=== PATIENT | male | born 1945 | race Caucasian/White ===

== ENCOUNTER → 2016-09-02 | Day surgery (SDC) | payer BC ==
[2016-08-13 14:43] VITALS: BMI 23.0
[~2016-09-02] MED LIST: ASCO500T3 PO; CALC600T9 PO; FLAX1CAP11 PO; LPT10 PO; MULTTAB58 PO; PROPOFOL IV EMULSION 10 MG/ML 20 ML VIAL IV ONE; SODIUM CHLORIDE 0.9% 500ML 500 ML IV ONE
--- NOTE | 2016-09-02 14:07 | Endo History and Physical ---
History & Physical Date of Service: Sep 02, 2016. Chief Complaint: tubular adenoma of colon Referring Physician: Dr. Edmond Estrada History of Present Illness 71 yo CM who presents for colonoscopy secondary to history of colon polyps. Past Medical History Cancer, High Cholesterol Past Surgical History Hx Cardiac Surgery: No Hx Internal Defibrillator: No Hx Pacemaker: No Hx Abdominal Surgery: Yes (L/R INGUINAL HERNIA REPAIR) Hx of Implantable Prosthesis: No Hx Post-Op Nausea and Vomiting: No Hx Cancer Surgery: Yes (PROSTATECTOMY) Hx Thoracic Surgery: No Hx Orthopedic: No Hx Urinary Tract Surgery: No Family History None Social History Smoking Status: Never Smoker Hx Substance Use: No Hx Alcohol Use: No Allergies Coded Allergies: No Known Allergies (Verified , 08/13/16) Current Medications Reported Home Medications Medications Dose Route/Sig Max Daily Dose Days Date Category Flax Seed Oil (Flaxseed (Linseed)) 1 Cap Cap 1 Cap PO QAM 07/19/15 Reported Vitamin C (Ascorbic Acid) 500 Mg Tab 500 Mg PO BID 01/10/14 Reported Multivitamin (Multiple Vitamin) 1 Tab Tab 1 Tab PO NOON 01/10/14 Reported Calcium + D (Calcium Carbonate-Vitamin D) 1 Tab Tab 1 Tab PO BID 01/10/14 Reported Atorvastatin Calcium (Atorvastatin) 10 Mg Tab 10 Mg PO NOON 01/10/14 Reported Vital Signs Weight (Kilograms): 70.45 Height (Feet): 5 Height (Inches): 9 Date Time Temp Pulse Resp B/P Pulse Ox O2 Delivery O2 Flow Rate FiO2 09/02/16 13:51 171/95 09/02/16 13:50 36.8 82 20 179/107 98 Room Air Physical Exam General Appearance: WD/WN, no apparent distress Respiratory/Chest: Auscultation: breath sounds normal Cardiovascular: Heart Auscultation: RRR Abdomen: Bowel Sounds: normal Inspection & Palpation: soft, non-distended, no tenderness, guarding & rebound Assessment and Plan Assessment: 71 yo CM who presents for colonoscopy secondary to history of colon polyps. Plan: Proceed with colonoscopy.
--- NOTE | 2016-09-02 14:49 | GI REPORT ---
Procedure Date: 09/02/2016 2:03 PM Procedure: Colonoscopy Indications: High risk colon cancer surveillance: Personal history of colonic polyps Medicines: Monitored Anesthesia Care Complications: No immediate complications. Estimated Blood Loss: Estimated blood loss: none. Procedure: Pre-Anesthesia Assessment: - Prior to the procedure, a History and Physical was performed, and patient medications and allergies were reviewed. The patient's tolerance of previous anesthesia was also reviewed. The risks and benefits of the procedure and the sedation options and risks were discussed with the patient. All questions were answered, and informed consent was obtained. Prior Anticoagulants: The patient has taken no previous anticoagulant or antiplatelet agents. ASA Grade Assessment: II - A patient with mild systemic disease. After reviewing the risks and benefits, the patient was deemed in satisfactory condition to undergo the procedure. After I obtained informed consent, the scope was passed under direct vision. Throughout the procedure, the patient's blood pressure, pulse, and oxygen saturations were monitored continuously. The scope was introduced through the anus and advanced to the terminal ileum. The colonoscopy was performed without difficulty. The patient tolerated the procedure well. The quality of the bowel preparation was good. The terminal ileum, ileocecal valve, appendiceal orifice, and rectum were photographed. Findings: The entire examined colon appeared normal. Impression: - The entire examined colon is normal. - No specimens collected. Recommendation: - Resume previous diet. - Continue present medications. - No repeat colonoscopy due to age and the absence of advanced adenomas. - Return to primary care physician as previously scheduled. Luis Angel Sommer DO 09/02/2016 2:48:36 PM This report has been signed electronically. Note Initiated On: 09/02/2016 2:03 PM
--- NOTE | 2016-09-02 14:50 | Discharge Instructions ---
Endoscopy Patient Instructions Date / Procedure(s) Performed Sep 02, 2016. Colonoscopy Allergy Information Coded Allergies: No Known Allergies (Verified , 08/13/16) Discharge Date / Findings Sep 02, 2016. Normal colonoscopy Medication Instructions OK to resume all medications today as prescribed Reported Home Medications Medications Dose Route/Sig Max Daily Dose Days Date Category Flax Seed Oil (Flaxseed (Linseed)) 1 Cap Cap 1 Cap PO QAM 07/19/15 Reported Vitamin C (Ascorbic Acid) 500 Mg Tab 500 Mg PO BID 01/10/14 Reported Multivitamin (Multiple Vitamin) 1 Tab Tab 1 Tab PO NOON 01/10/14 Reported Calcium + D (Calcium Carbonate-Vitamin D) 1 Tab Tab 1 Tab PO BID 01/10/14 Reported Atorvastatin Calcium (Atorvastatin) 10 Mg Tab 10 Mg PO NOON 01/10/14 Reported Provider Instructions Activity Restrictions - No exercising or heavy lifting for 24 hours. - Do not drink alcohol the day of the procedure. - Do not drive a car or operate machinery until the day after the procedure. - Do not make any important decisions or sign important papers in 24 hours after the procedure. Following Day: - Return to full activity which may include returning to work/school. Diet Start your diet with liquids and light foods (jello, soup, juice, toast). Then eat your usual diet if not nauseated. Treatment For Common After Affects For mild abdominal pain, bloating, or excessive gas: - Rest - Eat lightly - Lie on right side Follow-Up Information Follow-up with Dr. Edmond Estrada as scheduled Anesthesia Information What You Should Know You have had a procedure that required some medicine to reduce anxiety and discomfort. This treatment is called moderate sedation. After receiving the treatment, you may be sleepy, but you will be able to breathe on your own. The effects of the treatment may last for several hours. Follow these instructions along with Activity/Diet recommendations noted above: * Do NOT do anything where dizziness or clumsiness would be dangerous. * Rest quietly at home today, then you can be up and about tomorrow. * Have a responsible person stay with you the rest of today. * You may have had an I.V. today. If so, you may take the dressing off later today. Recommendations Call your doctor if: * Trouble breathing * Continuous vomiting for more than 24 hours * Temperature above 101 degrees * Severe abdominal pain or bloating * Pain not relieved by pain medicine ordered * There is increased drainage or redness from any incision * A large amount of rectal bleeding greater than 2-3 tablespoons. (If you had a polyp/s removed or have hemorrhoids, a small amount of blood - from the rectum is to be expected.) * You have any unanswered questions or concerns. IN THE EVENT OF A SERIOUS EMERGENCY, GO TO THE NEAREST EMERGENCY ROOM Your discharge instructions were prepared by provider Luis Angel Sommer. Patient Instructions Signature Page Param Butts Patient (or Guardian) Signature/Date: I have read and understand the instructions given to me by my caregivers. Caregiver/RN/Doctor Signature/Date: The above-named patient and/or guardian has received patient instructions on this date. + Original Patient Signature Page (only) stays with chart. Please make copy for patient.
[2016-09-02 15:06] VITALS: BP 144/76; PULSE 58; O2SAT 96
--- NOTE | 2016-09-02 15:26 | Anesthesiology Progress Note ---
Anesthesia Post Op Note Date & Time Sep 02, 2016 at 15:26 Vital Signs Pain Intensity: 0 Vital Signs Past 12 Hours Date Time Temp Pulse Resp B/P Pulse Ox O2 Delivery O2 Flow Rate FiO2 09/02/16 15:06 58 20 144/76 96 Room Air 09/02/16 14:53 59 20 116/61 96 Room Air 09/02/16 14:37 36.8 58 20 108/61 95 Room Air 09/02/16 13:51 171/95 09/02/16 13:50 36.8 82 20 179/107 98 Room Air Notes Mental Status: alert / awake / arousable Nausea / Vomiting: adequately controlled Pain: adequately controlled Airway Patency, RR, SpO2: stable & adequate BP & HR: stable & adequate Hydration State: stable & adequate Anesthetic Complications: no major complications apparent
== END | disposition home or self-care (01) ==
LOC: C.GI 13:19
PROVIDERS: ATTEND Internal Medicine
DX: Z12.11 Encounter for screening for malignant neoplasm of colon (principal); Z86.010 Personal history of colon polyps; E78.00 Pure hypercholesterolemia, unspecified; Z90.79 Acquired absence of other genital organ(s)

== ENCOUNTER → 2016-12-18 | Outpatient (CLI) | payer BC ==
[~2016-12-18] MED LIST changes: -PROPOFOL IV EMULSION 10 MG/ML 20 ML VIAL IV ONE; -SODIUM CHLORIDE 0.9% 500ML 500 ML IV ONE
[2016-12-18 10:51] LABS: BASO % 0.3 %; BASO ABS # 0.02 K/uL (0-0.2); COMPLETE YES; EOS % 3.3 %; HEMATOCRIT 45.5 % (42-52); IG% 0.3 %; LYMPH % 26.8 %; LYMPH ABS # 1.55 K/uL (1.2-3.4); MEAN CELL VOLUME 90.8 fL (80-100); MEAN CORPUSCULAR HEMOGLOBIN 31.1 pg (25-34); MEAN CORPUSCULAR HGB CONC 34.3 g/dl (32-36); MEAN PLATELET VOLUME 10.7 fL (7.4-10.4); NEUT % 60.3 %; PLATELET COUNT 232 K/uL (130-400); RED BLOOD COUNT 5.01 M/uL (4.7-6.1); WHITE BLOOD COUNT 5.79 K/uL (4.8-10.8)
[2016-12-18 11:23] LABS: ESTIMATED AVERAGE GLUCOSE 117 mg/dl; HA1C FLAG Normal (Normal)
[2016-12-18 14:50] LABS: ALT/SGPT 38 U/L (12-78); AST/SGOT 25 U/L (15-37); BLOOD UREA NITROGEN 17 mg/dl (7-18); BUN/CREATININE RATIO 15.2 (10-20); CALCIUM 9.2 mg/dl (8.5-10.1); CARBON DIOXIDE 29 mmol/L (21-32); CHLORIDE 107 mmol/L (98-107); GLUCOSE 99 mg/dl (70-99); POTASSIUM 4.1 mmol/L (3.5-5.1); SODIUM 141 mmol/L (136-145)
[2016-12-18 14:53] LABS: ALKALINE PHOSPHATASE 96 U/L (45-117); CHOLESTEROL 162 mg/dl (0-200); CHOLESTEROL/HDL RATIO 3.1; HDL CHOLESTEROL 53 mg/dl; LDL CHOLESTEROL CALCULATED 80 mg/dl; TRIGLYCERIDES 145 mg/dl (0-150); VERY LOW DENSITY LIPOPROT CALC 29 mg/dl
== END | disposition home or self-care (01) ==
LOC: C.LABBC 09:08
PROVIDERS: ATTEND Internal Medicine Geriatric Medicine
DX: E78.5 Hyperlipidemia, unspecified (principal); R03.0 Elevated blood-pressure reading, without diagnosis of hypertension; C84.A0 Cutaneous T-cell lymphoma, unspecified, unspecified site; R73.9 Hyperglycemia, unspecified

== ENCOUNTER → 2017-01-26 | Outpatient (CLI) | payer BC | END | disposition home or self-care (01) | LOC: C.MAMM 08:46 | PROVIDERS: ATTEND Internal Medicine Geriatric Medicine | DX: M81.0 Age-related osteoporosis without current pathological fracture (principal); M85.89 Other specified disorders of bone density and structure, multiple sites ==

== ENCOUNTER → 2017-05-05 | Outpatient (CLI) | payer BC | END | disposition home or self-care (01) | LOC: C.LABBC 10:52 | PROVIDERS: ATTEND Urology | DX: C61 Malignant neoplasm of prostate (principal) ==

== ENCOUNTER 2017-12-18 20:42 | Inpatient (IN) | payer BC, OTHER ==
[~2017-12-18] VITALS: Ht 175.3 cm; Wt 76.7 kg
[2017-12-18] MEDS ORDERED: SODIUM CHLORIDE 0.9% 1000ML 1,000 ML IV STA ×2 (22:28→23:46)
--- NOTE | 2017-12-18 22:29 | EMERGENCY ROOM VISIT NOTE ---
History Report prepared by Oliver: Bradley Corea Under the Supervision of: Juan Ramon MezaO. First contact with patient: 22:19 Chief Complaint: GI ASSESSMENT Stated Complaint: PAIN IN GI TRACK Nursing Triage Summary: had episode of diarrhea X 3 after eating chicken last night, then started to experience abdominal pain and cramping. using pepto might be feeling better History of Present Illness The patient is a 72 year old male who presents to the Emergency Room with complaints of intermittent diarrhea beginning this morning. The patient states he woke up this morning and had an episode of diarrhea. He reports he had two more episodes following his first. The patient notes he has not had any more episodes today. He states he had soup for lunch and he developed severe abdominal discomfort. The patient reports he developed a fever of 100.1-101 degrees. He notes a history of prostate cancer and inguinal hernias. The patient denies chest pain, nausea, vomiting, trouble urinating, blood in his urine, having symptoms like this before, being around sick people, alcohol use, tobacco use, a history of a bowel obstruction or bowel surgeries, and recent antibiotic use. Source of History: patient Onset: this morning Symptom Intensity: 3 episodes Quality: other (diarrhea) Timing: intermittent Associated Symptoms: + abdominal pain, No chest pain, No nausea, No vomiting , No urinary symptoms Review of Systems See HPI for pertinent positives & negatives. A total of 10 systems reviewed and were otherwise negative. Past Medical & Surgical Medical Problems: (1) acute sigmoid diverticulitis with perforation (2) Inguinal hernia (3) Peritonitis (acute) generalized (4) Prostate cancer Family History Cancer Hypertension Social History Smoking Status: Never Smoker Smokeless Tobacco Use: No Alcohol Use: none Marital Status: Housing Status: lives with significant other Occupation Status: retired Current/Historical Medications Scheduled Ascorbic Acid (Vitamin C), 500 MG PO BID Atorvastatin (Lipitor), 10 MG PO DAILY AT NOON Calcium Carbonate-Vitamin D (Calcium + D), 1 TAB PO BID Fish Oil ([place]-3), 1 CAP PO QAM Lisinopril (Prinivil), 10 MG PO DAILY AT NOON Multiple Vitamin (Multivitamin), 1 TAB PO NOON Allergies Coded Allergies: No Known Allergies (Verified , 12/18/17) Physical Exam Vital Signs Date Time Temp Pulse Resp B/P (MAP) Pulse Ox O2 Delivery O2 Flow Rate FiO2 4/22/18 01:00 88 20 96 Room Air 12/19/17 01:00 96 12/19/17 00:57 174/85 12/18/17 22:38 85 18 160/81 95 Room Air 12/18/17 20:48 38.5 103 20 158/82 95 Room Air Physical Exam GENERAL: Patient is awake, alert, and in no acute distress. Patient is resting comfortably and showing no signs of anxiety EYES: The conjunctivae are clear. The pupils are round and reactive. EARS, NOSE, MOUTH AND THROAT: The nose is without any evidence of any deformity. Mucous membranes are moist tongue is midline NECK: The neck is nontender and supple. RESPIRATORY: Normal respiratory effort is noted there is no evidence of wheezing rhonchi or rales CARDIOVASCULAR: Regular rate and rhythm noted there no murmurs rubs or gallops normal S1 normal S2 GASTROINTESTINAL: The abdomen is soft. Bowel sounds are present in all quadrants. Abdomen is moderately distended and diffusely tender. No guarding or rigidity. BACK: No midline tenderness or or step-off noted range of motion in flexion extension as well as rotation no signs of muscle spasm noted MUSCULOSKELETAL/EXTREMITIES: There is no evidence of gross deformity full range of motion is noted in the hips and shoulders SKIN: There is no obvious evidence of any rash. There are no petechiae, pallor or cyanosis noted. NEUROLOGIC: Patient is awake alert and oriented x3 strength is symmetric patellar reflexes are 2+ bilaterally Medical Decision & Procedures ER Provider Diagnostic Interpretation: Radiology results as stated below per my review and radiologist interpretation: Preliminary Findings Only See Final Report For Complete Findings CT ABDOMEN & PELVIS With Contrast: Moderate-volume pneumoperitoneum. The source of the free air is likely a perforation of the sigmoid colon from diverticulitis. No drainable abscess. Renal cysts and hypodensities that are too small characterize. Bibasilar atelectasis. Radiologist: Luis Thompson M.D. Study ready at 23:17 and initial results transmitted at 23:41 Clear Time Type Notes 12/18/17 23:43 Call Doctor Regarding Bowel Perforation with Free Air, called Dr. Patel on 12/18 23:43 (-04:00) Chest x-ray per my interpretation: Heart size normal. No definite infiltrates. Atelectasis at both bases. No acute disease. Laboratory Results Test 12/18/17 22:35 12/18/17 22:43 12/18/17 23:30 Direct Bilirubin 0.1 mg/dl (0-0.2) Lipase 88 U/L (73-393) Bedside Hemoglobin 16.3 g/dl (14.0-18.0) Bedside Hematocrit 48 % (42-52) Bedside Sodium 135 mEq/L (135-144) Bedside Potassium 3.9 mEq/L (3.3-5.0) Bedside Chloride 100 mEq/L (101-112) Bedside Total CO2 24 mEq/l (24-31) Bedside Blood Urea Nitrogen 19 mg/dl (7-18) Bedside Creatinine 0.9 mg/dl (0.6-1.3) Bedside Glucose (other) 135 mg/dl (70-99) Bedside Ionized Calcium (Rudi) 1.21 mmol/l (1.12-1.32) Urine Color YELLOW Urine Appearance CLEAR (CLEAR) Urine pH 7.5 (4.5-7.5) Urine Specific [place] > 1.045 (1.000-1.030) Urine Protein NEG (NEG) Urine Glucose (UA) NEG (NEG) Urine Ketones NEG (NEG) Urine Occult Blood NEG (NEG) Urine Nitrite NEG (NEG) Urine Bilirubin NEG (NEG) Urine Urobilinogen NEG (NEG) Urine Leukocyte Esterase NEG (NEG) Laboratory results per my review. Medications Administered Medications (Trade) Dose Ordered Sig/Jillian Route Start Time Stop Time Status Last Admin Dose Admin Sodium Chloride 1,000 ml @ 999 mls/hr Q1H1M STAT IV 12/18/17 22:28 12/18/17 23:28 DC 12/18/17 22:38 999 MLS/HR Piperacillin Sod/ Tazobactam Sod (Zosyn Iv) 4.5 gm NOW STAT IV 12/18/17 23:40 12/18/17 23:41 DC 12/18/17 23:40 4.5 GM Sodium Chloride 1,000 ml @ 250 mls/hr Q4H STAT IV 12/18/17 23:46 12/19/17 03:22 DC 12/18/17 23:46 250 MLS/HR Lidocaine HCl (Xylocaine 1% Inj (Local)) 20 ml STK-MED ONCE .ROUTE 12/19/17 01:22 12/19/17 01:23 DC 12/19/17 04:08 12 ML Bacitracin (Bacitracin Oint) 45 appln STK-MED ONCE .ROUTE 12/19/17 01:23 12/19/17 01:24 DC 12/19/17 04:11 45 APPLN Bupivacaine HCl (Marcaine 0.5% MPF Inj) 30 ml STK-MED ONCE .ROUTE 12/19/17 01:23 12/19/17 01:24 DC 12/19/17 04:08 12 ML Cefazolin Sodium (Ancef 2000mg Iv Push) 2,000 mg NOW STAT IV 12/19/17 01:44 12/19/17 01:45 DC 12/19/17 02:25 2,000 MG Metronidazole 500 mg/Prmx 100 ml @ 100 mls/hr NOW STAT IV 12/19/17 01:47 12/19/17 02:46 DC 12/19/17 02:20 100 MLS/HR Vancomycin HCl (Vancomycin Iv) 50 mg STK-MED ONCE .ROUTE 12/19/17 01:50 12/19/17 01:51 DC 12/19/17 04:03 1,000 MG ED Course 2221: The patient was evaluated in room B12B. A complete history and physical examination were performed. 2228: Ordered NSS 1,000 ml @ 999 mls/hr IV 2340: Ordered Zosyn IV 4.5gm IV 2346: Ordered NSS 1,000 ml @ 250 mls/hr IV 2350: Upon reevaluation, the patient is resting comfortably. I discussed results and treatment plan with the patient. He verbalizes agreement and understanding. The patient will be evaluated for further management and care. 2352: I discussed the patient's case with Dr. Escalante, General Surgery. He recommended I discuss the case with the hospitalist. 0000: I spoke with Dr. Johnson of the [facility] Hospitalist system. The patient will be evaluated for further management and care. Medical Decision Differential diagnosis: Etiologies such as appendicitis, diverticulitis, PUD, biliary pathology, UTI, pancreatitis, obstruction, mesenteric ischemia, aortic pathology, infections, inflammatory bowel disease, renal colic, as well as others were entertained. Nursing notes reviewed. Additional history is obtained for the patient's significant other. The patient is a 72-year-old male who presented to the emergency department for an evaluation of abdominal pain. The patient noticed fever. He also noticed multiple episodes of loose stools. The patient's physical exam was consistent with significant lower abdominal tenderness but initially he had no guarding or rigidity. The patient had an elevated white blood cell count. For this reason CT abdomen and pelvis was obtained. The patient was found to have signs of diverticulitis with perforation and pneumoperitoneum. I discussed patient's laboratory and radiographic studies with him. He was treated with IV fluids as well as IV antibiotics. I discussed his case with the on-call general surgeon. They have agreed to evaluate the patient in the emergency department for further management and disposition. Medication Reconcilliation Current Medication List: was personally reviewed by me Blood Pressure Screening Patient's blood pressure: Elevated blood pressure Blood pressure disposition: Elevated BP felt to be situational Consults Time Called: 234 Consulting Physician: Dr. Escalante, General Surgery Returned Call: 2352 I discussed the patient's case with Dr. Escalante, General Surgery. He recommended I discuss the case with the hospitalist. Additional Consults: Time Called: 235 Consulted Physician: Dr. Johnson of the [facility] Hospitalist system Returned Call: 0000 Additional Comments: I spoke with Dr. Johnson of the [facility] Hospitalist system. The patient will be evaluated for further management and care. Impression Primary Impression: Diverticulitis of intestine with perforation Additional Impression: Abdominal pain Scribe Attestation The scribe's documentation has been prepared under my direction and personally reviewed by me in its entirety. I confirm that the note above accurately reflects all work, treatment, procedures, and medical decision making performed by me. Departure Information Dispostion Being Evaluated By Hospitalist Referrals Edmond Estrada M.D. (PCP) Patient Instructions [facility] Problem Qualifiers Primary Impression: Diverticulitis of intestine with perforation Diverticulitis site: large intestine Diverticulitis bleeding: unspecified bleeding status Qualified Codes: K57.20 - Diverticulitis of large intestine with perforation and abscess without bleeding Additional Impression: Abdominal pain Abdominal location: generalized Qualified Codes: R10.84 - Generalized abdominal pain
[2017-12-18] MEDS ORDERED: OPTIRAY 320 IV PRN (22:45)
[2017-12-18 22:52] LABS: HEMATOCRIT 46.9 % (42-52); HEMOGLOBIN 16.3 g/dL (14.0-18.0); MEAN CELL VOLUME 88.8 fL (80-100); MEAN CORPUSCULAR HEMOGLOBIN 30.9 pg (25-34); MEAN CORPUSCULAR HGB CONC 34.8 g/dl (32-36); MEAN PLATELET VOLUME 10.2 fL (7.4-10.4); PLATELET COUNT 196 K/uL (130-400); RED CELL DISTRIBUTION WIDTH CV 13.5 % (11.5-14.5); RED CELL DISTRIBUTION WIDTH SD 44.1 fL (36.4-46.3); WHITE BLOOD COUNT 12.19 K/uL (4.8-10.8)
[2017-12-18 22:58] LABS: ISTAT CREATININE 0.9 mg/dl (0.6-1.3); ISTAT IONIZED CALCIUM 1.21 mmol/l (1.12-1.32); ISTAT POTASSIUM 3.9 mEq/L (3.3-5.0)
[2017-12-18 23:10] LABS: BASO % 0.1 %; BASO ABS # 0.01 K/uL (0-0.2); IG# 0.03 K/uL (0.00-0.02); LYMPH ABS # 0.49 K/uL (1.2-3.4); MONO % 3.9 %; MONO ABS # 0.48 K/uL (0.11-0.59); NEUT % 91.8 %; NEUT ABS # 11.18 K/uL (1.4-6.5)
[2017-12-18 23:11] LABS: ALBUMIN 3.7 gm/dl (3.4-5.0); CALCIUM 9.6 mg/dl (8.5-10.1); CREATININE 1.11 mg/dl (0.60-1.40); POTASSIUM 3.9 mmol/L (3.5-5.1)
[2017-12-18 23:14] LABS: TOTAL PROTEIN 7.8 gm/dl (6.4-8.2)
[2017-12-18] MEDS ORDERED: ATOR10TA82 PO (23:26)
[2017-12-18] MEDS ORDERED: LISI10TA PO (23:26)
[2017-12-18] MEDS ORDERED: OMEG10007 PO (23:26)
[2017-12-18] MEDS ORDERED: PIPERACILLIN/TAZOBACTAM 4.5 GM/100ML D5W IV STA (23:40)
[2017-12-19] VITALS (10 sets, daily range): BP systolic 118–178; BP diastolic 62–84; PULSE 63–92; TEMP 36.8–38.1; O2SAT 93–97; Ht 175.3 cm; Wt 76.7 kg
[2017-12-19] MEDS ORDERED: LIDOCAINE HCL 1% 20 ML VIAL ONE (01:22)
[2017-12-19] MEDS ORDERED: BACITRACIN OINT 15 GM TUBE ONE (01:23)
[2017-12-19] MEDS ORDERED: BUPIVACAINE 0.5 % 5 MG/1 ML MPF 30ML VIAL ONE (01:23)
--- NOTE | 2017-12-19 01:28 | Surgery Consultation ---
Consultation Date of Consultation: Dec 19, 2017. Attending Physician: History of Present Illness pt is a 72 year old male who presents to ER with one day history diarrhea and lower abdominal pain with fever, T 101, pt started diarrhea in the morning yesterday, after lunch pt developed severe lower abdominal pain with T 101, the pain is located at middle lower abdomen, pt denies chest pain, no nausea, no vomiting, no bloody stool, no blood in urine, pt had prostatectomy in 2012 for prostate cancer, pt's last colonoscopy was done last year which was normal finding, Past Medical/Surgical History Medical Problems: (1) Diverticulitis of intestine with perforation Status: Acute Family History Cancer Hypertension Social History Smoking Status: Never Smoker Smokeless Tobacco Use: No Alcohol Use: none Drug Use: none Marital Status: Housing Status: lives with significant other Occupation Status: retired Allergies Coded Allergies: No Known Allergies (Verified , 12/18/17) Home Medications Scheduled Ascorbic Acid (Vitamin C), 500 MG PO BID Atorvastatin (Lipitor), 10 MG PO DAILY AT NOON Calcium Carbonate-Vitamin D (Calcium + D), 1 TAB PO BID Fish Oil (Monson-3), 1 CAP PO QAM Lisinopril (Prinivil), 10 MG PO DAILY AT NOON Multiple Vitamin (Multivitamin), 1 TAB PO NOON Current Inpatient Medications Current Inpatient Medications Medications (Trade) Dose Ordered Sig/Jillian Route Start Time Stop Time Status Last Admin Dose Admin Ioversol (Optiray 320) 100 ml UD PRN IV 12/18/17 22:45 12/22/17 22:44 Sodium Chloride 1,000 ml @ 250 mls/hr Q4H STAT IV 12/18/17 23:46 12/19/17 03:45 12/18/17 23:46 250 MLS/HR Review of Systems Constitutional: + fever Eyes: No worsening of vision, No eye pain, No redness, No discharge, No diplopia, No problem reported ENT: No hearing loss, No unusual epistaxis, No nasal symptoms, No sore throat, No tinnitus, No dental problems, No trouble swallowing, No problem reported Respiratory: No cough, No sputum, No wheezing, No shortness of breath, No dyspnea on exertion, No dyspnea at rest, No hemoptysis, No problem reported Cardiovascular: + problem reported (HTN), No chest pain, No orthopnea, No PND, No edema, No claudication, No palpitations Abdomen: + pain Musculoskeletal: + problem reported (S/P appendectomy, bilt inguinal hernia repair) Genitourinary - Male: + problem reported (S/P prostatectomy for prostate cancer ) Neurologic: No memory loss, No paralysis, No weakness, No numbness/tingling, No vertigo, No balance problems, No problem reported Psychiatric: No depression symptoms, No anhedonism, No anxiety, No insomnia, No substance abuse, No problem reported Hematologic / Lymphatic: No abnormal bleeding/bruising, No clotting problems, No swollen lymph nodes, No night sweats, No problem reported Integumentary: No rash, No itch, No new/changing skin lesions, No color change , No bleeding, No problem reported Allergic / Immunologic: No environmental allergies, No seasonal allergies, No pet sensitivities, No food allergies, No hives, No frequent infections, No poor healing, No prolonged convalescence, No problem reported Physical Exam Date Time Temp Pulse Resp B/P (MAP) Pulse Ox O2 Delivery O2 Flow Rate FiO2 12/19/17 01:00 96 12/18/17 22:38 85 18 160/81 95 Room Air 12/18/17 20:48 38.5 103 20 158/82 95 Room Air General Appearance: WD/WN, + mild distress Head: normocephalic Eyes: normal inspection ENT: normal ENT inspection Neck: supple, no JVD Respiratory/Chest: chest non-tender, lungs clear, normal breath sounds, no respiratory distress Cardiovascular: regular rate, rhythm, no edema, no gallop, no JVD, no murmur Abdomen/GI: soft, no pulsatile mass, + tenderness (at lower abdomen, with rebound pain, ), + distended, + guarding, + rebound Back: normal inspection Extremities/Musculoskelatal: normal inspection, no calf tenderness, normal capillary refill, no pedal edema Neurologic/Psych: no motor/sensory deficits, alert, normal mood/affect Skin: normal color, warm/dry, no rash Lymphatic: no adenopathy Laboratory Results Last 24 Hours Test 12/18/17 22:35 12/18/17 22:43 12/18/17 23:30 White Blood Count 12.19 K/uL Red Blood Count 5.28 M/uL Hemoglobin 16.3 g/dL Hematocrit 46.9 % Mean Corpuscular Volume 88.8 fL Mean Corpuscular Hemoglobin 30.9 pg Mean Corpuscular Hemoglobin Concent 34.8 g/dl Platelet Count 196 K/uL Mean Platelet Volume 10.2 fL Neutrophils (%) (Auto) 91.8 % Lymphocytes (%) (Auto) 4.0 % Monocytes (%) (Auto) 3.9 % Eosinophils (%) (Auto) 0.0 % Basophils (%) (Auto) 0.1 % Neutrophils # (Auto) 11.18 K/uL Lymphocytes # (Auto) 0.49 K/uL Monocytes # (Auto) 0.48 K/uL Eosinophils # (Auto) 0.00 K/uL Basophils # (Auto) 0.01 K/uL RDW Standard Deviation 44.1 fL RDW Coefficient of Variation 13.5 % Immature Granulocyte % (Auto) 0.2 % Immature Granulocyte # (Auto) 0.03 K/uL Sodium Level 135 mmol/L Potassium Level 3.9 mmol/L Chloride Level 102 mmol/L Carbon Dioxide Level 24 mmol/L Anion Gap 9.0 mmol/L 16.0 mmol/L Blood Urea Nitrogen 18 mg/dl Creatinine 1.11 mg/dl Est Creatinine Clear Calc Drug Dose 59.3 ml/min Estimated GFR () 75.9 Estimated GFR (Non- 65.5 BUN/Creatinine Ratio 15.9 Random Glucose 126 mg/dl Calcium Level 9.6 mg/dl Total Bilirubin 0.7 mg/dl Direct Bilirubin 0.1 mg/dl Aspartate Amino Transf (AST/SGOT) 26 U/L Alanine Aminotransferase (ALT/SGPT) 35 U/L Alkaline Phosphatase 93 U/L Total Protein 7.8 gm/dl Albumin 3.7 gm/dl Lipase 88 U/L Bedside Hemoglobin 16.3 g/dl Bedside Hematocrit 48 % Bedside Sodium 135 mEq/L Bedside Potassium 3.9 mEq/L Bedside Chloride 100 mEq/L Bedside Total CO2 24 mEq/l Bedside Blood Urea Nitrogen 19 mg/dl Bedside Creatinine 0.9 mg/dl Bedside Glucose (other) 135 mg/dl Bedside Ionized Calcium (Rudi) 1.21 mmol/l Urine Color YELLOW Urine Appearance CLEAR Urine pH 7.5 Urine Specific [place] > 1.045 Urine Protein NEG Urine Glucose (UA) NEG Urine Ketones NEG Urine Occult Blood NEG Urine Nitrite NEG Urine Bilirubin NEG Urine Urobilinogen NEG Urine Leukocyte Esterase NEG Assessment & Plan CT scan- Moderate -volume pneumoperitoneum, the source of the free air is likely a perforation of the sigmoid colon from diverticulitis, CXR- no acute abnormal finding, Assessment: pt is a 72 year old male who presents to ER with one day history diarrhea nd abdominal pain with T 101, WBC 11.2 CT scan- Moderate -volume pneumoperitoneum IMP: pneumoperitoneum, peritonitis, acute sigmoid diverticulitis with perforation, Plan, I recommend to do emergent exploratory laparotomy, possible bowel resection and stoma, D/W benefits, risk and alternatives of the surgery with pt and his , the risks - may include but not limit such as infection, bleeding , sepsis, multiple organs failure, SC, DVT, stroke, , they understood, they agree with the surgery, I answered all questions, pre-op EKG, IV antibiotic in,
[2017-12-19] MEDS ORDERED: METRONIDAZOLE 500MG / 100ML NSS IV STA (01:41)
--- NOTE | 2017-12-19 01:41 | History & Physical Bridge Note ---
H&P Re-Evaluation Bridge Note: I have examined the patient, reviewed the History & Physical and in the interval since the performance of the History & Physical I have noted the following changes of clinical significance: No changes noted
[2017-12-19] MEDS ORDERED: CEFAZOLIN SOD 2000MG/15 ML IV PUSH IV STA (01:44)
[2017-12-19] MEDS ORDERED: METRONIDAZOLE 500MG / NSS IV STA (01:47)
[2017-12-19] MEDS ORDERED: VANCOMYCIN HCL 1000MG/20ML VIAL ONE (01:50)
[2017-12-19] MEDS ORDERED: MIDAZOLAM HCL 1 MG/ML 2ML VIAL ONE (01:57)
[2017-12-19] MEDS ORDERED: FENTANYL CITRATE INJ 50 MCG/1 ML 2 ML VIAL ONE ×3 (01:57→04:52)
[2017-12-19] MEDS ORDERED: PROPOFOL IV EMULSION 10 MG/ML 20 ML VIAL IV ONE (02:50)
[2017-12-19] MEDS ORDERED: ROCURONIUM BROMIDE 10 MG/ML 5 ML VIAL IV ONE ×2 (02:51→03:20)
[2017-12-19] MEDS ORDERED: ONDANSETRON INJ 2 MG/ML 2 ML VIAL ONE (02:51)
[2017-12-19] MEDS ORDERED: LIDOCAINE HCL 2% 2 ML VIAL (20MG/ML) ONE (02:51)
[2017-12-19] MEDS ORDERED: NEOSTIGMINE METHYLSULFATE 5 MG/5 ML SYR ONE (02:52)
[2017-12-19] MEDS ORDERED: EpHEDrine SULFATE INJ 50 MG/ML AMP ONE (02:52)
[2017-12-19] MEDS ORDERED: DEXAMETHASONE SOD INJ 4 MG/ML VIAL ONE (02:52)
[2017-12-19] MEDS ORDERED: GLYCOPYRROLATE INJ 0.2 MG/ML VIAL ONE (02:52)
[2017-12-19] MEDS ORDERED: ONDANSETRON INJ 2 MG/ML 2 ML VIAL IV PRN ×2 (03:00→04:45)
[2017-12-19] MEDS ORDERED: MEPERIDINE HCL 25 MG/ML CARP IV PRN (03:00)
[2017-12-19] MEDS ORDERED: HYDROmorphone INJ 1 MG/ML SYR IV PRN (03:00)
[2017-12-19] MEDS ORDERED: FENTANYL CITRATE INJ 50 MCG/1 ML 2 ML VIAL IV PRN (03:00)
[2017-12-19] MEDS ORDERED: ATROPINE SULFATE 0.1 MG/ML 5ML SYR IV PRN (03:00)
[2017-12-19] MEDS ORDERED: LABETALOL HCL IV 5 MG/ML 20ML IV PRN (03:00)
[2017-12-19] MEDS ORDERED: EpHEDrine SULFATE INJ 50 MG/ML AMP IV PRN (03:00)
--- NOTE | 2017-12-19 04:32 | [facility] Post Operative Brief Note ---
Immediate Operative Summary Operative Date Dec 19, 2017. Pre-Operative Diagnosis Pneumoperitoneum, peritonitis, acute sigmoid diverticulitis with perforation Post-Operative Diagnosis Same as Preop Procedure(s) Performed Sigmoid Colon Resection with Placement of a Stoma; Appendectomy Surgeon Dr. Escalante [employer] Fundraising Director Surgeon(s) None Estimated Blood Loss 30 ml Findings See Below (stone in appendix, size 0.6x0.6cm) Pneumoperitoneum, peritonitis,acute sigmoid diverticulitis with perforation Fluids (cc crystalloids) 2000ml Specimens Microbiology 1. Perineal Fluid-gram stain, C & S, aerobic and anerobic Permanent A. Appendix B. Portion of Sigmoid Colon Drains DEBRA x1 Anesthesia Type General Complication(s) none Disposition Accompanied Pt To Recover: yes Disposition: Recovery Room / PACU
[2017-12-19] MEDS ORDERED: MoRPHine SULFATE 4 MG/ML 1 ML CARP\\VIAL IV PRN (04:45)
[2017-12-19] MEDS ORDERED: HYDROmorphone INJ 2 MG/ML SYR/VIAL IV PRN (04:45)
--- NOTE | 2017-12-19 05:34 | Anesthesiology Progress Note ---
Anesthesia Post Op Note Date & Time Dec 19, 2017 at 05:33 Vital Signs Pain Intensity: 2.0 Vital Signs Past 12 Hours Date Time Temp Pulse Resp B/P (MAP) Pulse Ox O2 Delivery O2 Flow Rate FiO2 12/19/17 05:20 36.2 65 16 148/87 98 Nasal Cannula 4 12/19/17 05:10 65 16 161/84 98 Nasal Cannula 4 12/19/17 05:00 69 16 158/82 100 Oxymask 10 12/19/17 04:50 66 16 171/93 100 Oxymask 10 12/19/17 04:44 36.4 88 16 154/80 100 Oxymask 10 12/19/17 01:00 88 20 96 Room Air 12/19/17 01:00 96 12/19/17 00:57 174/85 12/18/17 22:38 85 18 160/81 95 Room Air 12/18/17 20:48 38.5 103 20 158/82 95 Room Air Notes Mental Status: alert / awake / arousable, participated in evaluation Pt Amnestic to Procedure: Yes Nausea / Vomiting: adequately controlled Pain: adequately controlled Airway Patency, RR, SpO2: stable & adequate BP & HR: stable & adequate Hydration State: stable & adequate Anesthetic Complications: no major complications apparent
--- NOTE | 2017-12-19 05:56 | DIAGNOSTIC IMAGING REPORT ---
ABD/PELVIS IV CONTRAST ONLY CT DOSE: 306.75 mGy.cm HISTORY: Pain. Edema. diarrhea and fever TECHNIQUE: Multiaxial CT images of the abdomen and pelvis were performed following the use of intravenous contrast. A dose lowering technique was utilized adhering to the principles of ALARA. COMPARISON STUDY: None. FINDINGS: Lung bases are clear. Minimal basilar dependent atelectasis. Liver is uniform. Renal cysts are present bilaterally. No evidence renal hydronephrosis. Scattered pneumoperitoneum. Abdominal bowel pattern is nonobstructive. Findings of nonspecific small bowel enteritis. Probable moderate sigmoid diverticulitis. Minimal pericolonic infiltrative change. Scattered additional colonic diverticuli. IMPRESSION: 1. Mild bibasilar atelectasis. 2. Scattered small bubbles of free air throughout the upper and mid abdominal region. 3. This potentially originates from components of mild sigmoid diverticulitis versus scattered diverticulum throughout the remainder the colon. 4. Bilateral renal cysts. 5. No evidence for abscess collection or obstruction. The above report was generated using voice recognition software. It may contain grammatical, syntax or spelling errors. Electronically signed by: Eric Oliveira M.D. 12/19/2017 5:55 AM Dictated Date/Time: 12/19/2017 5:52 AM
--- NOTE | 2017-12-19 06:11 | DIAGNOSTIC IMAGING REPORT ---
CHEST 2 VIEWS ROUTINE CLINICAL HISTORY: ABDOMINAL PAIN/GI pain COMPARISON STUDY: 05/08/2013 FINDINGS: Mild emphysematous change. Lungs are considered clear. The diaphragms are smooth. IMPRESSION: Mild emphysematous change. No acute process. The above report was generated using voice recognition software. It may contain grammatical, syntax or spelling errors. Electronically signed by: Eric Oliveira M.D. 12/19/2017 6:10 AM Dictated Date/Time: 12/19/2017 6:10 AM
[2017-12-19] MEDS: PIPERACILL/TAZOBAC IV 3.375 GM in DEXTROSE 5% 100ML 100 ML IV SCH ×3 (06:12→21:15)
[2017-12-19] MEDS: D5W AND 1/2NSS + 20MEQ KCL 1,000 ML IV SCH ×2 (06:12→16:05)
[2017-12-19 06:24] LABS: BASO % 0.1 %; BASO ABS # 0.01 K/uL (0-0.2); HEMATOCRIT 43.2 % (42-52); HEMOGLOBIN 14.6 g/dL (14.0-18.0); IG# 0.04 K/uL (0.00-0.02); LYMPH % 3.5 %; LYMPH ABS # 0.48 K/uL (1.2-3.4); MEAN CELL VOLUME 89.8 fL (80-100); MEAN CORPUSCULAR HEMOGLOBIN 30.4 pg (25-34); MEAN CORPUSCULAR HGB CONC 33.8 g/dl (32-36); MEAN PLATELET VOLUME 10.3 fL (7.4-10.4); MONO % 3.6 %; MONO ABS # 0.49 K/uL (0.11-0.59); NEUT % 92.5 %; NEUT ABS # 12.69 K/uL (1.4-6.5); PLATELET COUNT 184 K/uL (130-400); RED CELL DISTRIBUTION WIDTH CV 13.6 % (11.5-14.5); RED CELL DISTRIBUTION WIDTH SD 44.9 fL (36.4-46.3); WHITE BLOOD COUNT 13.71 K/uL (4.8-10.8)
[2017-12-19 07:08] LABS: INR 1.1 (0.9-1.1)
[2017-12-19 07:13] LABS: CALCIUM 8.5 mg/dl (8.5-10.1); CREATININE 1.15 mg/dl (0.60-1.40); POTASSIUM 3.8 mmol/L (3.5-5.1)
[2017-12-19 07:15] LABS: TOTAL PROTEIN 6.5 gm/dl (6.4-8.2)
[2017-12-19] MEDS: MoRPHine SULFATE 2 MG/ML CARP IV PRN ×4 (07:54→21:15)
[2017-12-19] MEDS: ATORVASTATIN 10 MG TAB NG SCH (08:53)
[2017-12-19] MEDS: LISINOPRIL 10 MG TAB NG SCH (08:53)
[2017-12-19] MEDS ORDERED: ENOXAPARIN 40 MG/0.4 ML SYR SQ SCH (09:00)
--- NOTE | 2017-12-19 09:24 | OPERATIVE REPORT ---
DATE OF OPERATION: 12/19/2017 PREOPERATIVE DIAGNOSES: Pneumoperitoneum, peritonitis, acute sigmoid colon diverticulitis with perforation. POSTOPERATIVE DIAGNOSES: Pneumoperitoneum, peritonitis, acute sigmoid colon diverticulitis with perforation. PROCEDURE: Exploratory laparotomy, sigmoid colon resection, colostomy, appendectomy. SURGEON: Dr. Harmony Escalante. ANESTHESIA: General. ESTIMATED BLOOD LOSS: About 30 mL. FINDINGS: Pneumoperitoneum, peritonitis, acute sigmoid colon diverticulitis with perforation and stone in appendix. COMPLICATIONS: None. INDICATIONS FOR THE PROCEDURE: This is a 72-year-old gentleman who presented to the ED with acute diarrhea, abdominal pain, temperature 101; and the patient had a CT scan, with diagnoses of pneumoperitoneum, acute sigmoid colon diverticulitis with perforation. I recommended to do emergency exploratory laparotomy, possible bowel resection, stoma. I did talk to the patient and patient's about the benefit, the risk and alternate procedure. I indicated the risks may include, but not limited such as bleeding, infection, sepsis, multiple organ failure, DVT, myocardial infarction, stroke, abscess and even . The patient and his understand. They signed informed consent and I answered all questions. They agreed to proceed with the surgery. I answered all questions. DETAILS OF PROCEDURE: We brought the patient to the OR, put the patient in the supine position. The patient received SCD on bilateral legs to prevent DVT. Also, the patient received 2 g Ancef IV for prophylactic antibiotic. Also, the patient received 500 mg Flagyl for prophylactic antibiotics. The patient received general anesthesia without difficulty. The patient received a Charles catheter inserted. Abdomen was prepped and draped in routine sterile fashion. After time-out, I made a midline incision and into the abdomen without difficulty. Then, there are some free air coming off from the abdomen. There was moderate contamination. There was some pus in the abdominal cavity. We did send pus for culture and then, we mobilized the small bowel, found that the patient had acute sigmoid colon diverticulitis with perforation on the sigmoid colon. the perforation is small, but when I compress the sigmoid colon, there is some fluid came out from perforation, some fat and small bowel cover the perforation, We mobilized sigmoid colon and made a window on the mesentery. We used a TIA staple transection on the distal junction between the rectum and sigmoid colon. We rechecked the staple lines closed nicely, no leak, no active bleeding. Then, we made another window on the sigmoid colon about 5 cm above the perforation of the colon and then, we used the Endo-LOLA staple and transection the sigmoid colon and then we used a vascular staple to transection the mesentery. We rechecked and no active bleeding and based on that the patient had a moderate contamination and also the rectal area filled with full stool. We decided to do the temporary colostomy on the left side of the abdomen. First, I put a 10-mm DEBRA drainage on the pelvic area. Then, used normal saline 1 liter including 1 g vancomycin to flush the abdomen and suctioned all fluid out and we checked the liver and gallbladder is normal. However, in this moment, we checked the patient's appendix and found the patient had a large appendix stones inside the appendix and the patient's potential to develop acute appendicitis in the future. I decided to do the appendectomy. I used the harmonic take down the appendiceal and used Endo-LOLA staple transection on the base of the appendix, rechecked the staple line intact, no active bleeding and at this moment, we also removed the sigmoid colon about 10 cm long. We rechecked the staple line, all were intact and no active bleeding. Then, we created the temporary colostomy on the proximal sigmoid colon, distal descending colon on the left side of the abdomen. We removed the pouch over the skin on the left side of the abdomen and opened the fascia and passed two fingers, opened peritoneum and then passed the colon through the incision and then I used 0-Vicryl to attach the colon and the fascial layer interruptedly. At this moment, once the hemostasis obtained, then we closed the abdominal midline incision, fascial layer by using #1-PDS continuous running and we used #2-0 Vicryl to close subcutaneous layer continuous running, closed skin by using kaelyn. Now, we created a temporary colostomy on the left side of the abdomen. Now, we used a Bovie to takedown the staple line and no active bleeding and there is a colostomy, it is pink, good blood circulation. Then, I used a 0-Vicryl to attach the colostomy onto the dermal layer interruptedly, and we put the bag on and put the dressing on. The patient tolerated the procedure well. All the instruments, needle, and sponge count were correct x2 at the end of case. The patient was extubated in the OR and transferred to recovery room in stable condition. After procedure, I did talk to the patient and family members about the OR finding and procedure we did and they understand. The specimen was sent to pathology. I attest to the content of the Intraoperative Record and any orders documented therein. Any exceptions are noted below. BOOGIE
--- NOTE | 2017-12-19 09:27 | Surgery Progress Note ---
Surgery Progress Note Date of Service Dec 19, 2017. Subjective Post OP Day: POD # 0 s/p ex lap, sigmoid resection with end colostomy Objective Vital Signs: Date Time Temp Pulse Resp B/P (MAP) Pulse Ox O2 Delivery O2 Flow Rate FiO2 12/19/17 08:30 37.3 75 16 118/62 (80) 96 3.0 12/19/17 07:31 36.8 76 16 138/65 (89) 96 3.0 12/19/17 06:30 37.1 72 17 156/79 (104) 95 Nasal Cannula 2.0 12/19/17 06:00 37.1 63 16 150/74 (99) 93 Nasal Cannula 2.0 12/19/17 05:33 37.0 69 18 178/84 94 Nasal Cannula 2.0 12/19/17 05:33 94 Nasal Cannula 2.0 12/19/17 05:20 36.2 65 16 148/87 98 Nasal Cannula 4 12/19/17 05:10 65 16 161/84 98 Nasal Cannula 4 12/19/17 05:00 69 16 158/82 100 Oxymask 10 12/19/17 04:50 66 16 171/93 100 Oxymask 10 12/19/17 04:44 36.4 88 16 154/80 100 Oxymask 10 12/19/17 01:00 88 20 96 Room Air 12/19/17 01:00 96 12/19/17 00:57 174/85 12/18/17 22:38 85 18 160/81 95 Room Air 12/18/17 20:48 38.5 103 20 158/82 95 Room Air Physical Exam: MYRA drainage (bloody serosanguineous), nasogastric drainage, urine output (clear yellow urine) General Appearance: WD/WN, no apparent distress Head: normocephalic, atraumatic Neck: trachea midline Respiratory/Chest: no respiratory distress, no accessory muscle use Abdomen: non distended, soft, no organomegaly, no pulsatile mass, + tenderness (appropriate post op), + pertinent finding (ostomy present, mild edema, pink, no ostomy output.) Incision(s): clean, dry (dressing clean and dry, incision not inspected POD # 0 ) Laboratory Results: Results Past 24 Hours Test 12/18/17 22:35 12/18/17 22:43 12/18/17 23:30 12/19/17 05:58 Range/Units White Blood Count 12.19 13.71 4.8-10.8 K/uL Red Blood Count 5.28 4.81 4.7-6.1 M/uL Hemoglobin 16.3 14.6 14.0-18.0 g/dL Hematocrit 46.9 43.2 42-52 % Mean Corpuscular Volume 88.8 89.8 80-100 fL Mean Corpuscular Hemoglobin 30.9 30.4 25-34 pg Mean Corpuscular Hemoglobin Concent 34.8 33.8 32-36 g/dl Platelet Count 196 184 130-400 K/uL Mean Platelet Volume 10.2 10.3 7.4-10.4 fL Neutrophils (%) (Auto) 91.8 92.5 % Lymphocytes (%) (Auto) 4.0 3.5 % Monocytes (%) (Auto) 3.9 3.6 % Eosinophils (%) (Auto) 0.0 0.0 % Basophils (%) (Auto) 0.1 0.1 % Neutrophils # (Auto) 11.18 12.69 1.4-6.5 K/uL Lymphocytes # (Auto) 0.49 0.48 1.2-3.4 K/uL Monocytes # (Auto) 0.48 0.49 0.11-0.59 K/uL Eosinophils # (Auto) 0.00 0.00 0-0.5 K/uL Basophils # (Auto) 0.01 0.01 0-0.2 K/uL RDW Standard Deviation 44.1 44.9 36.4-46.3 fL RDW Coefficient of Variation 13.5 13.6 11.5-14.5 % Immature Granulocyte % (Auto) 0.2 0.3 % Immature Granulocyte # (Auto) 0.03 0.04 0.00-0.02 K/uL Sodium Level 135 134 136-145 mmol/L Potassium Level 3.9 3.8 3.5-5.1 mmol/L Chloride Level 102 104 98-107 mmol/L Carbon Dioxide Level 24 23 21-32 mmol/L Anion Gap 9.0 16.0 7.0 3-11 mmol/L Blood Urea Nitrogen 18 15 7-18 mg/dl Creatinine 1.11 1.15 0.60-1.40 mg/dl Est Creatinine Clear Calc Drug Dose 59.3 57.2 ml/min Estimated GFR () 75.9 72.8 Estimated GFR (Non- 65.5 62.8 BUN/Creatinine Ratio 15.9 13.1 10-20 Random Glucose 126 161 70-99 mg/dl Calcium Level 9.6 8.5 8.5-10.1 mg/dl Total Bilirubin 0.7 0.9 0.2-1 mg/dl Direct Bilirubin 0.1 0-0.2 mg/dl Aspartate Amino Transf (AST/SGOT) 26 24 15-37 U/L Alanine Aminotransferase (ALT/SGPT) 35 29 12-78 U/L Alkaline Phosphatase 93 78 45-117 U/L Total Protein 7.8 6.5 6.4-8.2 gm/dl Albumin 3.7 3.0 3.4-5.0 gm/dl Lipase 88 73-393 U/L Bedside Hemoglobin 16.3 14.0-18.0 g/dl Bedside Hematocrit 48 42-52 % Bedside Sodium 135 135-144 mEq/L Bedside Potassium 3.9 3.3-5.0 mEq/L Bedside Chloride 100 101-112 mEq/L Bedside Total CO2 24 24-31 mEq/l Bedside Blood Urea Nitrogen 19 7-18 mg/dl Bedside Creatinine 0.9 0.6-1.3 mg/dl Bedside Glucose (other) 135 70-99 mg/dl Bedside Ionized Calcium (Rudi) 1.21 1.12-1.32 mmol/l Urine Color YELLOW Urine Appearance CLEAR CLEAR Urine pH 7.5 4.5-7.5 Urine Specific [place] > 1.045 1.000-1.030 Urine Protein NEG NEG Urine Glucose (UA) NEG NEG Urine Ketones NEG NEG Urine Occult Blood NEG NEG Urine Nitrite NEG NEG Urine Bilirubin NEG NEG Urine Urobilinogen NEG NEG Urine Leukocyte Esterase NEG NEG Globulin 3.5 2.5-4.0 gm/dl Albumin/Globulin Ratio 0.9 0.9-2 Test 12/19/17 06:31 Range/Units Prothrombin Time 11.2 9.0-12.0 SECONDS Prothromb Time International Ratio 1.1 0.9-1.1 Microbiology Results 12/19/17 Gram Stain - Final, Resulted 12/19/17 Bacterial Culture, Resulted Pending Assessment & Plan POD # 0 s/p ex lap, sigmoid resection with end Colostomy -vitals stable -afebrile - moderate pain controlled - ostomy pink, mild edema - myra drain with bloody serosanguineous output, H&H stable - Leukocytosis of 13K, slight increase most likely post op - adequate urine output Plan: Continue current pain management Continue NGT to LIS today D/C Charles Continue IV Fluids Continue NPO Continue myra drain to bulb suction OOB to chair and ambulation with assistance later today Continue IV Antibiotics, await results of culture, consult ID repeat am labs Dr. Escalante has seen and examined patient, agrees with above
[2017-12-20] MEDS: D5W AND 1/2NSS + 20MEQ KCL 1,000 ML IV SCH ×2 (01:19→13:42)
[2017-12-20 03:30] VITALS: BP 142/82; PULSE 88; TEMP 37.4; O2SAT 92
[2017-12-20] MEDS: METRONIDAZOLE / NSS 500 MG in PREMIXED NSS 100 ML IV SCH ×3 (06:33→23:04)
[2017-12-20 07:02] VITALS: BP 152/84; PULSE 90; TEMP 37.9; O2SAT 94
[2017-12-20 07:13] LABS: HEMATOCRIT 34.2 % (42-52); HEMOGLOBIN 11.7 g/dL (14.0-18.0); MEAN CELL VOLUME 89.5 fL (80-100); MEAN CORPUSCULAR HEMOGLOBIN 30.6 pg (25-34); MEAN CORPUSCULAR HGB CONC 34.2 g/dl (32-36); MEAN PLATELET VOLUME 9.6 fL (7.4-10.4); PLATELET COUNT 164 K/uL (130-400); RED CELL DISTRIBUTION WIDTH CV 14.1 % (11.5-14.5); RED CELL DISTRIBUTION WIDTH SD 46.2 fL (36.4-46.3); WHITE BLOOD COUNT 11.36 K/uL (4.8-10.8)
[2017-12-20 07:42] LABS: CREATININE 0.94 mg/dl (0.60-1.40); POTASSIUM 3.9 mmol/L (3.5-5.1)
[2017-12-20] MEDS: ATORVASTATIN 10 MG TAB NG SCH (09:38)
[2017-12-20] MEDS: CIPROFLOXACIN / D5W 400 MG in PREMIXED IN D5W 200 ML IV SCH ×2 (09:38→20:49)
[2017-12-20] MEDS: LISINOPRIL 10 MG TAB NG SCH (09:38)
[2017-12-20] MEDS: MoRPHine SULFATE 2 MG/ML CARP IV PRN (09:39)
--- NOTE | 2017-12-20 09:49 | Clinical Documentation Query ---
CLINICAL DOCUMENTATION QUERY 72-y/o male with pneumoperitoneum, peritonitis, & acute sigmoid colon diverticulitis with perforation. He presented febrile 38.5, tachycardic 103, and with leukocytosis 12.19. In your clinical opinion is this patient being managed for: ( ) Early sepsis Present on Admission (POA) treated with IVF boluses, early surgical intervention, and aggressive IV antibiotics. ( ) Not Agree ( ) Other explanation of clinical findings (Please Explain) ( ) Unable to determine (Please Define) ( ) Need to Discuss The medical record reflects the following clinical findings, treatment, and risk factors. Clinical Indicators: As above. Treatment: IVF boluses, daily CBC's, Surgical intervention, IV Cipro, IV Flagyl, IV Zosyn, Risk Factors: Age, Perforated bowel. Please clarify and document your clinical opinion in the progress notes and discharge summary. Terms such as "probable", "suspected", "likely", "questionable", "possible", or "still to be ruled out" are acceptable. IF IN AGREEMENT, YOU MUST DOCUMENT ABOVE DIAGNOSTIC STATEMENT IN DAILY PROGRESS NOTES AND DISCHARGE SUMMARY. This document is not part of the patient's record. SIRS Criteria SIRS criteria are present in many hospitalized patients, including those who never develop infection and never incur adverse outcomes. SIRS may simply reflect an appropriate host response that is frequently adaptive. SIRS criteria, such as pyrexia or neutrophilia should alert the CDS to a potential infectious process. 2 of 4 SIRS criteria may clinically support both an infectious process and a systemic process, i.e. Sepsis. Temperature >38C or <36C Heart Rate >90/min Respiratory Rate >20/min or PaCO2 <32 mm Hg WBC >12,000/mm3 or <4000/mm3 or >10% immature bands Thank You, Franklyn Britt, RN [phone]
--- NOTE | 2017-12-20 10:23 | Progress Note ---
Progress Note Date of Service Dec 20, 2017. Progress Note ID Consult Dictated #[id number] A/P: 1. Peritonitis 2. Fever 3. Leukocytosis - improving -Continue IV abx for now, follow OR cultures -Will follow, thank you
--- NOTE | 2017-12-20 11:04 | INFECT. DISEASE CONSULTATION ---
DATE OF CONSULTATION: 12/20/2017 HISTORY OF PRESENT ILLNESS: This is a 72-year-old gentleman who presented to the hospital on December 18 with acute onset lower abdominal pain and a fever of 101 degrees at home. He also complained of diarrhea which had started 1 day prior to admission. In the Emergency Room, a CAT scan of the abdomen and pelvis was performed and did show free air and perforation. There was no abscess or collection. He was evaluated by surgery and taken to the operating room on the where he underwent appendectomy and repair of a perforation. He was initially placed on Zosyn and then was changed to Cipro and Flagyl. Overnight, he had a T-max of 37.9. Overall, he is feeling better. His pain is controlled. He states he has less abdominal spasm today. His leukocytosis improved from 13 to 11. Fluid culture was obtained in the operating room and is pending. He remains on antibiotics. He currently denies any fevers or chills. He is tolerating antibiotics well. His NG tube is still in place. He is hungry. He denies any chest pain, cough or shortness of breath. REVIEW OF SYSTEMS: His remaining review of systems is unremarkable. Infectious diseases was consulted for p.o. antibiotics. PAST MEDICAL HISTORY: Significant for history of diverticulitis with perforation. FAMILY HISTORY: Noncontributory. SOCIAL HISTORY: Negative for tobacco use, alcohol use or drug use. ALLERGIES: He has no known drug allergies. CURRENT MEDICATIONS: Include Cipro, Flagyl, lisinopril, Lipitor, potassium, Zofran, morphine, Dilaudid. PHYSICAL EXAMINATION: VITAL SIGNS: He is currently febrile with temperature of 37.9. This is his T-max for the past 24 hours, pulse 90, respiratory rate 16, blood pressure 152/84, oxygen saturation 94% on room air. GENERAL: He is awake, alert and oriented x3. He is in no acute distress. HEENT: Mucous membranes are moist. Extraocular muscles are intact. NG tube is in place with bilious drainage. HEART: Regular. LUNGS: Clear. ABDOMEN: Soft. Ostomy is present with minimal liquid stool. DEBRA drain is in place with serosanguineous fluid. Dressings are intact. EXTREMITIES: There is no lower extremity edema. LABORATORY STUDIES: CBC today, white blood cell count of 11.3, hemoglobin 11.7, platelets 164. Chemistry panel: Sodium 133, potassium 3.9, chloride 102, bicarbonate 27, BUN 13, creatinine 0.9, glucose 118. LFTs are normal. UA was negative in the ER. Cultures are pending. IMAGING DATA: As above. ASSESSMENT AND PLAN: Peritonitis. He will remain on empiric antibiotics pending the results of cultures. If he continues to have fevers, blood culture should be obtained. Additional antibiotic recommendations will be made when cultures are final and the patient is tolerating a p.o. diet. We will follow along with you. Thank you for this consultation.
[2017-12-20 14:58] VITALS: BP 124/72; PULSE 95; TEMP 37.7; O2SAT 94
[2017-12-20 16:00] VITALS: O2SAT 94
--- NOTE | 2017-12-20 18:04 | Surgery Progress Note ---
Surgery Progress Note Date of Service Dec 20, 2017. Subjective Post OP Day: 1 + feeling well pt is stable, good control incision pain, no nausea, no vomiting, DEBRA 150 ml, NG tube -550ml, Objective Vital Signs: Date Time Temp Pulse Resp B/P (MAP) Pulse Ox O2 Delivery O2 Flow Rate FiO2 12/20/17 16:00 94 Room Air 12/20/17 14:58 37.7 95 18 124/72 (89) 94 Room Air 12/20/17 07:30 Room Air 12/20/17 07:02 37.9 90 16 152/84 (106) 94 Room Air 12/20/17 03:30 37.4 88 16 142/82 (102) 92 Room Air 12/19/17 23:25 Room Air 12/19/17 23:04 37.4 12/19/17 23:00 37.8 92 18 124/71 (88) 94 Room Air 12/19/17 19:05 37.4 88 16 130/69 (89) 97 Room Air General Appearance: WD/WN, no apparent distress Head: normocephalic Neck: supple, no JVD Respiratory/Chest: chest non-tender, lungs clear Cardiovascular: regular rate, rhythm, no edema, no gallop, no JVD, no murmur Abdomen: normal bowel sounds, non distended, soft, no organomegaly, + tenderness Incision(s): clean, dry, intact Extremities: normal range of motion, non-tender, normal inspection Laboratory Results: Results Past 24 Hours Test 12/20/17 06:47 Range/Units White Blood Count 11.36 4.8-10.8 K/uL Red Blood Count 3.82 4.7-6.1 M/uL Hemoglobin 11.7 14.0-18.0 g/dL Hematocrit 34.2 42-52 % Mean Corpuscular Volume 89.5 80-100 fL Mean Corpuscular Hemoglobin 30.6 25-34 pg Mean Corpuscular Hemoglobin Concent 34.2 32-36 g/dl RDW Standard Deviation 46.2 36.4-46.3 fL RDW Coefficient of Variation 14.1 11.5-14.5 % Platelet Count 164 130-400 K/uL Mean Platelet Volume 9.6 7.4-10.4 fL Sodium Level 133 136-145 mmol/L Potassium Level 3.9 3.5-5.1 mmol/L Chloride Level 102 98-107 mmol/L Carbon Dioxide Level 27 21-32 mmol/L Anion Gap 4.0 3-11 mmol/L Blood Urea Nitrogen 13 7-18 mg/dl Creatinine 0.94 0.60-1.40 mg/dl Est Creatinine Clear Calc Drug Dose 70.0 ml/min Estimated GFR () 92.9 Estimated GFR (Non- 80.1 BUN/Creatinine Ratio 14.1 10-20 Random Glucose 118 70-99 mg/dl Calcium Level 8.0 8.5-10.1 mg/dl Assessment & Plan continue treatment, repeat labs in am, will F/U
[2017-12-20 23:00] VITALS: BP 112/70; PULSE 91; TEMP 37.6; O2SAT 94
[2017-12-21] MEDS: D5W AND 1/2NSS + 20MEQ KCL 1,000 ML IV SCH ×2 (03:12→18:35)
[2017-12-21] MEDS ORDERED: NURSING DECISION MEDICATION ORDER SCH (05:00)
[2017-12-21] MEDS: METRONIDAZOLE / NSS 500 MG in PREMIXED NSS 100 ML IV SCH ×3 (06:29→22:45)
[2017-12-21 07:07] VITALS: BP 134/76; PULSE 81; TEMP 37; O2SAT 96
[2017-12-21 07:58] LABS: BASO % 0.1 %; BASO ABS # 0.01 K/uL (0-0.2); EOS % 0.8 %; EOS ABS # 0.07 K/uL (0-0.5); HEMOGLOBIN 11.5 g/dL (14.0-18.0); IG# 0.01 K/uL (0.00-0.02); LYMPH % 9.3 %; LYMPH ABS # 0.77 K/uL (1.2-3.4); MEAN CELL VOLUME 88.8 fL (80-100); MEAN CORPUSCULAR HGB CONC 33.8 g/dl (32-36); MEAN PLATELET VOLUME 10.1 fL (7.4-10.4); MONO % 8.4 %; MONO ABS # 0.69 K/uL (0.11-0.59); NEUT % 81.3 %; NEUT ABS # 6.69 K/uL (1.4-6.5); PLATELET COUNT 177 K/uL (130-400); RED CELL DISTRIBUTION WIDTH CV 13.7 % (11.5-14.5); RED CELL DISTRIBUTION WIDTH SD 44.8 fL (36.4-46.3); WHITE BLOOD COUNT 8.24 K/uL (4.8-10.8)
[2017-12-21 08:24] LABS: ALBUMIN 2.5 gm/dl (3.4-5.0); CALCIUM 8.1 mg/dl (8.5-10.1); CREATININE 0.9 mg/dl (0.60-1.40); POTASSIUM 3.7 mmol/L (3.5-5.1)
[2017-12-21 08:27] LABS: TOTAL PROTEIN 6.3 gm/dl (6.4-8.2)
[2017-12-21] MEDS: CIPROFLOXACIN / D5W 400 MG in PREMIXED IN D5W 200 ML IV SCH ×2 (08:57→20:32)
[2017-12-21] MEDS: LISINOPRIL 10 MG TAB NG SCH (08:57)
[2017-12-21] MEDS: ATORVASTATIN 10 MG TAB NG SCH (08:57)
--- NOTE | 2017-12-21 09:50 | Surgery Progress Note ---
Surgery Progress Note Date of Service Dec 21, 2017. 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) + feeling well, + ambulating, + bowel movement (small amount of liquid stool in ostomy), + pain controlled, No complaints, No chest pain, No SOB, No nausea, No vomiting Objective Vital Signs: Date Time Temp Pulse Resp B/P (MAP) Pulse Ox O2 Delivery O2 Flow Rate FiO2 12/21/17 07:20 Room Air 12/21/17 07:07 37.0 81 18 134/76 (95) 96 Room Air 12/20/17 23:30 Room Air 12/20/17 23:00 37.6 91 16 112/70 (84) 94 Room Air 12/20/17 16:00 94 Room Air 12/20/17 14:58 37.7 95 18 124/72 (89) 94 Room Air Physical Exam: MYRA drainage (bloody serosanguienous) General Appearance: WD/WN, no apparent distress Head: normocephalic, atraumatic Neck: trachea midline Respiratory/Chest: no respiratory distress, no accessory muscle use Abdomen: non distended, soft, no organomegaly, no pulsatile mass, + tenderness (right lower quadrant and midline incision), + pertinent finding (ostomy: pink and liquid stool present) Incision(s): clean, dry, intact, no erythema, no drainage Laboratory Results: Results Past 24 Hours Test 12/21/17 07:30 Range/Units White Blood Count 8.24 4.8-10.8 K/uL Red Blood Count 3.83 4.7-6.1 M/uL Hemoglobin 11.5 14.0-18.0 g/dL Hematocrit 34.0 42-52 % Mean Corpuscular Volume 88.8 80-100 fL Mean Corpuscular Hemoglobin 30.0 25-34 pg Mean Corpuscular Hemoglobin Concent 33.8 32-36 g/dl Platelet Count 177 130-400 K/uL Mean Platelet Volume 10.1 7.4-10.4 fL Neutrophils (%) (Auto) 81.3 % Lymphocytes (%) (Auto) 9.3 % Monocytes (%) (Auto) 8.4 % Eosinophils (%) (Auto) 0.8 % Basophils (%) (Auto) 0.1 % Neutrophils # (Auto) 6.69 1.4-6.5 K/uL Lymphocytes # (Auto) 0.77 1.2-3.4 K/uL Monocytes # (Auto) 0.69 0.11-0.59 K/uL Eosinophils # (Auto) 0.07 0-0.5 K/uL Basophils # (Auto) 0.01 0-0.2 K/uL RDW Standard Deviation 44.8 36.4-46.3 fL RDW Coefficient of Variation 13.7 11.5-14.5 % Immature Granulocyte % (Auto) 0.1 % Immature Granulocyte # (Auto) 0.01 0.00-0.02 K/uL Sodium Level 134 136-145 mmol/L Potassium Level 3.7 3.5-5.1 mmol/L Chloride Level 101 98-107 mmol/L Carbon Dioxide Level 29 21-32 mmol/L Anion Gap 4.0 3-11 mmol/L Blood Urea Nitrogen 13 7-18 mg/dl Creatinine 0.90 0.60-1.40 mg/dl Est Creatinine Clear Calc Drug Dose 73.1 ml/min Estimated GFR () 97.9 Estimated GFR (Non- 84.4 BUN/Creatinine Ratio 14.5 10-20 Random Glucose 110 70-99 mg/dl Calcium Level 8.1 8.5-10.1 mg/dl Total Bilirubin 0.7 0.2-1 mg/dl Aspartate Amino Transf (AST/SGOT) 22 15-37 U/L Alanine Aminotransferase (ALT/SGPT) 19 12-78 U/L Alkaline Phosphatase 63 45-117 U/L Total Protein 6.3 6.4-8.2 gm/dl Albumin 2.5 3.4-5.0 gm/dl Globulin 3.8 2.5-4.0 gm/dl Albumin/Globulin Ratio 0.7 0.9-2 Assessment & Plan POD # 2 s/p ex lap, sigmoid resection with end Colostomy -vitals stable -afebrile last shift - minimal pain ,controlled - ostomy pink, mild edema, liquid stool output, now with some soft stool present on reexamination with DR. Escalante - myra drain with bloody serosanguineous output, H&H stable - Leukocytosis resolved - adequate urine output - Culture showing + E. Coli Plan: Continue current pain management, will add po percocet prn D/C NGT Continue IV Fluids Start clear liquids, advised to take it slow Continue myra drain to bulb suction OOB to chair and ambulation with assistance Continue IV Antibiotics, appreciate ID recs repeat am labs Dressing change tomorrow am and daily Continue SCDs and incentive spirometry Add Iv Protonix daily Dr. Escalante has seen and examined patient, agrees with above
[2017-12-21] MEDS ORDERED: OXYCODONE/ACETAMINOPHEN 5-325 TAB PO PRN ×2 (10:45)
[2017-12-21] MEDS: PANTOprazole INJ 40 MG in SYRINGE 0 ML IV SCH (11:09)
--- NOTE | 2017-12-21 15:16 | Progress Note ---
Subjective Date of Service: Dec 21, 2017. Subjective Pt evaluation today including: conversation w/ patient, physical exam, chart review, lab review pt seen in followup, feeling much better today, ngt out, eating clears, tolerating. well controlled pain, no f/c. remains on cipro and gill IV tolerating well. no n/v. Culture with pansensitive E. coli and bacteroides. all remaining ros reviewed and are negative. Problem List Medical Problems: (1) Diverticulitis of intestine with perforation Status: Acute Objective Vital Signs Date Time Temp Pulse Resp B/P (MAP) Pulse Ox O2 Delivery O2 Flow Rate FiO2 12/21/17 07:20 Room Air 12/21/17 07:07 37.0 81 18 134/76 (95) 96 Room Air 12/20/17 23:30 Room Air 12/20/17 23:00 37.6 91 16 112/70 (84) 94 Room Air 12/20/17 16:00 94 Room Air Physical Exam General Appearance: WD/WN, no apparent distress Eyes: normal inspection, EOMI Neck: supple Respiratory/Chest: lungs clear, normal breath sounds, no respiratory distress, + decreased breath sounds Cardiovascular: regular rate, rhythm, no edema Abdomen: non tender, soft, + pertinent finding (ostomy pink, myra drain in place) Extremities: non-tender, no pedal edema Neurologic/Psychiatric: alert, oriented x 3 Skin: normal color Laboratory Results Item Value Date Time Gram Stain - Final Resulted 12/19/17 0244 Peritoneal Fluid Last 24 Hours Test 12/21/17 07:30 White Blood Count 8.24 K/uL Red Blood Count 3.83 M/uL Hemoglobin 11.5 g/dL Hematocrit 34.0 % Mean Corpuscular Volume 88.8 fL Mean Corpuscular Hemoglobin 30.0 pg Mean Corpuscular Hemoglobin Concent 33.8 g/dl Platelet Count 177 K/uL Mean Platelet Volume 10.1 fL Neutrophils (%) (Auto) 81.3 % Lymphocytes (%) (Auto) 9.3 % Monocytes (%) (Auto) 8.4 % Eosinophils (%) (Auto) 0.8 % Basophils (%) (Auto) 0.1 % Neutrophils # (Auto) 6.69 K/uL Lymphocytes # (Auto) 0.77 K/uL Monocytes # (Auto) 0.69 K/uL Eosinophils # (Auto) 0.07 K/uL Basophils # (Auto) 0.01 K/uL RDW Standard Deviation 44.8 fL RDW Coefficient of Variation 13.7 % Immature Granulocyte % (Auto) 0.1 % Immature Granulocyte # (Auto) 0.01 K/uL Sodium Level 134 mmol/L Potassium Level 3.7 mmol/L Chloride Level 101 mmol/L Carbon Dioxide Level 29 mmol/L Anion Gap 4.0 mmol/L Blood Urea Nitrogen 13 mg/dl Creatinine 0.90 mg/dl Est Creatinine Clear Calc Drug Dose 73.1 ml/min Estimated GFR () 97.9 Estimated GFR (Non- 84.4 BUN/Creatinine Ratio 14.5 Random Glucose 110 mg/dl Calcium Level 8.1 mg/dl Total Bilirubin 0.7 mg/dl Aspartate Amino Transf (AST/SGOT) 22 U/L Alanine Aminotransferase (ALT/SGPT) 19 U/L Alkaline Phosphatase 63 U/L Total Protein 6.3 gm/dl Albumin 2.5 gm/dl Globulin 3.8 gm/dl Albumin/Globulin Ratio 0.7 Assessment and Plan (1) Peritonitis (acute) generalized Assessment & Plan: continue cipro and gill for now, when able to tolerated po can change to augmentin 875mg po bid. will need 14 days. will continue to follow.
[2017-12-21 15:26] VITALS: BP 142/81; PULSE 80; TEMP 37.2; O2SAT 95
[2017-12-21 23:07] VITALS: BP 136/72; PULSE 76; TEMP 37; O2SAT 98
[2017-12-22] MEDS: D5W AND 1/2NSS + 20MEQ KCL 1,000 ML IV SCH ×2 (07:42→19:00)
[2017-12-22 07:57] VITALS: BP 138/78; PULSE 64; TEMP 36.3; O2SAT 96
[2017-12-22 08:03] LABS: CREATININE 0.78 mg/dl (0.60-1.40)
[2017-12-22 08:20] LABS: HEMATOCRIT 32.3 % (42-52); HEMOGLOBIN 11.1 g/dL (14.0-18.0); MEAN CELL VOLUME 88.3 fL (80-100); MEAN CORPUSCULAR HEMOGLOBIN 30.3 pg (25-34); MEAN CORPUSCULAR HGB CONC 34.4 g/dl (32-36); MEAN PLATELET VOLUME 9.7 fL (7.4-10.4); PLATELET COUNT 221 K/uL (130-400); RED CELL DISTRIBUTION WIDTH CV 13.6 % (11.5-14.5); RED CELL DISTRIBUTION WIDTH SD 44.1 fL (36.4-46.3); WHITE BLOOD COUNT 7.09 K/uL (4.8-10.8)
[2017-12-22 08:28] LABS: CALCIUM 7.9 mg/dl (8.5-10.1); CREATININE 0.82 mg/dl (0.60-1.40); POTASSIUM 3.5 mmol/L (3.5-5.1)
[2017-12-22] MEDS: LISINOPRIL 10 MG TAB NG SCH (09:18)
[2017-12-22] MEDS: ATORVASTATIN 10 MG TAB NG SCH (09:18)
[2017-12-22] MEDS: PANTOprazole INJ 40 MG in SYRINGE 0 ML IV SCH (09:19)
[2017-12-22] MEDS ORDERED: POTASSIUM CHLORIDE 10 MEQ TABCR PO STA (10:43)
--- NOTE | 2017-12-22 11:15 | Surgery Progress Note ---
Surgery Progress Note Date of Service Dec 22, 2017. Subjective Post OP Day: 2 + feeling well pt is doing better, less abdominal pain, no nausea, no vomiting, colostomy is working, the pathology report is reviewed with pt. DEBRA 290ml Objective Vital Signs: Date Time Temp Pulse Resp B/P (MAP) Pulse Ox O2 Delivery O2 Flow Rate FiO2 12/22/17 07:57 36.3 64 14 138/78 (98) 96 Room Air 12/22/17 07:40 Room Air 12/21/17 23:40 Room Air 12/21/17 23:07 37.0 76 18 136/72 (93) 98 Room Air 12/21/17 16:30 Room Air 12/21/17 15:26 37.2 80 16 142/81 (101) 95 Room Air General Appearance: WD/WN, no apparent distress Head: normocephalic Neck: supple, no JVD Respiratory/Chest: chest non-tender Cardiovascular: regular rate, rhythm, no edema, no gallop, no JVD, no murmur Abdomen: normal bowel sounds, non tender, non distended, soft, no organomegaly Incision(s): clean, dry, intact Extremities: normal range of motion, non-tender, normal inspection Laboratory Results: Results Past 24 Hours Test 12/22/17 07:09 Range/Units White Blood Count 7.09 4.8-10.8 K/uL Red Blood Count 3.66 4.7-6.1 M/uL Hemoglobin 11.1 14.0-18.0 g/dL Hematocrit 32.3 42-52 % Mean Corpuscular Volume 88.3 80-100 fL Mean Corpuscular Hemoglobin 30.3 25-34 pg Mean Corpuscular Hemoglobin Concent 34.4 32-36 g/dl RDW Standard Deviation 44.1 36.4-46.3 fL RDW Coefficient of Variation 13.6 11.5-14.5 % Platelet Count 221 130-400 K/uL Mean Platelet Volume 9.7 7.4-10.4 fL Sodium Level 134 136-145 mmol/L Potassium Level 3.5 3.5-5.1 mmol/L Chloride Level 103 98-107 mmol/L Carbon Dioxide Level 26 21-32 mmol/L Anion Gap 5.0 3-11 mmol/L Blood Urea Nitrogen 9 7-18 mg/dl Creatinine 0.82 0.60-1.40 mg/dl Est Creatinine Clear Calc Drug Dose 80.3 ml/min Estimated GFR () 101.7 Estimated GFR (Non- 87.7 BUN/Creatinine Ratio 10.6 10-20 Random Glucose 108 70-99 mg/dl Calcium Level 7.9 8.5-10.1 mg/dl Assessment & Plan continue treatment, repeat labs in am, will F/U 12/22/17 soft diet, monitor DEBRA output will F/U continue treatment, repeat labs in am, will F/U
--- NOTE | 2017-12-22 11:21 | Progress Note ---
Subjective Date of Service: Dec 22, 2017. Subjective Pt evaluation today including: conversation w/ patient, physical exam, chart review, lab review pt continues to improve. remains on clears but tolerating well. remains on abx but reached stop date. afebrile. wbc improving. OR culture with E. coli and B. frag. tolerating abx. no pain, ostomy functioning. all remaining ros reviewed and are negative. Problem List Medical Problems: (1) Diverticulitis of intestine with perforation Status: Acute Objective Vital Signs Date Time Temp Pulse Resp B/P (MAP) Pulse Ox O2 Delivery O2 Flow Rate FiO2 12/22/17 07:57 36.3 64 14 138/78 (98) 96 Room Air 12/22/17 07:40 Room Air 12/21/17 23:40 Room Air 12/21/17 23:07 37.0 76 18 136/72 (93) 98 Room Air 12/21/17 16:30 Room Air 12/21/17 15:26 37.2 80 16 142/81 (101) 95 Room Air Physical Exam General Appearance: WD/WN, no apparent distress Eyes: normal inspection, EOMI Neck: supple Respiratory/Chest: lungs clear, normal breath sounds, no respiratory distress Cardiovascular: regular rate, rhythm, no edema Abdomen: soft, + pertinent finding (ostomy functioning) Extremities: non-tender, no pedal edema Neurologic/Psychiatric: alert, oriented x 3 Skin: normal color Laboratory Results Item Value Date Time Gram Stain - Final Resulted 12/19/17 0244 Peritoneal Fluid Last 24 Hours Test 12/22/17 07:09 White Blood Count 7.09 K/uL Red Blood Count 3.66 M/uL Hemoglobin 11.1 g/dL Hematocrit 32.3 % Mean Corpuscular Volume 88.3 fL Mean Corpuscular Hemoglobin 30.3 pg Mean Corpuscular Hemoglobin Concent 34.4 g/dl RDW Standard Deviation 44.1 fL RDW Coefficient of Variation 13.6 % Platelet Count 221 K/uL Mean Platelet Volume 9.7 fL Sodium Level 134 mmol/L Potassium Level 3.5 mmol/L Chloride Level 103 mmol/L Carbon Dioxide Level 26 mmol/L Anion Gap 5.0 mmol/L Blood Urea Nitrogen 9 mg/dl Creatinine 0.82 mg/dl Est Creatinine Clear Calc Drug Dose 80.3 ml/min Estimated GFR () 101.7 Estimated GFR (Non- 87.7 BUN/Creatinine Ratio 10.6 Random Glucose 108 mg/dl Calcium Level 7.9 mg/dl Assessment and Plan (1) Peritonitis (acute) generalized Assessment & Plan: continue cipro and gill for now, when able to tolerated po can change to augmentin 875mg po bid. will need 14 days post op, will continue IV abx for now while on clears
[2017-12-22] MEDS: AMPICILLIN/SULBACTAM SOD INJ 3,000 MG in SODIUM CHLORIDE 0.9% 100ML 100 ML IV SCH ×3 (12:09→23:41)
[2017-12-22 14:57] VITALS: BP 134/73; PULSE 76; TEMP 36.9; O2SAT 95
[2017-12-22 22:55] VITALS: BP 138/80; PULSE 71; TEMP 36.8; O2SAT 96
[2017-12-23] MEDS: D5W AND 1/2NSS + 20MEQ KCL 1,000 ML IV SCH ×2 (05:14→15:50)
[2017-12-23] MEDS: AMPICILLIN/SULBACTAM SOD INJ 3,000 MG in SODIUM CHLORIDE 0.9% 100ML 100 ML IV SCH ×4 (05:44→23:41)
[2017-12-23 07:49] VITALS: BP 120/78; PULSE 74; TEMP 36.8; O2SAT 96
[2017-12-23 08:46] LABS: HEMATOCRIT 33.7 % (42-52); HEMOGLOBIN 11.5 g/dL (14.0-18.0); MEAN CELL VOLUME 88.9 fL (80-100); MEAN CORPUSCULAR HEMOGLOBIN 30.3 pg (25-34); MEAN CORPUSCULAR HGB CONC 34.1 g/dl (32-36); MEAN PLATELET VOLUME 9.4 fL (7.4-10.4); PLATELET COUNT 251 K/uL (130-400); RED CELL DISTRIBUTION WIDTH CV 13.8 % (11.5-14.5); WHITE BLOOD COUNT 8.04 K/uL (4.8-10.8)
[2017-12-23] MEDS: ATORVASTATIN 10 MG TAB NG SCH (08:58)
[2017-12-23] MEDS: LISINOPRIL 10 MG TAB NG SCH (08:58)
[2017-12-23 09:21] LABS: CALCIUM 8.1 mg/dl (8.5-10.1); CREATININE 0.81 mg/dl (0.60-1.40); POTASSIUM 3.7 mmol/L (3.5-5.1)
--- NOTE | 2017-12-23 11:29 | Surgery Progress Note ---
Surgery Progress Note Date of Service Dec 23, 2017. Subjective Post OP Day: 3 + feeling well pt is doing fine, no abdominal pain, colostomy nurse is teaching pt how change colostomy bag, pt denies nausea, no vomiting, Objective Vital Signs: Date Time Temp Pulse Resp B/P (MAP) Pulse Ox O2 Delivery O2 Flow Rate FiO2 12/23/17 07:50 Room Air 12/23/17 07:49 36.8 74 14 120/78 (92) 96 Room Air 12/22/17 23:35 Room Air 12/22/17 22:55 36.8 71 16 138/80 (99) 96 Room Air 12/22/17 15:50 Room Air 12/22/17 14:57 36.9 76 20 134/73 (93) 95 Room Air General Appearance: WD/WN, no apparent distress Head: normocephalic Neck: supple, no JVD Respiratory/Chest: chest non-tender, lungs clear Cardiovascular: regular rate, rhythm, no edema, no gallop, no JVD, no murmur Abdomen: normal bowel sounds, non tender, non distended, soft Incision(s): clean, dry, intact Extremities: normal range of motion, non-tender, normal inspection Laboratory Results: Results Past 24 Hours Test 12/23/17 08:18 Range/Units White Blood Count 8.04 4.8-10.8 K/uL Red Blood Count 3.79 4.7-6.1 M/uL Hemoglobin 11.5 14.0-18.0 g/dL Hematocrit 33.7 42-52 % Mean Corpuscular Volume 88.9 80-100 fL Mean Corpuscular Hemoglobin 30.3 25-34 pg Mean Corpuscular Hemoglobin Concent 34.1 32-36 g/dl RDW Standard Deviation 45.0 36.4-46.3 fL RDW Coefficient of Variation 13.8 11.5-14.5 % Platelet Count 251 130-400 K/uL Mean Platelet Volume 9.4 7.4-10.4 fL Sodium Level 138 136-145 mmol/L Potassium Level 3.7 3.5-5.1 mmol/L Chloride Level 106 98-107 mmol/L Carbon Dioxide Level 24 21-32 mmol/L Anion Gap 7.0 3-11 mmol/L Blood Urea Nitrogen 8 7-18 mg/dl Creatinine 0.81 0.60-1.40 mg/dl Est Creatinine Clear Calc Drug Dose 81.3 ml/min Estimated GFR () 102.2 Estimated GFR (Non- 88.2 BUN/Creatinine Ratio 9.8 10-20 Random Glucose 101 70-99 mg/dl Calcium Level 8.1 8.5-10.1 mg/dl Assessment & Plan continue treatment, repeat labs in am, will F/U 12/22/17 soft diet, monitor DEBRA output will F/U 12/23/17 doing fine, possible D/C home tomorrow, I agree with ID treatment plan, regular diet continue treatment, repeat labs in am, will F/U 12/22/17 soft diet, monitor DEBRA output will F/U
--- NOTE | 2017-12-23 14:17 | Progress Note ---
Subjective Date of Service: Dec 23, 2017. Subjective Pt evaluation today including: conversation w/ patient, physical exam, chart review, lab review pt seen in followup,feeling well. eating regular diet, tolerating well. pain well controlled. no f/c. tolerating unasyn. wbc nml. all remaining ros reviewed and are negative. Problem List Medical Problems: (1) Diverticulitis of intestine with perforation Status: Acute Objective Vital Signs Date Time Temp Pulse Resp B/P (MAP) Pulse Ox O2 Delivery O2 Flow Rate FiO2 12/23/17 07:50 Room Air 12/23/17 07:49 36.8 74 14 120/78 (92) 96 Room Air 12/22/17 23:35 Room Air 12/22/17 22:55 36.8 71 16 138/80 (99) 96 Room Air 12/22/17 15:50 Room Air 12/22/17 14:57 36.9 76 20 134/73 (93) 95 Room Air Physical Exam General Appearance: WD/WN, no apparent distress Eyes: normal inspection, EOMI Neck: supple Respiratory/Chest: lungs clear, normal breath sounds, no respiratory distress Cardiovascular: regular rate, rhythm, no edema Abdomen: non tender, soft, + pertinent finding (ostomy intact, myra drain with min sersang drainage) Extremities: non-tender, no pedal edema Neurologic/Psychiatric: alert, oriented x 3 Skin: normal color Laboratory Results Item Value Date Time Gram Stain - Final Resulted 12/19/17 0244 Peritoneal Fluid Gram Stain - Final Resulted 12/19/17 0244 Peritoneal Fluid Last 24 Hours Test 12/23/17 08:18 White Blood Count 8.04 K/uL Red Blood Count 3.79 M/uL Hemoglobin 11.5 g/dL Hematocrit 33.7 % Mean Corpuscular Volume 88.9 fL Mean Corpuscular Hemoglobin 30.3 pg Mean Corpuscular Hemoglobin Concent 34.1 g/dl RDW Standard Deviation 45.0 fL RDW Coefficient of Variation 13.8 % Platelet Count 251 K/uL Mean Platelet Volume 9.4 fL Sodium Level 138 mmol/L Potassium Level 3.7 mmol/L Chloride Level 106 mmol/L Carbon Dioxide Level 24 mmol/L Anion Gap 7.0 mmol/L Blood Urea Nitrogen 8 mg/dl Creatinine 0.81 mg/dl Est Creatinine Clear Calc Drug Dose 81.3 ml/min Estimated GFR () 102.2 Estimated GFR (Non- 88.2 BUN/Creatinine Ratio 9.8 Random Glucose 101 mg/dl Calcium Level 8.1 mg/dl Assessment and Plan (1) Peritonitis (acute) generalized Assessment & Plan: continue unasyn can change to augmentin 875mg po bid upon d.c. will need 14 days post op, will continue IV abx for now for d/c in am.
[2017-12-23 15:10] VITALS: BP 160/89; PULSE 75; TEMP 36.8; O2SAT 96
[2017-12-23 20:03] VITALS: BP 149/63; PULSE 77; O2SAT 97
[2017-12-23 23:20] VITALS: BP 158/82; PULSE 72; TEMP 36.9; O2SAT 97
[2017-12-24] MEDS: D5W AND 1/2NSS + 20MEQ KCL 1,000 ML IV SCH (04:01)
[2017-12-24] MEDS: AMPICILLIN/SULBACTAM SOD INJ 3,000 MG in SODIUM CHLORIDE 0.9% 100ML 100 ML IV SCH (05:48)
[2017-12-24 07:26] VITALS: BP 156/76; PULSE 70; TEMP 36.8; O2SAT 93
[2017-12-24] MEDS ORDERED: OXYC-57 PO (08:22)
[2017-12-24] MEDS ORDERED: AMOX875T PO (08:23)
--- NOTE | 2017-12-24 08:24 | Discharge Instructions ---
Discharge Instructions Date of Service Dec 24, 2017. Admission Reason for Admission: Acute Sigmoid Diverticulitis W Perforation, Perito Discharge Discharge Diagnosis / Problem: same Discharge Goals Goal(s): Decrease discomfort, Improve function Activity Recommendations Activity Limitations: per Instructions/Follow-up section No heavy lifting over 10 pounds for 6 weeks No strenuous activity until cleared by surgeon No submerging incision underwater for 2 weeks (no bathing, swimming, or hot tubs ) No driving for 1 week. [address] driving while taking narcotic pain medication or until you are pain free . Instructions / Follow-Up Instructions / Follow-Up You may shower when you get home. Let water hit your back and wash hair. Sponge bath abdomen while drain is in place. Gently clean incision with soap and water Home health will be helping with ostomy care. Light activity and walking is encouraged to prevent blood clots from forming in your legs You will be given narcotic pain medication as needed for moderate to severe pain. This medication may make you drowsy. Medication may cause constipation. May take extra strength Tylenol or Ibuprofen as needed for mild pain Record drain output and color daily Follow-up in surgical office on Wednesday with Dr. Escalante, please call office at to make an appointment. Take antibiotics as directed with food. Take one pill tonight and then twice a day for 9 days. Current Hospital Diet Patient's current hospital diet: Low Fiber Diet Discharge Diet Recommended Diet: Low Fiber Diet Procedures Procedures Performed: Sigmoid Colon Resection with Placement of a Stoma; Appendectomy Pending Studies Studies pending at discharge: no Medical Emergencies . Who to Call and When: Medical Emergencies: If at any time you feel your situation is an emergency, please call 911 immediately. . Non-Emergent Contact Non-Emergency issues call your: Primary Care Provider, Surgeon Call Non-Emergent contact if: you have a fever, temperature is above 101, your pain is not controlled, your pain is worsening, your pain is unusual for you, wound has increased drainage, wound has increased redness, wound has increased pain . "Provider Documentation" section prepared by Kareen Rodriguez. . [place] Drug Monitoring Program Search Results: patient reviewed within database, no issues identified
[2017-12-24] MEDS: LISINOPRIL 10 MG TAB NG SCH (08:47)
[2017-12-24] MEDS: PANTOprazole INJ 40 MG in SYRINGE 0 ML IV SCH (08:47)
[2017-12-24] MEDS: ATORVASTATIN 10 MG TAB NG SCH (08:47)
--- NOTE | 2017-12-24 09:27 | Surgery Progress Note ---
Surgery Progress Note Date of Service Dec 24, 2017. Subjective Post OP Day: 5 (s/p ex lap, sigmoid resection with Eaton's pouch and end colostomy) + feeling well, + ambulating, + bowel movement, + flatus, + pain controlled, + diet (low fiber diet), No complaints, No chest pain, No SOB, No nausea, No vomiting Objective Vital Signs: Date Time Temp Pulse Resp B/P (MAP) Pulse Ox O2 Delivery O2 Flow Rate FiO2 12/24/17 08:21 Room Air 12/24/17 07:26 36.8 70 18 156/76 (102) 93 Room Air 12/23/17 23:28 Room Air 12/23/17 23:20 36.9 72 16 158/82 (107) 97 Room Air 12/23/17 20:03 77 149/63 (91) 97 Room Air 12/23/17 16:00 Room Air 12/23/17 15:10 36.8 75 14 160/89 (112) 96 Room Air Physical Exam: MYRA drainage (serosanguienous with bloody output) General Appearance: WD/WN, no apparent distress Head: normocephalic, atraumatic Neck: trachea midline Respiratory/Chest: no respiratory distress, no accessory muscle use Abdomen: non tender, non distended, soft, no organomegaly, + pertinent finding (ostomy present left abdomen: ostomy pink with soft stool and gas present) Incision(s): clean, dry, intact, no erythema, no drainage, findings (kaelyn intact) Assessment & Plan POD # 5 s/p ex lap, sigmoid resection with end Colostomy -vitals stable - minimal pain ,controlled - ostomy pink, functioning with soft stool and gas output - myra drain with bloody serosanguineous output, H&H stable - Leukocytosis resolved - adequate urine output - Culture showing + E. Coli Plan: D/C home today D/c home with PO Percocet prn pain and 9 days of PO Augmentin for total 14 day course of antibiotics post op Home health has been set up for ostomy care MYRA drain teaching prior to discharge Discharge instructions reviewed f/u office on Wednesday with Dr. Escalante, number given Dr. Escalante has seen and examined patient, agrees with above
[2017-12-24 10:59] VITALS: BP 156/76; PULSE 70; TEMP 36.8; O2SAT 93
--- NOTE | 2017-12-28 11:14 | Discharge Summary ---
Discharge Summary Dates Admission Date / Time: Dec 19, 2017 at 04:41 Discharge Date: Dec 24, 2017 Dispostion / Condition Discharge Disposition: Home with services Condition at Discharge: Good Principal Diagnosis (1) acute sigmoid diverticulitis with perforation Problem List (1) Right clavicle fracture (2) Fall Consultations / Procedures Consultations: Hospitalist Procedures: Exploratory laparotomy, sigmoid resection, Eaton's procedure with end colostomy, appendectomy Vaccinations: None Pending Studies / Follow-Up None Medication Reconciliation New Medications: Amoxicillin & Pot Clavulanate (Augmentin 875-125 mg) 1 Tab Tab 1 TAB PO BID for 10 Days, #20 TAB Oxycodone/Acetaminophen 5MG/325MG (Percocet 5MG/325MG) Tab 1-2 TABLETS PO Q4H PRN for Pain, #30 TAB Continued Medications: Ascorbic Acid (Vitamin C) 500 Mg Tab 500 MG PO BID Atorvastatin (Lipitor) 10 Mg Tab 10 MG PO DAILY AT NOON, TAB Calcium Carbonate-Vitamin D (Calcium + D) 1 Tab Tab 1 TAB PO BID Fish Oil ([place]-3) 1 Ea Cap 1 CAP PO QAM, CAP Lisinopril (Prinivil) 10 Mg Tab 10 MG PO DAILY AT NOON, TAB Multiple Vitamin (Multivitamin) 1 Tab Tab 1 TAB PO NOON, TAB Admission HPI Per the Admitting provider: pt is a 72 year old male who presents to ER with one day history diarrhea and lower abdominal pain with fever, T 101, pt started diarrhea in the morning yesterday, after lunch pt developed severe lower abdominal pain with T 101, the pain is located at middle lower abdomen, pt denies chest pain, no nausea, no vomiting, no bloody stool, no blood in urine, pt had prostatectomy in 2012 for prostate cancer, pt's last colonoscopy was done last year which was normal finding, Hospital Course (1) acute sigmoid diverticulitis with perforation Param presented to the emergency room on 12/19/2017 with diarrhea, abdominal pain elevated temperature at 101. Patient had a CT scan in the emergency room with diagnosis of pneumoperitoneum, acute sigmoid colon diverticulitis with perforation. Patient was taken to the operating room for emergent exploratory laparotomy, possible bowel resection, possible ostomy. Patient was found to have some purulence in the abdominal cavity. There was a perforation of the sigmoid colon with associated acute diverticulitis of the sigmoid colon. Therefore a sigmoid resection was performed with end colostomy. Investigation of the rest of the abdomen showed a fecalith in the appendix therefore appendectomy was performed as well. Patient tolerated procedure well. Patient was transferred to recovery in stable condition condition and then to the medical/surgical floor for postoperative care. Patient was kept n.p.o., NG tube to low intermittent suction, IV fluids, IV pain medication in the form of Dilaudid, IV Zofran as needed for nausea, IV antibiotics, activity as tolerated , Lovenox and SCDs for DVT prophylaxis, Charles cath to gravity, and hospitalist was consulted for comanagement postop. Patient was evaluated in the morning of postop day #0. Vital signs stable patient was afebrile. Moderate pain which was controlled. Ostomy was pink with mild edema and no output. DEBRA drain with bloody serosanguineous output H&H stable. Slight increase in leukocytosis of 13 ,000. NG tube was continued to low intermittent suction. Charles catheter was discontinued. IV antibiotics were continued and infectious disease consult was placed. Postop day #1. Patient was febrile throughout the night T-max of 37.9. Lower culture still pending. Pain controlled no changes. Postop day #2 leukocytosis resolved, afebrile last shift. Ostomy pink and now soft stool present. Pain minimal and controlled. Culture showing E. coli. Infectious disease recommended continuing Cipro and Flagyl until tolerating p.o. well and can change to Augmentin 875 mg p.o. twice daily. Need a total of 14 days postop. NG tube was discontinued and started on clear liquids. IV Protonix was added daily. Postop day #3 patient's diet was advanced to soft diet. DEBRA drain was continued. Postop day #4 patient's diet was continued soft diet. No significant changes. Postop day #5 patient was stable, afebrile, ostomy functioning, H&H stable, leukocytosis resolved. Patient was discharged home on postop day #5 in stable condition he was given prescriptions for p.o. Percocet as needed for pain and p.o. Augmentin 875 mg p.o. twice daily for a total of 9 more days for total of 14 days postop. He was discharged home with a DEBRA drain and follow-up in the office on 12/27/2017. Overall hospital course was uneventful Discharge Instructions as given to patient Copies To Primary Care Provider: Edmond Estrada M.D..
--- NOTE | 2017-12-29 06:47 | EDITING REQUIRED CODING QUERY ---
CODING QUERY To promote full compliance with coding requirements relating to patient care, provider participation is requested in all cases of practical nurse uncertainty. Please assist us with the question(s) below: Coding Question(s): Discharge Summary mentions Clavicular fracture due to Fall. Please check the following pertaining to the fracture. Thank you. - MANAV Brewer [facility] Physician's Response(s): The Clavicle fracture was present on admission The Clavicle fracture was not present on admission Unable to clinically correlate if the Clavicle fracture was present on admission Other/ Please document: Principal Diagnosis: "_that condition established after study, to be chiefly responsible for occasioning the admission of the patient to the hospital for care." Co-Existing Principal Diagnosis: "_when two or more diagnoses equally meet the criteria for principal diagnosis as determined by the circumstances of admission, diagnostic work up, and/or therapy provided, and the Alphabetic Index, Tabular List, or another coding guideline does not provide sequencing direction, any one of the diagnoses may be sequenced first." "When the physician has documented what appears to be a current diagnosis in the body of the record, but has not included the diagnosis in the final diagnostic statement, the physician should be asked whether the diagnosis should be added." (Source Coding Clinic 2 QTR90. p3-4)
--- NOTE | 2017-12-31 13:43 | EDITING REQUIRED CODING QUERY ---
CODING QUERY To promote full compliance with coding requirements relating to patient care, provider participation is requested in all cases of closer on uncertainty. Please assist us with the question(s) below: Coding Question(s): The Discharge Summary mentions a Clavicular fracture due to Fall. Please check the phrase below that pertains to the Clavicular fracture. Thank you! Gagan Littlejohn [employer] [facility] Physician's Response(s): the Clavicular Fracture was prior to Admission the Clavicular Fracture was not present on Admission Unable to clinically correlate if Clavicular fracture was present on admission Other/ Please document Principal Diagnosis: "_that condition established after study, to be chiefly responsible for occasioning the admission of the patient to the hospital for care." Co-Existing Principal Diagnosis: "_when two or more diagnoses equally meet the criteria for principal diagnosis as determined by the circumstances of admission, diagnostic work up, and/or therapy provided, and the Alphabetic Index, Tabular List, or another coding guideline does not provide sequencing direction, any one of the diagnoses may be sequenced first." "When the physician has documented what appears to be a current diagnosis in the body of the record, but has not included the diagnosis in the final diagnostic statement, the physician should be asked whether the diagnosis should be added." (Source Coding Clinic 2 QTR90. p3-4)
== END 2017-12-24 11:34 | disposition home health service (06) | DRG 330 ==
LOC: C.EDB 20:43 → C.MSW 12-19 04:41 → ENRESERV 12-19 05:09 → UNDODEPER 12-19 06:28
PROVIDERS: ADMIT Surgery; ATTEND Surgery
PROC: 0DBN0ZZ Excision of Sigmoid Colon, Open Approach (ICD-10-PCS; principal; 2017-12-19 01:30)
PROC: 0DTJ0ZZ Resection of Appendix, Open Approach (ICD-10-PCS; principal; 2017-12-19 01:30)
PROC: 0D1N0Z4 Bypass Sigmoid Colon to Cutaneous, Open Approach (ICD-10-PCS; principal; 2017-12-19 01:30)
DX: K57.20 Diverticulitis of large intestine with perforation and abscess without bleeding (principal); K38.1 Appendicular concretions; Z85.46 Personal history of malignant neoplasm of prostate; B96.20 Unspecified Escherichia coli [E. coli] as the cause of diseases classified elsewhere

== ENCOUNTER 2018-01-04 22:58 | Inpatient (IN) | payer BC, OTHER ==
[~2018-01-04] VITALS: Ht 175.3 cm; Wt 69.2 kg
[~2018-01-04 22:58] MED LIST changes: +AMOX875T PO; +ATOR10TA82 PO; -FLAX1CAP11 PO; +LISI10TA PO; -LPT10 PO; +OMEG10007 PO; +OXYC-57 PO
[2018-01-04] MEDS ORDERED: ONDANSETRON INJ 2 MG/ML 2 ML VIAL IV STA (23:16)
[2018-01-04] MEDS ORDERED: SODIUM CHLORIDE 0.9% 1000ML 1,000 ML IV STA (23:16)
[2018-01-04 23:39] LABS: BASO % 0.3 %; BASO ABS # 0.03 K/uL (0-0.2); EOS % 1.5 %; EOS ABS # 0.16 K/uL (0-0.5); HEMATOCRIT 35.9 % (42-52); HEMOGLOBIN 12.6 g/dL (14.0-18.0); IG# 0.03 K/uL (0.00-0.02); LYMPH % 11.5 %; LYMPH ABS # 1.23 K/uL (1.2-3.4); MEAN CELL VOLUME 86.7 fL (80-100); MEAN CORPUSCULAR HEMOGLOBIN 30.4 pg (25-34); MEAN CORPUSCULAR HGB CONC 35.1 g/dl (32-36); MEAN PLATELET VOLUME 9.1 fL (7.4-10.4); MONO % 6.2 %; MONO ABS # 0.66 K/uL (0.11-0.59); NEUT % 80.2 %; NEUT ABS # 8.58 K/uL (1.4-6.5); PLATELET COUNT 533 K/uL (130-400); RED CELL DISTRIBUTION WIDTH CV 13.4 % (11.5-14.5); WHITE BLOOD COUNT 10.69 K/uL (4.8-10.8)
[2018-01-04] MEDS ORDERED: CALC500C70 PO (23:39)
--- NOTE | 2018-01-04 23:40 | EMERGENCY ROOM VISIT NOTE ---
History Report prepared by Oliver: Arlene Flores Under the Supervision of: Dr. Alvaro Dejesus M.D. First contact with patient: 23:06 Chief Complaint: VOMITING Stated Complaint: HAD SURGERY ON 12/19 HERE DUE TO COLON-THROWING UP History of Present Illness The patient is a 72 year old male who presents to the Emergency Room with complaints of intermittent vomiting starting today. The patient states that he had a perforated bowel on the and had surgery on it. He reports that they started him on Augmentin when he was discharged. He reports that 3-4 days after he started to get nauseous when eating, but still could eat in little amounts. He states that over the weekend he started dry heaving when eating certain things. He reports that his abdomen seems to spasm when he tries to eat. He reports that after eating he had abdominal cramping that cramped into his back. The patient reports that it feels like a band is around his stomach. He reports that it has been difficult to eat as this has gone on. He states that today he ate lunch and started to eat dinner, but vomited. He notes that eating makes the nausea worse. The patient notes that he has tried to take Pepto and Tylenol with no relief. The patient notes that he talked to his surgeon's nurse before coming in. He notes that he is still getting stool in his ostomy. The patient denies fevers, taking narcotics, leg swelling, chest pain, shortness of breath, headache, passing out, and urinary symptoms. Source of History: patient Onset: toaday Position: other (global) Quality: other (vomiting) Timing: intermittent Modifying Factors (Worsening): eating Associated Symptoms: + nausea, + abdominal pain, No fevers, No headache, No chest pain, No SOB, No urinary symptoms Note: The patient denies taking narcotics, leg swelling, and passing out. Review of Systems See HPI for pertinent positives & negatives. A total of 10 systems reviewed and were otherwise negative. Past Medical & Surgical Medical Problems: (1) Bowel obstruction (2) Inguinal hernia (3) Peritonitis (acute) generalized (4) Prostate cancer Family History Cancer Hypertension Social History Smoking Status: Never Smoker Alcohol Use: none Drug Use: none Marital Status: Housing Status: lives with significant other Occupation Status: retired Current/Historical Medications Scheduled Ascorbic Acid (Vitamin C), 500 MG PO BID Atorvastatin (Lipitor), 10 MG PO DAILY AT NOON Calcium/Vitamin D ([place] 500 Plus D), 1 TAB PO BID Fish Oil ([place]-3), 1 CAP PO QAM Lisinopril (Prinivil), 10 MG PO DAILY AT NOON Multiple Vitamin (Multivitamin), 1 TAB PO NOON Allergies Coded Allergies: No Known Allergies (Verified , 01/04/18) Physical Exam Vital Signs Date Time Temp Pulse Resp B/P (MAP) Pulse Ox O2 Delivery O2 Flow Rate FiO2 01/05/18 01:03 83 20 136/81 98 Room Air 01/04/18 23:39 79 01/04/18 23:00 36.9 100 20 132/65 97 Room Air Physical Exam GENERAL: Patient is well appearing and in mild distress. EYES: No scleral icterus, unremarkable pupils. ENT: Mucous membranes are dry, dehydrated, no nasal congestion. NECK: No masses appreciated, no meningismus, trachea is midline. RESPIRATORY: No dyspnea. Clear to auscultation and equal bilaterally. No wheeze , no rhonchi. CARDIOVASCULAR: Regular rate and rhythm. No murmurs, rubs, gallops appreciated. GASTROINTESTINAL: Abdomen is distended, mild diffuse tenderness, no peritonitis. Hyperactive bowel sounds in left and right upper quadrants. No masses appreciated. Midline surgical incision stapled with good healing. Left lower abdomen ostomy with scant stool in bag. BACK: No midline tenderness, no CVA tenderness EXTREMITIES: Normal motion all extremities, no cyanosis, no edema. NEUROLOGIC: Alert and oriented, no acute motor or sensory deficits, no focal weakness, cranial nerves grossly intact. SKIN: No rash, no jaundice, no diaphoresis. Medical Decision & Procedures ER Provider Diagnostic Interpretation: Stat Rad Radiology results and stated below per my review and radiologist interpretation: CT ABDOMEN & PELVIS With Contrast: High-grade bowel obstruction suspected. No perforation/free air. No abscess. No hydronephrosis. Exophytic renal cysts bilaterally. No free air or free fluid. Left lower quadrant ostomy as part of postsurgical changes associated with part partial colectomy. Radiologist: Helio Valladares M.D. Laboratory Results 01/04/18 23:29 Red Blood Count 4.14, Mean Corpuscular Volume 86.7, Mean Corpuscular Hemoglobin 30.4, Mean Corpuscular Hemoglobin Concent 35.1, Mean Platelet Volume 9.1, Neutrophils (%) (Auto) 80.2, Lymphocytes (%) (Auto) 11.5, Monocytes (%) (Auto) 6.2, Eosinophils (%) (Auto) 1.5, Basophils (%) (Auto) 0.3, Neutrophils # (Auto) 8.58, Lymphocytes # (Auto) 1.23, Monocytes # (Auto) 0.66, Eosinophils # (Auto) 0.16, Basophils # (Auto) 0.03 01/04/18 23:29 Test 01/04/18 23:29 01/04/18 23:30 01/04/18 23:38 01/04/18 23:50 White Blood Count 10.69 K/uL (4.8-10.8) Red Blood Count 4.14 M/uL (4.7-6.1) Hemoglobin 12.6 g/dL (14.0-18.0) Hematocrit 35.9 % (42-52) Mean Corpuscular Volume 86.7 fL (80-100) Mean Corpuscular Hemoglobin 30.4 pg (25-34) Mean Corpuscular Hemoglobin Concent 35.1 g/dl (32-36) Platelet Count 533 K/uL (130-400) Mean Platelet Volume 9.1 fL (7.4-10.4) Neutrophils (%) (Auto) 80.2 % Lymphocytes (%) (Auto) 11.5 % Monocytes (%) (Auto) 6.2 % Eosinophils (%) (Auto) 1.5 % Basophils (%) (Auto) 0.3 % Neutrophils # (Auto) 8.58 K/uL (1.4-6.5) Lymphocytes # (Auto) 1.23 K/uL (1.2-3.4) Monocytes # (Auto) 0.66 K/uL (0.11-0.59) Eosinophils # (Auto) 0.16 K/uL (0-0.5) Basophils # (Auto) 0.03 K/uL (0-0.2) RDW Standard Deviation 43.0 fL (36.4-46.3) RDW Coefficient of Variation 13.4 % (11.5-14.5) Immature Granulocyte % (Auto) 0.3 % Immature Granulocyte # (Auto) 0.03 K/uL (0.00-0.02) Est Creatinine Clear Calc Drug Dose 67.6 ml/min Estimated GFR () 89.4 Estimated GFR (Non- 77.1 BUN/Creatinine Ratio 17.0 (10-20) Calcium Level 10.2 mg/dl (8.5-10.1) Phosphorus Level 4.1 mg/dl (2.5-4.9) Magnesium Level 2.1 mg/dl (1.8-2.4) Total Bilirubin 0.6 mg/dl (0.2-1) Direct Bilirubin 0.2 mg/dl (0-0.2) Aspartate Amino Transf (AST/SGOT) 37 U/L (15-37) Alanine Aminotransferase (ALT/SGPT) 42 U/L (12-78) Alkaline Phosphatase 89 U/L (45-117) Total Protein 7.5 gm/dl (6.4-8.2) Albumin 3.3 gm/dl (3.4-5.0) Lipase 317 U/L (73-393) Prothrombin Time 10.2 SECONDS (9.0-12.0) Prothromb Time International Ratio 1.0 (0.9-1.1) Activated Partial Thromboplast Time 23.1 SECONDS (21.0-31.0) Partial Thromboplastin Ratio 0.9 Bedside Hemoglobin 12.6 g/dl (14.0-18.0) Bedside Hematocrit 37 % (42-52) Bedside Sodium 135 mEq/L (135-144) Bedside Potassium 3.8 mEq/L (3.3-5.0) Bedside Chloride 93 mEq/L (101-112) Bedside Total CO2 28 mEq/l (24-31) Anion Gap 18.0 mmol/L (16-25) Bedside Blood Urea Nitrogen 17 mg/dl (7-18) Bedside Creatinine 1.0 mg/dl (0.6-1.3) Bedside Glucose (other) 132 mg/dl (70-99) Bedside Ionized Calcium ([place]udi) 1.26 mmol/l (1.12-1.32) Urine Color YELLOW Urine Appearance TURBID (CLEAR) Urine pH 7.0 (4.5-7.5) Urine Specific [place] 1.025 (1.000-1.030) Urine Protein TRACE (NEG) Urine Glucose (UA) NEG (NEG) Urine Ketones NEG (NEG) Urine Occult Blood NEG (NEG) Urine Nitrite NEG (NEG) Urine Bilirubin NEG (NEG) Urine Urobilinogen NEG (NEG) Urine Leukocyte Esterase NEG (NEG) Urine WBC (Auto) 1-5 /hpf (0-5) Urine RBC (Auto) 0-4 /hpf (0-4) Urine Hyaline Casts (Auto) 5-10 /lpf (0-5) Urine Epithelial Cells (Auto) 20-30 /lpf (0-5) Urine Bacteria (Auto) NEG (NEG) Urine Crystals AMORPHOUS SEDIMENT (NONE Urine Pathogenic Casts 1-5 GRANULAR CASTS /lpf (0) Laboratory results as reviewed by me. Medications Administered Medications (Trade) Dose Ordered Sig/Jillian Route Start Time Stop Time Status Last Admin Dose Admin Sodium Chloride 1,000 ml @ 999 mls/hr Q1H1M STAT IV 01/04/18 23:16 01/05/18 00:16 DC 01/04/18 23:29 999 MLS/HR Ondansetron HCl (Zofran Inj) 4 mg NOW STAT IV 01/04/18 23:16 01/04/18 23:19 DC 01/04/18 23:29 4 MG Lidocaine HCl (Afrin W/ Lidocaine 4%) 4 ml NOW STAT EXT 01/05/18 00:05 01/05/18 00:07 DC 01/05/18 00:05 4 ML Ondansetron HCl (Zofran Inj) 4 mg Q6H PRN IV 01/05/18 01:00 02/04/18 00:59 01/05/18 04:12 4 MG ED Course 2308: The patient was evaluated in room C1B. A complete history and physical exam was performed. 2316: Ordered Zofran Inj 4 mg IV, NSS 1000 ml @ 999 mls/hr IV. 0001: I reevaluated the patient and he is feeling alright. He requested something for nasal congestion. 0005: Ordered Lidocaine HCl 4 ml EXT. 0010: I discussed the patient's case with Dr. Maradiaga- General Surgery. He agrees that if the patient is stable without significant discomfort that he should be admitted to medicine with an NG tube and he will see the patient as an inpatient. 0020: Discussed the patient's case with Dr. Garza -[facility]. The patient will be evaluated for further treatment and disposition. Medical Decision Differential: Gastroenteritis, Food Borne, Esophageal Perforation, , Electrolyte Abnormality, Dehydration, Intraabdominal Infection, UTI/ Pyelonephritis, Bowel Obstruction, Biliary Pathology, postsurgical infection, ileus, amongst other pathology entertained. 72 yr old male arrives for evaluation of vomiting this evening 2 weeks post diverting colostomy s/p perfed diverticulitis. Patient with distended abdomen, hyperactive bowels but no peritonitis and is actually quite comfortable appearing. CT done given history and exam which confirms SBO, high grade. No tachy, wbc, nor significant pain with this. Reviewed with Gen Surg who agree with hosp admit and they will consult. Patient had NG tube placed and tolerated this well. Pt and comfortable with plan. Patient without evidence peritonitis nor significant pain at time of admission. Symptoms not consistent with acute ischemic bowel. Medication Reconcilliation Current Medication List: was personally reviewed by me Blood Pressure Screening Patient's blood pressure: Normal blood pressure Will be further monitored by the hospitalist. Consults Time Called: 2351 Consulting Physician: Dr. Maradiaga- General Surgery Returned Call: 0010 I discussed the patient's case with Dr. Maradiaga- General Surgery. He agrees that if the patient is stable without significant discomfort that he should be admitted to medicine with an NG tube and he will see the patient as an inpatient. Additional Consults: Time Called: 17 Consulted Physician: Dr. Greg WADE Hospitalist Returned Call: 0020 Additional Comments: Discussed the patient's case with Dr. Greg WADE Hospitalist. The patient will be evaluated for further treatment and disposition. Impression Primary Impression: Small bowel obstruction Scribe Attestation The scribe's documentation has been prepared under my direction and personally reviewed by me in its entirety. I confirm that the note above accurately reflects all work, treatment, procedures, and medical decision making performed by me. Departure Information Dispostion Being Evaluated By Hospitalist Referrals Edmond Estrada M.D. (PCP) Patient Instructions My [facility]
[2018-01-04 23:49] LABS: ISTAT IONIZED CALCIUM 1.26 mmol/l (1.12-1.32); ISTAT POTASSIUM 3.8 mEq/L (3.3-5.0)
[2018-01-04 23:56] LABS: ALBUMIN 3.3 gm/dl (3.4-5.0); CALCIUM 10.2 mg/dl (8.5-10.1); CREATININE 0.97 mg/dl (0.60-1.40); POTASSIUM 3.8 mmol/L (3.5-5.1)
[2018-01-04 23:59] LABS: TOTAL PROTEIN 7.5 gm/dl (6.4-8.2)
[2018-01-05] VITALS (7 sets, daily range): BP systolic 142–163; BP diastolic 77–88; PULSE 79–93; TEMP 36.9–37.1; O2SAT 93–96; Ht 175.3 cm; Wt 69.2 kg
[2018-01-05] MEDS ORDERED: OPTIRAY 320 IV PRN
[2018-01-05] MEDS ORDERED: LIDOCAINE 4% W/AFRIN NASAL SOLN 4ML EXT STA (00:05)
[2018-01-05] MEDS ORDERED: PIPERACILL/TAZOBAC CONSULT ACTIVE PRN (01:00)
[2018-01-05] MEDS ORDERED: ONDANSETRON INJ 2 MG/ML 2 ML VIAL IV PRN (01:00)
[2018-01-05 01:29] LABS: PHOSPHORUS 4.1 mg/dl (2.5-4.9)
[2018-01-05 01:30] LABS: PTT PATIENT 23.1 SECONDS (21.0-31.0)
--- NOTE | 2018-01-05 01:39 | History and Physical ---
History & Physical Date & Time of Service: January 05, 2018 at 01:12 Chief Complaint: Had Surgery On 12/19 Here Due To Colon-Throwing Up Primary Care Physician: Edmond Estrada M.D. History of Present Illness Source: patient Mr. Butts is a pleasant 72yo C male with history of HTN and HLP. He was recently admitted to [facility] 12/19 - 12/24 with acute diverticulitis of the sigmoid colon with perforation. He was taken to the operating room for emergent exploratory laparotomy with sigmoid resection with end colostomy and appendectomy. He was found to have purulence in the abdominal cavity, culture + E.coli s/p treatment with Ciprofloxacin and Flagyl while inpatient and discharged home on a 9 day course of Augmentin which he completed yesterday AM. He was discharged home in stable condition. Patient states that over the last 5-6 days he has been experiencing nausea/ gagging and dry heaves as well as poor PO intake. He states that it has been " a struggle to eat". This afternoon he reports eating some banana bread which was fairly well tolerated. At appx 17:30 he had nausea with nonbloody/ nonbilious emesis x 1 episode. He had another episode of emesis at 2200. He reports worsening abdominal fullness and distention and some bandlike abdominal pain. He reports decreased output from his ostomy today. In the ER he was found to be afebrile, hemodynamically stable. CT of the abdomen suggestive of high grade bowel obstruction. NGT place to LIWS with improvement in symptoms. Past Medical/Surgical History Medical Problems: 1. Acute sigmoid diverticulitis with perforation 2. Bowel obstruction 3. Diverticulitis 4. Hypertension 5. Hyperlipidemia 6. Right clavicular fracture 7. Prostate CA s/p prostatectomy Past Surgical History: 1. Exploratory laparotomy 2. Sigmoid resection 3. Appendectomy 4. Colostomy 5. Prostatectomy 2012 6. Bilateral inguinal hernia repair 7. RLE hematoma evacuation Family History Cancer Hypertension Social History Smoking Status: Never Smoker Smokeless Tobacco Use: No Alcohol Use: none Drug Use: none Marital Status: Housing status: lives with significant other Occupational Status: retired Immunizations History of Influenza Vaccine: N/A Influenza Vaccine Date: Jun 06, 2010 History of Tetanus Vaccine?: Unknown History of Pneumococcal: Yes Pneumococcal Date: May 26, 2012 History of Hepatitis B Vaccine: Unknown Allergies Coded Allergies: No Known Allergies (Verified , 01/04/18) Home Medications Scheduled Ascorbic Acid (Vitamin C), 500 MG PO BID Atorvastatin (Lipitor), 10 MG PO DAILY AT NOON Calcium/Vitamin D (Os-Scot 500 Plus D), 1 TAB PO BID Fish Oil ([place]-3), 1 CAP PO QAM Lisinopril (Prinivil), 10 MG PO DAILY AT NOON Multiple Vitamin (Multivitamin), 1 TAB PO NOON Review of Systems Constitutional: No fever, No chills, No sweats, No weight loss, No fatigue Eyes: No worsening of vision, No diplopia ENT: No hearing loss, No sore throat, No trouble swallowing Respiratory: No cough, No sputum, No wheezing, No shortness of breath, No dyspnea on exertion Cardiovascular: No chest pain, No edema Abdomen: + pain, + nausea, + vomiting, No diarrhea, No constipation, No GI bleeding Musculoskeletal: No joint pain, No muscle pain Genitourinary - Male: No hematuria, No dysuria, No urinary frequency, No urinary urgency Neurologic: No weakness Hematologic / Lymphatic: No abnormal bleeding/bruising, No clotting problems Integumentary: No rash, No itch Physical Exam Vital Signs Date Time Temp Pulse Resp B/P (MAP) Pulse Ox O2 Delivery O2 Flow Rate FiO2 01/05/18 01:03 83 20 136/81 98 Room Air 01/04/18 23:39 79 01/04/18 23:00 36.9 100 20 132/65 97 Room Air General Appearance: WD/WN, no apparent distress Head: normocephalic, atraumatic Eyes: normal inspection, PERRL, EOMI, sclerae normal ENT: normal ENT inspection, pharynx normal Neck: supple, no adenopathy, thyroid normal, no JVD, no carotid bruits, trachea midline Respiratory/Chest: chest non-tender, lungs clear, normal breath sounds, no respiratory distress, no accessory muscle use Cardiovascular: regular rate, rhythm, no edema, no gallop, no JVD, no murmur, normal peripheral pulses Abdomen/GI: normal bowel sounds, + tenderness, + distended, + pertinent finding (firm abdomen, kaelyn in place no bleeding/drainage or erythema, DEBRA drain site clean) Back: normal inspection, no CVA tenderness Extremities/Musculoskelatal: normal inspection, no calf tenderness, normal capillary refill, no pedal edema Neurologic/Psych: normal mood/affect, oriented x 3 Skin: normal color, warm/dry, no rash Diagnostics Laboratory Results Results Past 24 Hours Test 01/04/18 23:29 01/04/18 23:38 01/04/18 23:50 Range/Units White Blood Count 10.69 4.8-10.8 K/uL Red Blood Count 4.14 4.7-6.1 M/uL Hemoglobin 12.6 14.0-18.0 g/dL Hematocrit 35.9 42-52 % Mean Corpuscular Volume 86.7 80-100 fL Mean Corpuscular Hemoglobin 30.4 25-34 pg Mean Corpuscular Hemoglobin Concent 35.1 32-36 g/dl Platelet Count 533 130-400 K/uL Mean Platelet Volume 9.1 7.4-10.4 fL Neutrophils (%) (Auto) 80.2 % Lymphocytes (%) (Auto) 11.5 % Monocytes (%) (Auto) 6.2 % Eosinophils (%) (Auto) 1.5 % Basophils (%) (Auto) 0.3 % Neutrophils # (Auto) 8.58 1.4-6.5 K/uL Lymphocytes # (Auto) 1.23 1.2-3.4 K/uL Monocytes # (Auto) 0.66 0.11-0.59 K/uL Eosinophils # (Auto) 0.16 0-0.5 K/uL Basophils # (Auto) 0.03 0-0.2 K/uL RDW Standard Deviation 43.0 36.4-46.3 fL RDW Coefficient of Variation 13.4 11.5-14.5 % Immature Granulocyte % (Auto) 0.3 % Immature Granulocyte # (Auto) 0.03 0.00-0.02 K/uL Sodium Level 133 136-145 mmol/L Potassium Level 3.8 3.5-5.1 mmol/L Chloride Level 96 98-107 mmol/L Carbon Dioxide Level 30 21-32 mmol/L Anion Gap 7.0 18.0 16-25 mmol/L Blood Urea Nitrogen 16 7-18 mg/dl Creatinine 0.97 0.60-1.40 mg/dl Est Creatinine Clear Calc Drug Dose 67.6 ml/min Estimated GFR () 89.4 Estimated GFR (Non- 77.1 BUN/Creatinine Ratio 17.0 10-20 Random Glucose 124 70-99 mg/dl Calcium Level 10.2 8.5-10.1 mg/dl Total Bilirubin 0.6 0.2-1 mg/dl Direct Bilirubin 0.2 0-0.2 mg/dl Aspartate Amino Transf (AST/SGOT) 37 15-37 U/L Alanine Aminotransferase (ALT/SGPT) 42 12-78 U/L Alkaline Phosphatase 89 45-117 U/L Total Protein 7.5 6.4-8.2 gm/dl Albumin 3.3 3.4-5.0 gm/dl Lipase 317 73-393 U/L Bedside Hemoglobin 12.6 14.0-18.0 g/dl Bedside Hematocrit 37 42-52 % Bedside Sodium 135 135-144 mEq/L Bedside Potassium 3.8 3.3-5.0 mEq/L Bedside Chloride 93 101-112 mEq/L Bedside Total CO2 28 24-31 mEq/l Bedside Blood Urea Nitrogen 17 7-18 mg/dl Bedside Creatinine 1.0 0.6-1.3 mg/dl Bedside Glucose (other) 132 70-99 mg/dl Bedside Ionized Calcium (Rudi) 1.26 1.12-1.32 mmol/l Urine Color YELLOW Urine Appearance TURBID CLEAR Urine pH 7.0 4.5-7.5 Urine Specific [place] 1.025 1.000-1.030 Urine Protein TRACE NEG Urine Glucose (UA) NEG NEG Urine Ketones NEG NEG Urine Occult Blood NEG NEG Urine Nitrite NEG NEG Urine Bilirubin NEG NEG Urine Urobilinogen NEG NEG Urine Leukocyte Esterase NEG NEG Urine WBC (Auto) 1-5 0-5 /hpf Urine RBC (Auto) 0-4 0-4 /hpf Urine Hyaline Casts (Auto) 5-10 0-5 /lpf Urine Epithelial Cells (Auto) 20-30 0-5 /lpf Urine Bacteria (Auto) NEG NEG Urine Crystals AMORPHOUS SEDIMENT NONE PRSENT Urine Pathogenic Casts 1-5 GRANULAR CASTS 0 /lpf Diagnostic Radiology High grade bowel obstruction, no free air or fluid, no abscess Normal EKG Impression Assessment and Plan 72yo male with HTN, HLP, s/p exploratory laparotomy, sigmoid resection with end ostomy placement, appendectomy presenting with high grade bowel obstruction. 1. Bowel obstruction - no evidence of perforation/free air or fluid on CT. Patient is afebrile, hemodynamically stable, nontoxic in appearance. He reports improvement in pain/distention and nausea with placement of the NGT -NPO -NGT to LIWS -NSS at 125mL/hr x 2 liters -Monitor electrolytes and replete as needed -Zosyn 3.375gm IV q 6 hours -Zofran PRN for nausea -Morphine PRN for pain control -Serial abdominal exam q shift -Will check KUB in morning -Surgery consulted 2. HTN - patient presently normotensive -Will hold Lisinopril 10mg for now as patient is NPO -Will add PRN agent if patient becomes hypertensive 3. HLP - stable -Will hold Lipitor 10mg for now as patient is NPO 4. F/E/N - NSS at 125mL/hr, monitor electrolytes and replete as needed, NPO 5. Ppx - Lovenox for DVT prophylaxis 6. Code - Full per discussion with patient 7. Dispo - admit to general medical floor Resuscitation Status Full VTE Prophylaxis Will order VTE Prophylaxis: Yes
[2018-01-05] MEDS ORDERED: MoRPHine SULFATE 4 MG/ML 1 ML CARP\\VIAL IV PRN (01:45)
[2018-01-05] MEDS ORDERED: PIPERACILL/TAZOBAC IV 3.375 GM in DEXTROSE 5% 100ML 100 ML IV ONE (03:00)
[2018-01-05] MEDS: SODIUM CHLORIDE 0.9% 1000ML 1,000 ML IV SCH ×3 (03:09→20:54)
--- NOTE | 2018-01-05 07:13 | DIAGNOSTIC IMAGING REPORT ---
KUB HISTORY: Follow-up study in a patient with small bowel obstruction. Recent colectomy. bowel obstruction COMPARISON: CT abdomen and pelvis 01/04/2018 FINDINGS: Multiple dilated loops of air-filled small bowel are seen throughout the abdomen measuring up to 3.8 cm transversely. No pneumatosis or pneumoperitoneum. Midline skin kaelyn are noted from prior laparotomy changes. Surgical suture material projects over the central pelvis. Multiple scattered punctate radiodensities throughout the abdomen suggest areas of retained oral contrast. The degree of small bowel dilation appears unchanged from CT study of 01/04/2018. Enteric tube has been placed with distal tip terminating near the gastroesophageal junction. No renal calculi. No ureteral calculi. No pneumoperitoneum or pneumatosis. No fracture. Degenerative changes of the spine and hips. IMPRESSION: 1. Status post placement of an enteric tube with distal tip projecting within the region of the gastroesophageal junction. 2. Persistent dilated loops of small bowel throughout the abdomen with evidence of prior laparotomy. These findings suggest postsurgical ileus or small bowel obstruction. 3. No pneumoperitoneum or pneumatosis identified. Electronically signed by: Noah Jacob M.D. 01/05/2018 7:12 AM Dictated Date/Time: 01/05/2018 7:08 AM
--- NOTE | 2018-01-05 07:34 | DIAGNOSTIC IMAGING REPORT ---
ABDOMEN AND PELVIS CT WITH IV CONTRAST CT DOSE: 308.17 mGy.cm HISTORY: Generalized abdominal pain. Nausea. Vomiting.. Recent colectomy s/p perf diverticulitis TECHNIQUE: Multiaxial CT images of the abdomen and pelvis were performed following the use of intravenous contrast. A dose lowering technique was utilized adhering to the principles of ALARA. COMPARISON STUDY: Abdomen and pelvis CT 12/18/2017. FINDINGS: Bibasilar linear densities consistent with subsegmental atelectasis. No pneumoperitoneum. No pneumatosis. No suspicious lytic or blastic osseous lesions. Stable hypodense lesions within the left hepatic lobe and kidneys. These likely represent cysts. No hydronephrosis. The pancreas, spleen, adrenal glands, and gallbladder are unremarkable. No retroperitoneal lymphadenopathy. 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 This remains unchanged. The bladder is unremarkable. Small amount of pelvic fluid anteriorly. There has been interval left lower quadrant colostomy. A few scattered colonic diverticula are noted. The majority of the colon and distal small bowel are decompressed. The proximal to mid small bowel loops are distended and filled with gas and fluid. These measure up to 4.7 cm in diameter. There appears to be focal narrowing of the small bowel within the mid abdomen best seen on image 232 of 446. This corresponds to the transition point for the high-grade small bowel obstruction. There is a fluid-filled structure within the right side of the abdomen which is seen on images 254 through 313. The contents are slightly hyperdense and there is an associated enhancing wall. This could represent a distorted loop of small bowel or a separate extraluminal fluid collection. This measures up to 7.2 cm in length and 4.1 cm in thickness. There is no gas within this collection. Therefore, could represent a postoperative seroma, hematoma, or possibly a developing abscess. There are midline skin kaelyn present. IMPRESSION: 1. High-grade small bowel obstruction with the transition point in the mid abdomen. This could be due to an adhesion or internal hernia. 2. Postoperative changes with associated left lower quadrant ostomy. 3. There is a fluid-filled structure within the right side of the abdomen as described above. The contents are slightly hyperdense and there is an associated enhancing wall. This could represent a distorted loop of small bowel or a separate extraluminal fluid collection. This measures up to 7.2 cm in length and 4.1 cm in thickness. There is no gas within this collection. Therefore, could represent a postoperative seroma, hematoma, or possibly a developing abscess. 4. Additional findings as described above. Electronically signed by: John Boyd M.D. 01/05/2018 7:33 AM Dictated Date/Time: 01/05/2018 7:12 AM
[2018-01-05] MEDS: PIPERACILL/TAZOBAC IV 3.375 GM in DEXTROSE 5% 100ML 100 ML IV SCH ×2 (07:48→16:00)
[2018-01-05] MEDS: ENOXAPARIN 40 MG/0.4 ML SYR SQ SCH (08:53)
--- NOTE | 2018-01-05 11:45 | Family Medicine Progress Note ---
Progress Note Date of Service January 05, 2018. Subjective Pt resting comforably in bed with NG tube in place. As per HPI describes a recent history of nausea and inability to keep food down. Denies difficulty breathing or subjective fevers or bloody stool/emesis. Has kept his follow up appointments with outpatient providers. Abdominal pain is controlled on current regimen. Discussed expectations for prognosis and how these will take time to resolve, and also discussed results of imaging. ROS See HPI for pertinent positives and negatives. Objective Physical Exam Notes: GENERAL: Awake, alert, in no distress. HENT: Normocephalic, atraumatic. NG tube in place draining bilious fluid @ 50cm. EYES: Normal conjunctiva. Sclera non-icteric. NECK: Supple. FROM. RESPIRATORY: Clear to auscultation. CARDIAC: Regular rate, normal rhythm. Extremities warm and well perfused. Pulses equal. ABDOMEN: Firm, distended. Mild tenderness to palpation. No rebound or guarding. Colostomy in tact. LOWER EXTREMITIES: Calves are equal size bilaterally and non-tender. No edema. No discoloration. NEURO: No motor deficits noted. SKIN: No rash or jaundice noted. Assessment and Plan 72yo male with HTN, HLP, s/p exploratory laparotomy, sigmoid resection with end ostomy placement, appendectomy presenting with high grade bowel obstruction. 1. Bowel obstruction - no evidence of perforation/free air or fluid on CT. - CT abd/pelv showing proximal to mid small bowel loops distended and filled with gas and fluid - measuring up to 4.7 cm in diameter, high-grade small bowel obstruction. also evidence of fluid-filled structure within the right side of the abdomen which could represent a seroma/hematoma/or possibly a developing abscess. -NPO -NGT to LIWS @ 50cm - KUB shows it is at GE junction, asked to advance by 3 cm now. -continuous NSS running at 125mL/hr -Monitor electrolytes and replete as needed -Zosyn 3.375gm IV q 6 hours -Zofran PRN for nausea -Morphine PRN for pain control - adequate -Serial abdominal exam q shift -Surgery consulted, awaiting recs 2. HTN -Holding Lisinopril 10mg for now as patient is NPO. -Stable. 3. HLD - stable -Holding Lipitor 10mg for now as patient is NPO Ppx - Lovenox for DVT prophylaxis Code - Full per discussion with patient Dispo - Med/surg Current Inpatient Medications Medications (Trade) Dose Ordered Sig/Jillian Route Start Time Stop Time Status Last Admin Dose Admin Ioversol (Optiray 320) 93 ml UD PRN IV 01/05/18 00:00 01/09/18 00:00 Enoxaparin Sodium (Lovenox Inj) 40 mg Q24H SQ 01/05/18 09:00 02/04/18 08:59 01/05/18 08:53 40 MG Ondansetron HCl (Zofran Inj) 4 mg Q6H PRN IV 01/05/18 01:00 02/04/18 00:59 01/05/18 04:12 4 MG Sodium Chloride 1,000 ml @ 125 mls/hr Q8H IV 01/05/18 02:45 01/05/18 18:44 01/05/18 10:52 125 MLS/HR Piperacillin Sod/ Tazobactam Sod 3.375 gm/Dextrose 115 ml @ 28.75 mls/ hr Q8H IV 01/05/18 08:00 01/15/18 07:59 01/05/18 07:48 28.75 MLS/HR Miscellaneous Information (Consult) 1 ea UD PRN N/A 01/05/18 01:00 02/04/18 00:59 Morphine Sulfate (MoRPHine SULFATE INJ) 2 mg Q6H PRN IV 01/05/18 01:45 01/19/18 01:44 01/05/18 03:08 2 MG Date Time Temp Pulse Resp B/P (MAP) Pulse Ox O2 Delivery O2 Flow Rate FiO2 01/05/18 11:28 36.9 82 18 142/79 (100) 93 Room Air 01/05/18 08:02 Room Air 01/05/18 07:24 37.0 80 18 148/83 (104) 94 Room Air 01/05/18 03:20 82 143/81 (101) 01/05/18 02:30 36.9 93 18 163/81 96 Room Air 01/05/18 02:30 Room Air 01/05/18 01:52 78 20 131/78 98 Room Air 01/05/18 01:03 83 20 136/81 98 Room Air 01/04/18 23:39 79 01/04/18 23:00 36.9 100 20 132/65 97 Room Air Last Resulted 01/04/18 23:29 Red Blood Count 4.14, Mean Corpuscular Volume 86.7, Mean Corpuscular Hemoglobin 30.4, Mean Corpuscular Hemoglobin Concent 35.1, Mean Platelet Volume 9.1, Neutrophils (%) (Auto) 80.2, Lymphocytes (%) (Auto) 11.5, Monocytes (%) (Auto) 6.2, Eosinophils (%) (Auto) 1.5, Basophils (%) (Auto) 0.3, Neutrophils # (Auto) 8.58, Lymphocytes # (Auto) 1.23, Monocytes # (Auto) 0.66, Eosinophils # (Auto) 0.16, Basophils # (Auto) 0.03 Last Resulted 01/04/18 23:29 Past 24 Hours Test 01/04/18 23:30 Range/Units Prothromb Time International Ratio 1.0 0.9-1.1 Prothrombin Time 10.2 9.0-12.0 SECONDS Continued [facility] stay due to: multiple IV medications needed Discharge planning: home Resident Tracking Resident Involvement: Resident Care Provided Care Provided: Adult Hospital Medicine Reviewed: Pt Seen/Exam by Me History abdomen still distended. NG bothersome no more vomiting Constitutional: denies: fever Respiratory: negative: short of breath Cardiovascular: denies chest pain General Appearance: no apparent distress Respiratory: no respiratory distress, decreased breath sounds (base) Cardiovascular: regular rate, rhythm Gastrointestinal: normal bowel sounds, soft, distended Neurologic/Psychiatric: alert, oriented x 3 Skin Characteristics: warm/dry Assessment/Plan Resident Physician Supervision Note: I independently interviewed and examined the patient and verified the cutler history and physical, reviewed labs and image studies, discussed the case with the resident Dr. Morton and agree with the findings and care plan.
--- NOTE | 2018-01-05 17:45 | Surgery Consultation ---
Consultation Date of Consultation: January 05, 2018. Attending Physician: Jacqueline Garza M.D. Reason for Consultation: SBO History of Present Illness Param is a pleasant 72-year-old male who presented to the emergency room with complaint of nausea, dry heaves and poor p.o. intake. Param was recently admitted here at [facility] from December 19 - December 24 with acute diverticulitis of the sigmoid colon with perforation. He underwent exploratory laparotomy with sigmoid resection and colostomy and Eaton's procedure by Dr. Escalante. He was found to have purulence in the abdominal cavity with positive E. coli culture and was discharged home on a 9 day course of Augmentin which he completed yesterday morning. His overall hospital course last admission was uneventful. He has followed up with Dr. Escalante in the office. States he has noticed in the past few days decrease oral intake and started having nominal pain bloating and nausea. He reports decreased output from his ostomy today. CT of the abdomen and pelvis with IV contrast showing proximal to mid small bowel loops are distended and filled with gas and fluid measuring up to 4.7 cm in diameter there appears to be a focal narrowing of small bowel within the mid abdomen corresponding to a transition point for Shakira high-grade small bowel obstruction. There is also evidence of fluid-filled structure within the right side of the abdomen which could represent a seroma, hematoma, or possibly a developing abscess. In the ER he was afebrile tachycardic however hemodynamically stable. Labs show no leukocytosis. Patient was admitted and NG tube placed. Since being admitted and NG tube placed he has felt better for nausea has improved and abdominal pain has improved as well feels less bloated. There is ostomy output of liquid brown stool no blood present Past Medical/Surgical History Medical Problems: (1) Diverticulitis of intestine with perforation (2) Hyperlipidemia (3) Hypertension Past Surgical History: 1. Ex lap, sigmoid resection, Eaton's procedure Family History Cancer Hypertension Social History Smoking Status: Never Smoker Smokeless Tobacco Use: No Alcohol Use: none Drug Use: none Marital Status: Housing Status: lives with significant other Occupation Status: retired Allergies Coded Allergies: No Known Allergies (Verified , 01/04/18) Home Medications Scheduled Ascorbic Acid (Vitamin C), 500 MG PO BID Atorvastatin (Lipitor), 10 MG PO DAILY AT NOON Calcium/Vitamin D (Os-[place] 500 Plus D), 1 TAB PO BID Fish Oil ([place]-3), 1 CAP PO QAM Lisinopril (Prinivil), 10 MG PO DAILY AT NOON Multiple Vitamin (Multivitamin), 1 TAB PO NOON Current Inpatient Medications Current Inpatient Medications Medications (Trade) Dose Ordered Sig/Jillian Route Start Time Stop Time Status Last Admin Dose Admin Ioversol (Optiray 320) 93 ml UD PRN IV 01/05/18 00:00 01/09/18 00:00 Enoxaparin Sodium (Lovenox Inj) 40 mg Q24H SQ 01/05/18 09:00 02/04/18 08:59 01/05/18 08:53 40 MG Ondansetron HCl (Zofran Inj) 4 mg Q6H PRN IV 01/05/18 01:00 02/04/18 00:59 01/05/18 04:12 4 MG Sodium Chloride 1,000 ml @ 125 mls/hr Q8H IV 01/05/18 02:45 01/05/18 18:44 01/05/18 10:52 125 MLS/HR Piperacillin Sod/ Tazobactam Sod 3.375 gm/Dextrose 115 ml @ 28.75 mls/ hr Q8H IV 01/05/18 08:00 01/15/18 07:59 01/05/18 16:00 28.75 MLS/HR Miscellaneous Information (Consult) 1 ea UD PRN N/A 01/05/18 01:00 02/04/18 00:59 Morphine Sulfate (MoRPHine SULFATE INJ) 2 mg Q6H PRN IV 01/05/18 01:45 01/19/18 01:44 01/05/18 03:08 2 MG Review of Systems Constitutional: No fever, No chills, No sweats Respiratory: No cough, No shortness of breath Cardiovascular: No chest pain Abdomen: + pain, + nausea, + vomiting, + problem reported (decreased ostomy output), No diarrhea, No constipation, No GI bleeding Genitourinary - Male: No hematuria Hematologic / Lymphatic: No abnormal bleeding/bruising Integumentary: No rash Physical Exam Date Time Temp Pulse Resp B/P (MAP) Pulse Ox O2 Delivery O2 Flow Rate FiO2 01/05/18 16:10 79 148/77 (100) Room Air 01/05/18 15:42 37.1 80 16 157/79 (105) 96 Room Air 01/05/18 11:28 36.9 82 18 142/79 (100) 93 Room Air 01/05/18 08:02 Room Air 01/05/18 07:24 37.0 80 18 148/83 (104) 94 Room Air 01/05/18 03:20 82 143/81 (101) 01/05/18 02:30 36.9 93 18 163/81 96 Room Air 01/05/18 02:30 Room Air 01/05/18 01:52 78 20 131/78 98 Room Air 01/05/18 01:03 83 20 136/81 98 Room Air 01/04/18 23:39 79 01/04/18 23:00 36.9 100 20 132/65 97 Room Air General Appearance: WD/WN, no apparent distress Head: normocephalic, atraumatic Eyes: sclerae normal ENT: hearing grossly normal Neck: trachea midline Respiratory/Chest: no respiratory distress, no accessory muscle use Cardiovascular: regular rate, rhythm, no murmur Abdomen/GI: soft, no organomegaly, no pulsatile mass, + tenderness ( generalized tenderness), + distended, + pertinent finding (ostomy pink functioning with thick brown liquid stool) Neurologic/Psych: alert, normal mood/affect, oriented x 3 Skin: normal color, warm/dry, no rash Laboratory Results Last 24 Hours Test 01/04/18 23:29 01/04/18 23:30 01/04/18 23:38 01/04/18 23:50 White Blood Count 10.69 K/uL Red Blood Count 4.14 M/uL Hemoglobin 12.6 g/dL Hematocrit 35.9 % Mean Corpuscular Volume 86.7 fL Mean Corpuscular Hemoglobin 30.4 pg Mean Corpuscular Hemoglobin Concent 35.1 g/dl Platelet Count 533 K/uL Mean Platelet Volume 9.1 fL Neutrophils (%) (Auto) 80.2 % Lymphocytes (%) (Auto) 11.5 % Monocytes (%) (Auto) 6.2 % Eosinophils (%) (Auto) 1.5 % Basophils (%) (Auto) 0.3 % Neutrophils # (Auto) 8.58 K/uL Lymphocytes # (Auto) 1.23 K/uL Monocytes # (Auto) 0.66 K/uL Eosinophils # (Auto) 0.16 K/uL Basophils # (Auto) 0.03 K/uL RDW Standard Deviation 43.0 fL RDW Coefficient of Variation 13.4 % Immature Granulocyte % (Auto) 0.3 % Immature Granulocyte # (Auto) 0.03 K/uL Sodium Level 133 mmol/L Potassium Level 3.8 mmol/L Chloride Level 96 mmol/L Carbon Dioxide Level 30 mmol/L Anion Gap 7.0 mmol/L 18.0 mmol/L Blood Urea Nitrogen 16 mg/dl Creatinine 0.97 mg/dl Est Creatinine Clear Calc Drug Dose 67.6 ml/min Estimated GFR () 89.4 Estimated GFR (Non- 77.1 BUN/Creatinine Ratio 17.0 Random Glucose 124 mg/dl Calcium Level 10.2 mg/dl Phosphorus Level 4.1 mg/dl Magnesium Level 2.1 mg/dl Total Bilirubin 0.6 mg/dl Direct Bilirubin 0.2 mg/dl Aspartate Amino Transf (AST/SGOT) 37 U/L Alanine Aminotransferase (ALT/SGPT) 42 U/L Alkaline Phosphatase 89 U/L Total Protein 7.5 gm/dl Albumin 3.3 gm/dl Lipase 317 U/L Prothrombin Time 10.2 SECONDS Prothromb Time International Ratio 1.0 Activated Partial Thromboplast Time 23.1 SECONDS Partial Thromboplastin Ratio 0.9 Bedside Hemoglobin 12.6 g/dl Bedside Hematocrit 37 % Bedside Sodium 135 mEq/L Bedside Potassium 3.8 mEq/L Bedside Chloride 93 mEq/L Bedside Total CO2 28 mEq/l Bedside Blood Urea Nitrogen 17 mg/dl Bedside Creatinine 1.0 mg/dl Bedside Glucose (other) 132 mg/dl Bedside Ionized Calcium (Rudi) 1.26 mmol/l Urine Color YELLOW Urine Appearance TURBID Urine pH 7.0 Urine Specific [place] 1.025 Urine Protein TRACE Urine Glucose (UA) NEG Urine Ketones NEG Urine Occult Blood NEG Urine Nitrite NEG Urine Bilirubin NEG Urine Urobilinogen NEG Urine Leukocyte Esterase NEG Urine WBC (Auto) 1-5 /hpf Urine RBC (Auto) 0-4 /hpf Urine Hyaline Casts (Auto) 5-10 /lpf Urine Epithelial Cells (Auto) 20-30 /lpf Urine Bacteria (Auto) NEG Urine Crystals AMORPHOUS SEDIMENT Urine Pathogenic Casts 1-5 GRANULAR CASTS /lpf Assessment & Plan 72-year-old male who presented to the emergency room with nausea, vomiting, decreased ostomy output, decreased p.o. intake. Patient has remote history of ex-lap with sigmoid resection and end colostomy for perforated acute diverticulitis of the sigmoid colon. CT scan showing evidence of dilated mid small bowel loops measuring up to 4.7 cm with a transition point. Concern for fluid collection of the right lower abdomen concerning for postop seroma, hematoma, early abscess formation. Vitals stable currently afebrile hemodynamically stable. NG tube placed and moderate output with ostomy output now patient feeling better since admission. Plan: Continue conservative management: IV fluids, IV antibiotics, IV pain medication as needed, IV Zofran as needed for nausea. We will closely monitor if there is no significant improvement in the next 1-2 days patient may require exploration to find because of small bowel obstruction. Continue medical management Encourage out of bed to chair Will follow Dr. Escalante has seen and examined patient agrees with above
[2018-01-06] MEDS: PIPERACILL/TAZOBAC IV 3.375 GM in DEXTROSE 5% 100ML 100 ML IV SCH ×4 (00:35→23:31)
[2018-01-06 05:45] LABS: BASO % 0.2 %; BASO ABS # 0.02 K/uL (0-0.2); EOS % 4.4 %; EOS ABS # 0.38 K/uL (0-0.5); HEMATOCRIT 34.1 % (42-52); HEMOGLOBIN 11.3 g/dL (14.0-18.0); IG# 0.03 K/uL (0.00-0.02); LYMPH % 9.2 %; MEAN CELL VOLUME 89.3 fL (80-100); MEAN CORPUSCULAR HEMOGLOBIN 29.6 pg (25-34); MEAN CORPUSCULAR HGB CONC 33.1 g/dl (32-36); MEAN PLATELET VOLUME 9.1 fL (7.4-10.4); MONO % 8.4 %; MONO ABS # 0.73 K/uL (0.11-0.59); NEUT % 77.5 %; NEUT ABS # 6.71 K/uL (1.4-6.5); PLATELET COUNT 438 K/uL (130-400); RED CELL DISTRIBUTION WIDTH CV 13.7 % (11.5-14.5); RED CELL DISTRIBUTION WIDTH SD 45.1 fL (36.4-46.3); WHITE BLOOD COUNT 8.67 K/uL (4.8-10.8)
[2018-01-06 06:19] LABS: CALCIUM 8.6 mg/dl (8.5-10.1); CREATININE 0.97 mg/dl (0.60-1.40); POTASSIUM 3.8 mmol/L (3.5-5.1)
[2018-01-06] MEDS: SODIUM CHLORIDE 0.9% 1000ML 1,000 ML IV SCH ×2 (07:05→16:27)
[2018-01-06 07:35] VITALS: BP 160/82; PULSE 81; TEMP 36.8; O2SAT 94
[2018-01-06] MEDS: ENOXAPARIN 40 MG/0.4 ML SYR SQ SCH (09:33)
--- NOTE | 2018-01-06 14:59 | Family Medicine Progress Note ---
Progress Note Date of Service January 06, 2018. Subjective pt resting comfortably in chair this morning, is at bedside. reports that she too has an ostomy bag, so they have experience with it. Denies abdominal pain even to palpation, denies nausea, NGT in place, denies vomiting. Is ambulating and also using the incentive spirometry. ROS See HPI for pertinent positives and negatives. Objective Physical Exam Notes: GENERAL: Awake, alert, in no distress. HENT: Normocephalic, atraumatic. NG tube in place draining bilious fluid @ 55cm. EYES: Normal conjunctiva. Sclera non-icteric. NECK: Supple. FROM. RESPIRATORY: Clear to auscultation. CARDIAC: Regular rate, normal rhythm. Extremities warm and well perfused. Pulses equal. ABDOMEN: Firm, distended. No tenderness to palpation. No rebound or guarding. Colostomy in tact. Midline surgical scar in tact. LOWER EXTREMITIES: Calves are equal size bilaterally and non-tender. No edema. No discoloration. NEURO: No motor deficits noted. SKIN: No rash or jaundice noted. Assessment and Plan 72yo male with HTN, HLP, s/p exploratory laparotomy, sigmoid resection with end ostomy placement, appendectomy presenting with high grade bowel obstruction. 1. Bowel obstruction - no evidence of perforation/free air or fluid on CT. - CT abd/pelv showing proximal to mid small bowel loops distended and filled with gas and fluid - measuring up to 4.7 cm in diameter, high-grade small bowel obstruction. also evidence of fluid-filled structure within the right side of the abdomen which could represent a seroma/hematoma/or possibly a developing abscess. -NPO -NGT to LIWS @ 55cm -continuous NSS running at 100mL/hr for maintenance while NPO -Monitor electrolytes and replete as needed -Zosyn 3.375gm IV q 6 hours -Zofran PRN for nausea -Morphine PRN for pain control - adequate -Serial abdominal exam q shift -Surgery consulted, 2. HTN -Holding Lisinopril 10mg for now as patient is NPO. -Stable. 3. HLD - stable -Holding Lipitor 10mg for now as patient is NPO Ppx - Lovenox for DVT prophylaxis Code - Full per discussion with patient Dispo - Med/surg Current Inpatient Medications Medications (Trade) Dose Ordered Sig/Jillian Route Start Time Stop Time Status Last Admin Dose Admin Ioversol (Optiray 320) 93 ml UD PRN IV 01/05/18 00:00 01/09/18 00:00 Enoxaparin Sodium (Lovenox Inj) 40 mg Q24H SQ 01/05/18 09:00 02/04/18 08:59 01/06/18 09:33 40 MG Ondansetron HCl (Zofran Inj) 4 mg Q6H PRN IV 01/05/18 01:00 02/04/18 00:59 01/05/18 04:12 4 MG Piperacillin Sod/ Tazobactam Sod 3.375 gm/Dextrose 115 ml @ 28.75 mls/ hr Q8H IV 01/05/18 08:00 01/15/18 07:59 01/06/18 07:43 28.75 MLS/HR Miscellaneous Information (Consult) 1 ea UD PRN N/A 01/05/18 01:00 02/04/18 00:59 Morphine Sulfate (MoRPHine SULFATE INJ) 2 mg Q6H PRN IV 01/05/18 01:45 01/19/18 01:44 01/05/18 03:08 2 MG Sodium Chloride 1,000 ml @ 100 mls/hr Q10H IV 01/05/18 20:45 02/04/18 20:44 01/06/18 07:05 100 MLS/HR Pantoprazole Sodium 40 mg/ Syringe 10 ml @ 5 mls/min DAILY@11 IV 01/07/18 11:00 02/06/18 10:59 Date Time Temp Pulse Resp B/P (MAP) Pulse Ox O2 Delivery O2 Flow Rate FiO2 01/06/18 07:35 36.8 81 18 160/82 (108) 94 Room Air 01/06/18 07:20 Room Air 01/06/18 00:30 Room Air 01/05/18 23:45 37.1 82 18 157/88 (111) 96 Room Air 01/05/18 16:10 79 148/77 (100) Room Air 01/05/18 16:00 Room Air 01/05/18 15:42 37.1 80 16 157/79 (105) 96 Room Air 01/06/18 05:21 Red Blood Count 3.82, Mean Corpuscular Volume 89.3, Mean Corpuscular Hemoglobin 29.6, Mean Corpuscular Hemoglobin Concent 33.1, Mean Platelet Volume 9.1, Neutrophils (%) (Auto) 77.5, Lymphocytes (%) (Auto) 9.2, Monocytes (%) (Auto) 8.4, Eosinophils (%) (Auto) 4.4, Basophils (%) (Auto) 0.2, Neutrophils # (Auto) 6.71, Lymphocytes # (Auto) 0.80, Monocytes # (Auto) 0.73, Eosinophils # (Auto) 0.38, Basophils # (Auto) 0.02 01/06/18 05:21 Test 01/06/18 05:21 White Blood Count 8.67 K/uL (4.8-10.8) Red Blood Count 3.82 M/uL (4.7-6.1) Hemoglobin 11.3 g/dL (14.0-18.0) Hematocrit 34.1 % (42-52) Mean Corpuscular Volume 89.3 fL (80-100) Mean Corpuscular Hemoglobin 29.6 pg (25-34) Mean Corpuscular Hemoglobin Concent 33.1 g/dl (32-36) Platelet Count 438 K/uL (130-400) Mean Platelet Volume 9.1 fL (7.4-10.4) Neutrophils (%) (Auto) 77.5 % Lymphocytes (%) (Auto) 9.2 % Monocytes (%) (Auto) 8.4 % Eosinophils (%) (Auto) 4.4 % Basophils (%) (Auto) 0.2 % Neutrophils # (Auto) 6.71 K/uL (1.4-6.5) Lymphocytes # (Auto) 0.80 K/uL (1.2-3.4) Monocytes # (Auto) 0.73 K/uL (0.11-0.59) Eosinophils # (Auto) 0.38 K/uL (0-0.5) Basophils # (Auto) 0.02 K/uL (0-0.2) RDW Standard Deviation 45.1 fL (36.4-46.3) RDW Coefficient of Variation 13.7 % (11.5-14.5) Immature Granulocyte % (Auto) 0.3 % Immature Granulocyte # (Auto) 0.03 K/uL (0.00-0.02) Anion Gap 6.0 mmol/L (3-11) Est Creatinine Clear Calc Drug Dose 66.4 ml/min Estimated GFR () 89.4 Estimated GFR (Non- 77.1 BUN/Creatinine Ratio 16.2 (10-20) Calcium Level 8.6 mg/dl (8.5-10.1) Continued [facility] stay due to: multiple IV medications needed Discharge planning: home Resident Tracking Resident Involvement: Resident Care Provided Care Provided: Adult Hospital Medicine Reviewed: Pt Seen/Exam by Me History no new concerns. Constitutional: denies: fever Respiratory: negative: short of breath Cardiovascular: denies chest pain General Appearance: no apparent distress Respiratory: lungs clear, no respiratory distress Cardiovascular: regular rate, rhythm Gastrointestinal: non tender, soft, other (diminished bowel sounds) Neurologic/Psychiatric: alert, oriented x 3 Skin Characteristics: warm/dry Assessment/Plan Resident Physician Supervision Note: I independently interviewed and examined the patient and verified the cutler history and physical, reviewed labs and image studies, discussed the case with the resident Dr. Morton and agree with the findings and care plan.
[2018-01-06 15:47] VITALS: BP 169/83; PULSE 83; TEMP 37.3; O2SAT 95
--- NOTE | 2018-01-06 15:52 | Surgery Progress Note ---
Surgery Progress Note Date of Service January 06, 2018. Subjective Post OP Day: HD # 1 + feeling well feeling better, NGT not bothering as much output from ostomy, was emptied twice this morning no abdominal pain or nausea or vomiting, some belching Objective Vital Signs: Date Time Temp Pulse Resp B/P (MAP) Pulse Ox O2 Delivery O2 Flow Rate FiO2 01/06/18 07:35 36.8 81 18 160/82 (108) 94 Room Air 01/06/18 07:20 Room Air 01/06/18 00:30 Room Air 01/05/18 23:45 37.1 82 18 157/88 (111) 96 Room Air 01/05/18 16:10 79 148/77 (100) Room Air 01/05/18 16:00 Room Air 01/05/18 15:42 37.1 80 16 157/79 (105) 96 Room Air 01/05/18 11:28 36.9 82 18 142/79 (100) 93 Room Air Physical Exam: nasogastric drainage (dark, some coffee ground output in NGT) General Appearance: WD/WN, no apparent distress Head: normocephalic, atraumatic Respiratory/Chest: lungs clear, normal breath sounds, no respiratory distress, no accessory muscle use Abdomen: non tender, soft, + abnormal bowel sounds (hypoactive), + distended ( mildly distended, improving), + pertinent finding (ostomy in the LLQ with air and stool output) Incision(s): clean, dry, intact, no erythema, no drainage, findings (kaelyn presrent and intact) Laboratory Results: Results Past 24 Hours Test 01/06/18 05:21 Range/Units White Blood Count 8.67 4.8-10.8 K/uL Red Blood Count 3.82 4.7-6.1 M/uL Hemoglobin 11.3 14.0-18.0 g/dL Hematocrit 34.1 42-52 % Mean Corpuscular Volume 89.3 80-100 fL Mean Corpuscular Hemoglobin 29.6 25-34 pg Mean Corpuscular Hemoglobin Concent 33.1 32-36 g/dl Platelet Count 438 130-400 K/uL Mean Platelet Volume 9.1 7.4-10.4 fL Neutrophils (%) (Auto) 77.5 % Lymphocytes (%) (Auto) 9.2 % Monocytes (%) (Auto) 8.4 % Eosinophils (%) (Auto) 4.4 % Basophils (%) (Auto) 0.2 % Neutrophils # (Auto) 6.71 1.4-6.5 K/uL Lymphocytes # (Auto) 0.80 1.2-3.4 K/uL Monocytes # (Auto) 0.73 0.11-0.59 K/uL Eosinophils # (Auto) 0.38 0-0.5 K/uL Basophils # (Auto) 0.02 0-0.2 K/uL RDW Standard Deviation 45.1 36.4-46.3 fL RDW Coefficient of Variation 13.7 11.5-14.5 % Immature Granulocyte % (Auto) 0.3 % Immature Granulocyte # (Auto) 0.03 0.00-0.02 K/uL Sodium Level 138 136-145 mmol/L Potassium Level 3.8 3.5-5.1 mmol/L Chloride Level 105 98-107 mmol/L Carbon Dioxide Level 27 21-32 mmol/L Anion Gap 6.0 3-11 mmol/L Blood Urea Nitrogen 16 7-18 mg/dl Creatinine 0.97 0.60-1.40 mg/dl Est Creatinine Clear Calc Drug Dose 66.4 ml/min Estimated GFR () 89.4 Estimated GFR (Non- 77.1 BUN/Creatinine Ratio 16.2 10-20 Random Glucose 90 70-99 mg/dl Calcium Level 8.6 8.5-10.1 mg/dl Assessment & Plan Partial SBO s/p ex lap, sigmoid resection with end colostomy -vitals stable, afebrile, no leukocytosis - abdominal pain resolved - feeling less bloated - + ostomy output - 1 liter NGT output yesterday in 24 hours, dark brown, coffee ground appearance this am Plan: Continue NGT to LIS for one more day KUB tomorrow am If still having ostomy output plan to discontinue NGT and start liquids tomorrow Start IV Protonix Continue IV Fluids, IV Pain management prn, IV Zofran prn OOB to chair and ambulation repeat am labs continue medical management Dr. Escalante has seen and examined pt, agrees with above
[2018-01-06 16:34] VITALS: BP 156/81
[2018-01-06 23:20] VITALS: BP 153/75; PULSE 80; TEMP 37.4; O2SAT 96
[2018-01-07] MEDS: SODIUM CHLORIDE 0.9% 1000ML 1,000 ML IV SCH ×3 (01:38→20:59)
[2018-01-07 05:11] LABS: MEAN CELL VOLUME 88.9 fL (80-100); MEAN CORPUSCULAR HEMOGLOBIN 29.6 pg (25-34); MEAN CORPUSCULAR HGB CONC 33.3 g/dl (32-36); MEAN PLATELET VOLUME 8.9 fL (7.4-10.4); PLATELET COUNT 358 K/uL (130-400); RED CELL DISTRIBUTION WIDTH CV 13.4 % (11.5-14.5); RED CELL DISTRIBUTION WIDTH SD 42.9 fL (36.4-46.3); WHITE BLOOD COUNT 9.13 K/uL (4.8-10.8)
[2018-01-07 05:29] LABS: CALCIUM 8.2 mg/dl (8.5-10.1); CREATININE 0.82 mg/dl (0.60-1.40); POTASSIUM 3.6 mmol/L (3.5-5.1)
[2018-01-07] MEDS ORDERED: NURSING VERBAL MED ORDER ONE (07:30)
[2018-01-07 07:32] VITALS: BP 146/71; PULSE 71; TEMP 37; O2SAT 97
--- NOTE | 2018-01-07 07:37 | DIAGNOSTIC IMAGING REPORT ---
KUB CLINICAL HISTORY: Small bowel obstruction COMPARISON STUDY: 01/05/2018 FINDINGS: The nasogastric tube has been removed. There is a left lower quadrant ostomy. There are midline skin kaelyn. There is persistent mild small bowel dilatation with small bowel loops measuring up to 38 mm. There is a small amount of colonic gas present. IMPRESSION: 1. Persistent small bowel dilatation with small bowel loops measuring up to 38 mm 2. Interval removal of the nasogastric tube Electronically signed by: Les Godinez M.D. 01/07/2018 7:36 AM Dictated Date/Time: 01/07/2018 7:34 AM
[2018-01-07] MEDS ORDERED: METOPROLOL TARTRATE 25 MG TAB PO SCH (09:00)
[2018-01-07] MEDS: LISINOPRIL 10 MG TAB PO SCH (09:27)
[2018-01-07] MEDS: PANTOprazole INJ 40 MG in SYRINGE 0 ML IV SCH ×2 (09:27→21:00)
--- NOTE | 2018-01-07 10:34 | Surgery Progress Note ---
Surgery Progress Note Date of Service January 07, 2018. Subjective Post OP Day: HD # 2 feeling good no abdominal pain no nausea or vomiting NGT removed this am by DR. Escalante +ostomy output Objective Vital Signs: Date Time Temp Pulse Resp B/P (MAP) Pulse Ox O2 Delivery O2 Flow Rate FiO2 01/07/18 07:45 Room Air 01/07/18 07:32 37.0 71 16 146/71 (96) 97 Room Air 01/06/18 23:20 37.4 80 18 153/75 (101) 96 Room Air 01/06/18 23:15 Room Air 01/06/18 16:34 156/81 (106) 01/06/18 15:50 Room Air 01/06/18 15:47 37.3 83 17 169/83 (111) 95 Room Air General Appearance: WD/WN, no apparent distress Head: normocephalic, atraumatic Neck: trachea midline Respiratory/Chest: no respiratory distress, no accessory muscle use Abdomen: soft, no organomegaly, no pulsatile mass, + distended (mildly distended no significant change compared to yesterday) Incision(s): clean, dry, intact, no erythema, no drainage, findings (kaelyn present and intact) Laboratory Results: Results Past 24 Hours Test 01/07/18 04:59 Range/Units White Blood Count 9.13 4.8-10.8 K/uL Red Blood Count 3.71 4.7-6.1 M/uL Hemoglobin 11.0 14.0-18.0 g/dL Hematocrit 33.0 42-52 % Mean Corpuscular Volume 88.9 80-100 fL Mean Corpuscular Hemoglobin 29.6 25-34 pg Mean Corpuscular Hemoglobin Concent 33.3 32-36 g/dl RDW Standard Deviation 42.9 36.4-46.3 fL RDW Coefficient of Variation 13.4 11.5-14.5 % Platelet Count 358 130-400 K/uL Mean Platelet Volume 8.9 7.4-10.4 fL Sodium Level 140 136-145 mmol/L Potassium Level 3.6 3.5-5.1 mmol/L Chloride Level 109 98-107 mmol/L Carbon Dioxide Level 25 21-32 mmol/L Anion Gap 6.0 3-11 mmol/L Blood Urea Nitrogen 17 7-18 mg/dl Creatinine 0.82 0.60-1.40 mg/dl Est Creatinine Clear Calc Drug Dose 78.5 ml/min Estimated GFR () 101.7 Estimated GFR (Non- 87.7 BUN/Creatinine Ratio 20.4 10-20 Random Glucose 97 70-99 mg/dl Calcium Level 8.2 8.5-10.1 mg/dl Assessment & Plan Partial SBO s/p ex lap, sigmoid resection with end colostomy - vitals stable, afebrile, no leukocytosis - abdominal pain resolved - feeling less bloated, KUB this am still showing persistent SB dilatation at 3.8 cm - + ostomy output - NGT had some coffee ground output and some blood in ostomy this am per Dr. Escalante Plan: NGT discontinue, diet advanced to clear liquids Continue IV Protonix BID Hold Lovenox for today, Restart tomorrow , decrease to 30 mg SQ daily Continue IV Fluids, IV Pain management prn, IV Zofran prn OOB to chair and ambulation highly encouraged repeat am labs continue medical management If patient develops any nausea, vomiting, increase abdominal distention advised to revert back to NPO and may require replacement of NGT. Patient understood. IV abx stopped today. Repeat am labs or abdominal pain. IF any increase in WBC may warrant repeat CT scan to evaluate RLQ fluid collection (patient did have appendectomy during his sigmoid resection to rule out abscess vs seroma vs hematoma) Dr. Escalante has seen and examined pt, agrees with above
[2018-01-07] MEDS ORDERED: PANTOprazole INJ 40 MG in SYRINGE 0 ML IV SCH (11:00)
--- NOTE | 2018-01-07 14:21 | Family Medicine Progress Note ---
Progress Note Date of Service January 07, 2018. Subjective Pt is resting comfortably in chair, NG tube has been removed. Pt is tolerating clear liquids, broth this morning. Denies nausea/emesis/bloating. Per pt small amount of blood was visualized in ostomy bag by nursing/surgery service, so lovenox has been dc'ed for today and dosage adjusted. Hgb is stable 11.0. Does not report lightheadedness or dizziness. ROS See HPI for pertinent positives and negatives. Objective Physical Exam Notes: GENERAL: Awake, alert, in no distress. HENT: Normocephalic, atraumatic. EYES: Normal conjunctiva. Sclera non-icteric. NECK: Supple. FROM. RESPIRATORY: Clear to auscultation. CARDIAC: Regular rate, normal rhythm. Extremities warm and well perfused. Pulses equal. ABDOMEN: No rebound or guarding. Colostomy in tact, no visible blood, normal contents. Midline surgical scar in tact. LOWER EXTREMITIES: Calves are equal size bilaterally and non-tender. No edema. No discoloration. NEURO: No motor deficits noted. SKIN: No rash or jaundice noted. Assessment and Plan 72yo male with HTN, HLP, s/p exploratory laparotomy, sigmoid resection with end ostomy placement, appendectomy presenting with high grade bowel obstruction. 1. Bowel obstruction - no evidence of perforation/free air or fluid on CT. - CT abd/pelv 01/04/18: proximal to mid small bowel loops distended and filled with gas and fluid - measuring up to 4.7 cm in diameter, high-grade small bowel obstruction. also evidence of fluid-filled structure within the right side of the abdomen which could represent a seroma/hematoma/or possibly a developing abscess. - NGT removed per gen surg - tolerating clear liquids. No longer on IVF. - If patient develops any nausea, vomiting, increase abdominal distention advised to revert back to NPO and may require replacement of NGT. Patient understood. IF any increase in WBC may warrant repeat CT scan to evaluate RLQ fluid collection (patient did have appendectomy during his sigmoid resection to rule out abscess vs seroma vs hematoma) - Repeat KUB 01/07 shows improvement in distention. - Monitor electrolytes and replete as needed - Zosyn DCed - Zofran PRN for nausea - Morphine PRN for pain control - adequate - Serial abdominal exam q shift - + ostomy output - lovenox stopped today due to question of blood in ostomy bag per nursing. Lovenox dose will restart 01/08 at decreased dose to 30mg 2. HTN - Restart Lisinopril 10mg - Stable. 3. HLD - stable - Continue to hold Lipitor 10mg for now Ppx - Lovenox for DVT prophylaxis - held today as above. Code - Full Dispo - Med/surg Current Inpatient Medications Medications (Trade) Dose Ordered Sig/Jillian Route Start Time Stop Time Status Last Admin Dose Admin Ioversol (Optiray 320) 93 ml UD PRN IV 01/05/18 00:00 01/09/18 00:00 Ondansetron HCl (Zofran Inj) 4 mg Q6H PRN IV 01/05/18 01:00 02/04/18 00:59 01/05/18 04:12 4 MG Morphine Sulfate (MoRPHine SULFATE INJ) 2 mg Q6H PRN IV 01/05/18 01:45 01/19/18 01:44 01/05/18 03:08 2 MG Sodium Chloride 1,000 ml @ 100 mls/hr Q10H IV 01/05/18 20:45 02/04/18 20:44 01/07/18 11:06 100 MLS/HR Lisinopril (Zestril Tab) 10 mg QAM PO 01/07/18 09:00 02/06/18 08:59 01/07/18 09:27 10 MG Pantoprazole Sodium 40 mg/ Syringe 10 ml @ 5 mls/min BID@0900,2100 IV 01/07/18 09:00 02/06/18 08:59 01/07/18 09:27 5 MLS/MIN Enoxaparin Sodium (Lovenox Inj) 30 mg Q24H SQ 01/07/18 09:00 02/04/18 08:59 Future hold Date Time Temp Pulse Resp B/P (MAP) Pulse Ox O2 Delivery O2 Flow Rate FiO2 01/07/18 07:45 Room Air 01/07/18 07:32 37.0 71 16 146/71 (96) 97 Room Air 01/06/18 23:20 37.4 80 18 153/75 (101) 96 Room Air 01/06/18 23:15 Room Air 01/06/18 16:34 156/81 (106) 01/06/18 15:50 Room Air 01/06/18 15:47 37.3 83 17 169/83 (111) 95 Room Air 01/07/18 04:59 01/07/18 04:59 Test 01/07/18 04:59 Red Blood Count 3.71 M/uL (4.7-6.1) Mean Corpuscular Volume 88.9 fL (80-100) Mean Corpuscular Hemoglobin 29.6 pg (25-34) Mean Corpuscular Hemoglobin Concent 33.3 g/dl (32-36) RDW Standard Deviation 42.9 fL (36.4-46.3) RDW Coefficient of Variation 13.4 % (11.5-14.5) Mean Platelet Volume 8.9 fL (7.4-10.4) Anion Gap 6.0 mmol/L (3-11) Est Creatinine Clear Calc Drug Dose 78.5 ml/min Estimated GFR () 101.7 Estimated GFR (Non- 87.7 BUN/Creatinine Ratio 20.4 (10-20) Calcium Level 8.2 mg/dl (8.5-10.1) Continued [facility] stay due to: inadequate oral pain control Discharge planning: home with home health Resident Tracking Resident Involvement: Resident Care Provided Care Provided: Adult Hospital Medicine Reviewed: Pt Seen/Exam by Me History off NGT. tolerated oral intake well. Constitutional: denies: fever Respiratory: negative: short of breath Cardiovascular: denies chest pain General Appearance: no apparent distress Respiratory: lungs clear, no respiratory distress Cardiovascular: regular rate, rhythm Gastrointestinal: normal bowel sounds, non tender, soft Neurologic/Psychiatric: alert, oriented x 3 Skin Characteristics: warm/dry Assessment/Plan Resident Physician Supervision Note: I independently interviewed and examined the patient and verified the cutler history and physical, reviewed labs and image studies, discussed the case with the resident Dr. Morton and agree with the findings and care plan.
[2018-01-07 15:05] VITALS: BP 132/71; PULSE 71; TEMP 36.8; O2SAT 98
[2018-01-07 23:17] VITALS: BP 136/74; PULSE 65; TEMP 36.8; O2SAT 97
[2018-01-08] MEDS: SODIUM CHLORIDE 0.9% 1000ML 1,000 ML IV SCH (05:32)
[2018-01-08 06:38] LABS: BASO % 0.5 %; BASO ABS # 0.03 K/uL (0-0.2); EOS % 6.7 %; EOS ABS # 0.44 K/uL (0-0.5); HEMATOCRIT 30.7 % (42-52); IG# 0.01 K/uL (0.00-0.02); LYMPH % 23.5 %; LYMPH ABS # 1.54 K/uL (1.2-3.4); MEAN CORPUSCULAR HEMOGLOBIN 29.3 pg (25-34); MEAN CORPUSCULAR HGB CONC 32.6 g/dl (32-36); MONO % 8.7 %; MONO ABS # 0.57 K/uL (0.11-0.59); NEUT % 60.4 %; NEUT ABS # 3.96 K/uL (1.4-6.5); PLATELET COUNT 325 K/uL (130-400); RED CELL DISTRIBUTION WIDTH CV 13.7 % (11.5-14.5); WHITE BLOOD COUNT 6.55 K/uL (4.8-10.8)
[2018-01-08 06:58] LABS: CALCIUM 7.6 mg/dl (8.5-10.1); CREATININE 0.74 mg/dl (0.60-1.40); POTASSIUM 3.4 mmol/L (3.5-5.1)
--- NOTE | 2018-01-08 07:28 | Surgery Progress Note ---
Surgery Progress Note Date of Service January 08, 2018. Subjective Post OP Day: HD #3 + feeling well, + complaints (Having some tingling discomfort with movement in right inguinal area.), + bowel movement (+ostomy output), + flatus, + pain controlled, + diet (Tolerating clears), No nausea, No vomiting patient does have some numbness/tingling in his right inguinal area with movement. Objective Vital Signs: Date Time Temp Pulse Resp B/P (MAP) Pulse Ox O2 Delivery O2 Flow Rate FiO2 01/07/18 23:17 36.8 65 14 136/74 (94) 97 Room Air 01/07/18 23:15 Room Air 01/07/18 15:50 Room Air 01/07/18 15:05 36.8 71 18 132/71 (91) 98 Room Air 01/07/18 07:45 Room Air 01/07/18 07:32 37.0 71 16 146/71 (96) 97 Room Air General Appearance: WD/WN, no apparent distress Head: normocephalic, atraumatic Respiratory/Chest: no respiratory distress, no accessory muscle use Abdomen: soft, no organomegaly, + distended (Mild), + tenderness (Incisional), + pertinent finding (Ostomy site pink, patent, productive with liquid stool in bag. ) Incision(s): clean, dry, intact, no erythema, no drainage Laboratory Results: Results Past 24 Hours Test 01/08/18 06:25 Range/Units White Blood Count 6.55 4.8-10.8 K/uL Red Blood Count 3.41 4.7-6.1 M/uL Hemoglobin 10.0 14.0-18.0 g/dL Hematocrit 30.7 42-52 % Mean Corpuscular Volume 90.0 80-100 fL Mean Corpuscular Hemoglobin 29.3 25-34 pg Mean Corpuscular Hemoglobin Concent 32.6 32-36 g/dl Platelet Count 325 130-400 K/uL Mean Platelet Volume 9.0 7.4-10.4 fL Neutrophils (%) (Auto) 60.4 % Lymphocytes (%) (Auto) 23.5 % Monocytes (%) (Auto) 8.7 % Eosinophils (%) (Auto) 6.7 % Basophils (%) (Auto) 0.5 % Neutrophils # (Auto) 3.96 1.4-6.5 K/uL Lymphocytes # (Auto) 1.54 1.2-3.4 K/uL Monocytes # (Auto) 0.57 0.11-0.59 K/uL Eosinophils # (Auto) 0.44 0-0.5 K/uL Basophils # (Auto) 0.03 0-0.2 K/uL RDW Standard Deviation 45.0 36.4-46.3 fL RDW Coefficient of Variation 13.7 11.5-14.5 % Immature Granulocyte % (Auto) 0.2 % Immature Granulocyte # (Auto) 0.01 0.00-0.02 K/uL Sodium Level 143 136-145 mmol/L Potassium Level 3.4 3.5-5.1 mmol/L Chloride Level 112 98-107 mmol/L Carbon Dioxide Level 25 21-32 mmol/L Anion Gap 6.0 3-11 mmol/L Blood Urea Nitrogen 15 7-18 mg/dl Creatinine 0.74 0.60-1.40 mg/dl Est Creatinine Clear Calc Drug Dose 87.0 ml/min Estimated GFR () 106.1 Estimated GFR (Non- 91.5 BUN/Creatinine Ratio 20.0 10-20 Random Glucose 90 70-99 mg/dl Calcium Level 7.6 8.5-10.1 mg/dl Assessment & Plan HD #3 PSBO s/p ex lap, sigmoid resection with end colostomy with Dr. Escalante on . Covering for [facility] general surgery. KUB yesterday shows persistent small bowel dilatation at 3.8 cm. Minimal abdominal pain, abdomen soft, mildly-distended. +ostomy output. Tolerating clears, no N/V. Continue clears for breakfast, may advance diet later today if he continues to do well. WBC WNL this am. - no signs of infection, abscess, seroma or hematoma at this time. SQ lovenox restarted today at 30mg SQ daily. Continue current medical management. Will discuss findings with Dr. Chapman. Please contact with questions or concerns. 01/08/18 as above doing great. no n/v since ngt and has tolerated 4 trays of liquids. "hungry" will advance diet slowly no acute surgical issues. stoma functioning.
[2018-01-08 07:56] VITALS: BP 148/77; PULSE 65; TEMP 36.8; O2SAT 96
[2018-01-08] MEDS: LISINOPRIL 10 MG TAB PO SCH (08:54)
[2018-01-08] MEDS: PANTOprazole INJ 40 MG in SYRINGE 0 ML IV SCH ×2 (08:54→20:59)
[2018-01-08] MEDS: ENOXAPARIN 30 MG/0.3 ML SYR SQ SCH (09:43)
[2018-01-08] MEDS ORDERED: NURSING VERBAL MED ORDER ONE (14:00)
[2018-01-08 15:05] VITALS: BP 129/71; PULSE 68; TEMP 36.5; O2SAT 98
[2018-01-08 16:00] VITALS: O2SAT 98
--- NOTE | 2018-01-08 16:32 | Family Medicine Progress Note ---
Progress Note Date of Service January 08, 2018. Subjective Pt is resting comfortably in chair during interview. Is tolerating clears, denies nausea vomiting. Ostomy output continues, denies any sabas blood in ostomy bag. ROS See HPI for pertinent positives and negatives. Objective Physical Exam Notes: GENERAL: Awake, alert, in no distress. HENT: Normocephalic, atraumatic. EYES: Normal conjunctiva. Sclera non-icteric. NECK: Supple. FROM. RESPIRATORY: Clear to auscultation. CARDIAC: Regular rate, normal rhythm. Extremities warm and well perfused. Pulses equal. ABDOMEN: No rebound or guarding. Colostomy in tact, no visible blood, normal contents. Midline surgical scar in tact. LOWER EXTREMITIES: Calves are equal size bilaterally and non-tender. No edema. No discoloration. NEURO: No motor deficits noted. SKIN: No rash or jaundice noted. Assessment and Plan 72yo male with HTN, HLP, s/p exploratory laparotomy, sigmoid resection with end ostomy placement, appendectomy presenting with high grade bowel obstruction. 1. Bowel obstruction - no evidence of perforation/free air or fluid on CT. - CT abd/pelv 01/04/18: proximal to mid small bowel loops distended and filled with gas and fluid - measuring up to 4.7 cm in diameter, high-grade small bowel obstruction. also evidence of fluid-filled structure within the right side of the abdomen which could represent a seroma/hematoma/or possibly a developing abscess. - NGT removed per gen surg - tolerating clear liquids. No longer on IVF. - If patient develops any nausea, vomiting, increase abdominal distention advised to revert back to NPO and may require replacement of NGT. Patient understood. IF any increase in WBC may warrant repeat CT scan to evaluate RLQ fluid collection (patient did have appendectomy during his sigmoid resection to rule out abscess vs seroma vs hematoma) - Repeat KUB 01/07 showed improvement in distention. - Monitor electrolytes and replete as needed - Zosyn DCed - Zofran PRN for nausea - Morphine PRN for pain control - has not needed. - Serial abdominal exam q shift - + ostomy output no sabas blood. 2. HTN - Restart Lisinopril 10mg - Stable. 3. HLD - stable - Continue to hold Lipitor 10mg for now Ppx - Lovenox Code - Full Dispo - Med/surg Current Inpatient Medications Medications (Trade) Dose Ordered Sig/Jillian Route Start Time Stop Time Status Last Admin Dose Admin Ioversol (Optiray 320) 93 ml UD PRN IV 01/05/18 00:00 01/09/18 00:00 Ondansetron HCl (Zofran Inj) 4 mg Q6H PRN IV 01/05/18 01:00 02/04/18 00:59 01/05/18 04:12 4 MG Morphine Sulfate (MoRPHine SULFATE INJ) 2 mg Q6H PRN IV 01/05/18 01:45 01/19/18 01:44 01/05/18 03:08 2 MG Lisinopril (Zestril Tab) 10 mg QAM PO 01/07/18 09:00 02/06/18 08:59 01/08/18 08:54 10 MG Pantoprazole Sodium 40 mg/ Syringe 10 ml @ 5 mls/min BID@0900,2100 IV 01/07/18 09:00 02/06/18 08:59 01/08/18 08:54 5 MLS/MIN Enoxaparin Sodium (Lovenox Inj) 30 mg Q24H SQ 01/07/18 09:00 02/04/18 08:59 Future hold 01/08/18 09:43 30 MG Date Time Temp Pulse Resp B/P (MAP) Pulse Ox O2 Delivery O2 Flow Rate FiO2 01/08/18 15:05 36.5 68 16 129/71 (90) 98 Room Air 01/08/18 07:56 36.8 65 15 148/77 (100) 96 Room Air 01/08/18 07:45 Room Air 01/07/18 23:17 36.8 65 14 136/74 (94) 97 Room Air 01/07/18 23:15 Room Air 01/08/18 06:25 Red Blood Count 3.41, Mean Corpuscular Volume 90.0, Mean Corpuscular Hemoglobin 29.3, Mean Corpuscular Hemoglobin Concent 32.6, Mean Platelet Volume 9.0, Neutrophils (%) (Auto) 60.4, Lymphocytes (%) (Auto) 23.5, Monocytes (%) (Auto) 8.7, Eosinophils (%) (Auto) 6.7, Basophils (%) (Auto) 0.5, Neutrophils # (Auto) 3.96, Lymphocytes # (Auto) 1.54, Monocytes # (Auto) 0.57, Eosinophils # (Auto) 0.44, Basophils # (Auto) 0.03 01/08/18 06:25 Test 01/08/18 06:25 White Blood Count 6.55 K/uL (4.8-10.8) Red Blood Count 3.41 M/uL (4.7-6.1) Hemoglobin 10.0 g/dL (14.0-18.0) Hematocrit 30.7 % (42-52) Mean Corpuscular Volume 90.0 fL (80-100) Mean Corpuscular Hemoglobin 29.3 pg (25-34) Mean Corpuscular Hemoglobin Concent 32.6 g/dl (32-36) Platelet Count 325 K/uL (130-400) Mean Platelet Volume 9.0 fL (7.4-10.4) Neutrophils (%) (Auto) 60.4 % Lymphocytes (%) (Auto) 23.5 % Monocytes (%) (Auto) 8.7 % Eosinophils (%) (Auto) 6.7 % Basophils (%) (Auto) 0.5 % Neutrophils # (Auto) 3.96 K/uL (1.4-6.5) Lymphocytes # (Auto) 1.54 K/uL (1.2-3.4) Monocytes # (Auto) 0.57 K/uL (0.11-0.59) Eosinophils # (Auto) 0.44 K/uL (0-0.5) Basophils # (Auto) 0.03 K/uL (0-0.2) RDW Standard Deviation 45.0 fL (36.4-46.3) RDW Coefficient of Variation 13.7 % (11.5-14.5) Immature Granulocyte % (Auto) 0.2 % Immature Granulocyte # (Auto) 0.01 K/uL (0.00-0.02) Anion Gap 6.0 mmol/L (3-11) Est Creatinine Clear Calc Drug Dose 87.0 ml/min Estimated GFR () 106.1 Estimated GFR (Non- 91.5 BUN/Creatinine Ratio 20.0 (10-20) Calcium Level 7.6 mg/dl (8.5-10.1) Continued [facility] stay due to: other Discharge planning: home Resident Tracking Resident Involvement: Resident Care Provided Care Provided: Adult Hospital Medicine Reviewed: Pt Seen/Exam by Me History diet advanced to full liquid. denies any concerns Constitutional: denies: fever Respiratory: negative: short of breath Cardiovascular: denies chest pain General Appearance: no apparent distress Respiratory: lungs clear, no respiratory distress Cardiovascular: regular rate, rhythm Neurologic/Psychiatric: alert, oriented x 3 Skin Characteristics: warm/dry Assessment/Plan Resident Physician Supervision Note: I independently interviewed and examined the patient and verified the cutler history and physical, reviewed labs and image studies, discussed the case with the resident Dr. Morton and agree with the findings and care plan.
[2018-01-08 23:33] VITALS: BP 148/80; PULSE 62; TEMP 36.6; O2SAT 96
[2018-01-09 07:26] VITALS: BP 159/76; PULSE 65; TEMP 36.5; O2SAT 95
--- NOTE | 2018-01-09 07:30 | Surgery Progress Note ---
Surgery Progress Note Date of Service January 09, 2018. Subjective Post OP Day: HD #4 + feeling well, + bowel movement (+ostomy output), + flatus, + pain controlled, + diet (Tolerating full liquids), No complaints, No nausea, No vomiting Objective Vital Signs: Date Time Temp Pulse Resp B/P (MAP) Pulse Ox O2 Delivery O2 Flow Rate FiO2 01/09/18 00:09 Room Air 01/08/18 23:33 36.6 62 14 148/80 (102) 96 Room Air 01/08/18 16:00 98 Room Air 01/08/18 15:05 36.5 68 16 129/71 (90) 98 Room Air 01/08/18 07:56 36.8 65 15 148/77 (100) 96 Room Air 01/08/18 07:45 Room Air General Appearance: WD/WN, no apparent distress Head: normocephalic, atraumatic Respiratory/Chest: no respiratory distress, no accessory muscle use Abdomen: non distended, soft, no organomegaly, + tenderness (Mild incisional) Incision(s): clean, dry, intact Assessment & Plan HD #4 PSBO s/p ex lap, sigmoid resection with end colostomy with Dr. Escalante on . Covering for [facility]. Abdomen soft, non-distended. +ostomy output. Tolerating full liquids, No N/V. Continue full liquids this AM - possibly advance later today but taking things slow. Continue current medical management. Please contact with questions or concerns. HD #3 PSBO s/p ex lap, sigmoid resection with end colostomy with Dr. Escalante on . Covering for [facility]. KUB yesterday shows persistent small bowel dilatation at 3.8 cm. Minimal abdominal pain, abdomen soft, mildly-distended. +ostomy output. Tolerating clears, no N/V. Continue clears for breakfast, may advance diet later today if he continues to do well. WBC WNL this am. - no signs of infection, abscess, seroma or hematoma at this time. SQ lovenox restarted today at 30mg SQ daily. Continue current medical management. Will discuss findings with Dr. Chapman. Please contact with questions or concerns.
[2018-01-09] MEDS: LISINOPRIL 10 MG TAB PO SCH (09:10)
[2018-01-09] MEDS: PANTOprazole INJ 40 MG in SYRINGE 0 ML IV SCH ×2 (09:10→20:49)
[2018-01-09] MEDS: ENOXAPARIN 30 MG/0.3 ML SYR SQ SCH (09:11)
--- NOTE | 2018-01-09 13:38 | Family Medicine Progress Note ---
Progress Note Date of Service January 09, 2018. Subjective Pt is resting comfortably in chair during interview. Is tolerating full liquid diet, denies nausea vomiting or bloating or abdominal pain. Hesitant to begin full diet as of yet, however doing well clinically. Ostomy output continues, denies any sabas blood in ostomy bag. ROS See HPI for pertinent positives and negatives. Objective Physical Exam Notes: GENERAL: Awake, alert, in no distress. HENT: Normocephalic, atraumatic. EYES: Normal conjunctiva. Sclera non-icteric. NECK: Supple. FROM. RESPIRATORY: Clear to auscultation. CARDIAC: Regular rate, normal rhythm. Extremities warm and well perfused. Pulses equal. ABDOMEN: No rebound or guarding. Colostomy in tact, no visible blood in bag, normal contents. Midline surgical scar in tact. LOWER EXTREMITIES: Calves are equal size bilaterally and non-tender. No edema. No discoloration. NEURO: No motor deficits noted. SKIN: No rash or jaundice noted. Assessment and Plan 72yo male with HTN, HLP, s/p exploratory laparotomy, sigmoid resection with end ostomy placement, appendectomy presenting with high grade bowel obstruction. 1. Bowel obstruction - no evidence of perforation/free air or fluid on CT. - CT abd/pelv 01/04/18: proximal to mid small bowel loops distended and filled with gas and fluid - measuring up to 4.7 cm in diameter, high-grade small bowel obstruction. also evidence of fluid-filled structure within the right side of the abdomen which could represent a seroma/hematoma/or possibly a developing abscess. - NGT removed per gen surg - tolerating advanced diet. No longer on IVF. - Repeat KUB 01/07 showed improvement in distention. - Monitor electrolytes and replete as needed - Zosyn DCed - Zofran PRN for nausea - Morphine PRN for pain control - has not needed. - + ostomy output no sabas blood. 2. HTN - Restart Lisinopril 10mg - Stable. 3. HLD - stable - Restart Lipitor 10mg 01/10 Ppx - Lovenox Code - Full Dispo - Med/surg. Likely DC home soon. Continued [facility] stay due to: multiple IV medications needed Discharge planning: home Resident Tracking Resident Involvement: Resident Care Provided Care Provided: Adult Hospital Medicine Reviewed: Pt Seen/Exam by Me History no new concerns tolerated full liquid well Constitutional: denies: fever Respiratory: negative: short of breath Cardiovascular: denies chest pain General Appearance: no apparent distress Respiratory: lungs clear, no respiratory distress Cardiovascular: regular rate, rhythm Gastrointestinal: soft Neurologic/Psychiatric: alert, oriented x 3 Assessment/Plan Resident Physician Supervision Note: I independently interviewed and examined the patient and verified the cutler history and physical, reviewed labs and image studies, discussed the case with the resident Dr. Morton and agree with the findings and care plan.
[2018-01-09 15:53] VITALS: BP 151/81; PULSE 68; TEMP 37; O2SAT 98
[2018-01-09 22:50] VITALS: BP 148/77; PULSE 66; TEMP 37; O2SAT 98
[2018-01-10 06:01] LABS: BASO % 0.5 %; BASO ABS # 0.03 K/uL (0-0.2); EOS % 10.5 %; EOS ABS # 0.58 K/uL (0-0.5); HEMATOCRIT 31.3 % (42-52); HEMOGLOBIN 10.4 g/dL (14.0-18.0); IG# 0.02 K/uL (0.00-0.02); LYMPH % 28.3 %; LYMPH ABS # 1.57 K/uL (1.2-3.4); MEAN CELL VOLUME 87.2 fL (80-100); MEAN CORPUSCULAR HGB CONC 33.2 g/dl (32-36); MEAN PLATELET VOLUME 9.2 fL (7.4-10.4); MONO % 8.3 %; MONO ABS # 0.46 K/uL (0.11-0.59); NEUT ABS # 2.88 K/uL (1.4-6.5); PLATELET COUNT 312 K/uL (130-400); RED CELL DISTRIBUTION WIDTH CV 13.5 % (11.5-14.5); RED CELL DISTRIBUTION WIDTH SD 43.7 fL (36.4-46.3); WHITE BLOOD COUNT 5.54 K/uL (4.8-10.8)
[2018-01-10 06:25] LABS: CALCIUM 8.3 mg/dl (8.5-10.1); CREATININE 0.82 mg/dl (0.60-1.40); POTASSIUM 3.3 mmol/L (3.5-5.1)
[2018-01-10 07:43] VITALS: BP 150/84; PULSE 63; TEMP 36.7; O2SAT 96
[2018-01-10 08:44] VITALS: BP 156/80
[2018-01-10] MEDS: PANTOprazole INJ 40 MG in SYRINGE 0 ML IV SCH (08:45)
[2018-01-10] MEDS: ENOXAPARIN 30 MG/0.3 ML SYR SQ SCH (08:45)
[2018-01-10] MEDS: LISINOPRIL 10 MG TAB PO SCH (08:45)
[2018-01-10] MEDS ORDERED: POTASSIUM CHLORIDE 20 MEQ TABCR PO STA (08:46)
[2018-01-10] MEDS ORDERED: ATORVASTATIN 10 MG TAB PO SCH (09:00)
--- NOTE | 2018-01-10 11:39 | Discharge Instructions ---
Discharge Instructions Date of Service January 10, 2018. Admission Reason for Admission: Bowel Obstruction Discharge Discharge Diagnosis / Problem: Small Bowel Obstruction Discharge Goals Goal(s): Decrease discomfort, Diagnostic testing, Therapeutic intervention Activity Recommendations Activity Limitations: resume your previous activity . Instructions / Follow-Up Instructions / Follow-Up Mr. Butts you were admitted for abdominal pain, nausea and vomiting in the setting of recent abdominal surgery and found to have obstruction of your small bowels which improved after conservative management. You were discharged after you tolerated an advanced diet with improved bowel movement and lack of abdominal pain or nausea/vomiting. Please follow the following instructions upon discharge: -follow up with surgery as recommended for staple removal and ongoing care -follow up with your primary care doctor in 1-2 days -continue your home medications prior to hospitalization as prescribed -return to your doctor or go to the nearest emergency room/call 911 if you have worsening abdominal pain, wound drainage, nausea/vomiting or decreased/lack of ostomy output Current Hospital Diet Patient's current hospital diet: Low Fiber Diet Discharge Diet Recommended Diet: AHA Diet (Heart Healthy) Pending Studies Studies pending at discharge: no Medical Emergencies . Who to Call and When: Medical Emergencies: If at any time you feel your situation is an emergency, please call 911 immediately. . Non-Emergent Contact Non-Emergency issues call your: Primary Care Provider Call Non-Emergent contact if: temperature is above 101, your pain is worsening , wound has increased drainage, wound has increased redness, wound has increased pain . . "Provider Documentation" section prepared by Antionette Thorne. .
--- NOTE | 2018-01-10 11:50 | Discharge Summary ---
Discharge Summary Date of Service January 10, 2018. Discharge Summary Admission Date: January 05, 2018 at 01:11 Discharge Date: January 10, 2018 Discharge Disposition: Home Principal Diagnosis: Small bowel obstruction Problems/Secondary Diagnoses: HTN, HLD Immunizations: Have You Had Influenza Vaccine: N/A Influenza Vaccine Date: Jun 06, 2010 History of Tetanus Vaccine?: Unknown History of Pneumococcal: Yes Pneumococcal Date: May 26, 2012 History of Hepatitis B Vaccine: Unknown Procedures: KUB 01/07/2018 CLINICAL HISTORY: Small bowel obstruction COMPARISON STUDY: 01/05/2018 FINDINGS: The nasogastric tube has been removed. There is a left lower quadrant ostomy. There are midline skin kaelyn. There is persistent mild small bowel dilatation with small bowel loops measuring up to 38 mm. There is a small amount of colonic gas present. IMPRESSION: 1. Persistent small bowel dilatation with small bowel loops measuring up to 38 mm 2. Interval removal of the nasogastric tube KUB 01/05 HISTORY: Follow-up study in a patient with small bowel obstruction. Recent colectomy. bowel obstruction COMPARISON: CT abdomen and pelvis 01/04/2018 FINDINGS: Multiple dilated loops of air-filled small bowel are seen throughout the abdomen measuring up to 3.8 cm transversely. No pneumatosis or pneumoperitoneum. Midline skin kaelyn are noted from prior laparotomy changes. Surgical suture material projects over the central pelvis. Multiple scattered punctate radiodensities throughout the abdomen suggest areas of retained oral contrast. The degree of small bowel dilation appears unchanged from CT study of 01/04/2018. Enteric tube has been placed with distal tip terminating near the gastroesophageal junction. No renal calculi. No ureteral calculi. No pneumoperitoneum or pneumatosis. No fracture. Degenerative changes of the spine and hips. IMPRESSION: 1. Status post placement of an enteric tube with distal tip projecting within the region of the gastroesophageal junction. 2. Persistent dilated loops of small bowel throughout the abdomen with evidence of prior laparotomy. These findings suggest postsurgical ileus or small bowel obstruction. 3. No pneumoperitoneum or pneumatosis identified. ABDOMEN AND PELVIS CT WITH IV CONTRAST 01/05 CT DOSE: 308.17 mGy.cm HISTORY: Generalized abdominal pain. Nausea. Vomiting.. Recent colectomy s/p perf diverticulitis TECHNIQUE: Multiaxial CT images of the abdomen and pelvis were performed following the use of intravenous contrast. A dose lowering technique was utilized adhering to the principles of ALARA. COMPARISON STUDY: Abdomen and pelvis CT 12/18/2017. FINDINGS: Bibasilar linear densities consistent with subsegmental atelectasis. No pneumoperitoneum. No pneumatosis. No suspicious lytic or blastic osseous lesions. Stable hypodense lesions within the left hepatic lobe and kidneys. These likely represent cysts. No hydronephrosis. The pancreas, spleen, adrenal glands, and gallbladder are unremarkable. No retroperitoneal lymphadenopathy. 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 This remains unchanged. The bladder is unremarkable. Small amount of pelvic fluid anteriorly. There has been interval left lower quadrant colostomy. A few scattered colonic diverticula are noted. The majority of the colon and distal small bowel are decompressed. The proximal to mid small bowel loops are distended and filled with gas and fluid. These measure up to 4.7 cm in diameter. There appears to be focal narrowing of the small bowel within the mid abdomen best seen on image 232 of 446. This corresponds to the transition point for the high-grade small bowel obstruction. There is a fluid-filled structure within the right side of the abdomen which is seen on images 254 through 313. The contents are slightly hyperdense and there is an associated enhancing wall. This could represent a distorted loop of small bowel or a separate extraluminal fluid collection. This measures up to 7.2 cm in length and 4.1 cm in thickness. There is no gas within this collection. Therefore, could represent a postoperative seroma, hematoma, or possibly a developing abscess. There are midline skin kaelyn present. IMPRESSION: 1. High-grade small bowel obstruction with the transition point in the mid abdomen. This could be due to an adhesion or internal hernia. 2. Postoperative changes with associated left lower quadrant ostomy. 3. There is a fluid-filled structure within the right side of the abdomen as described above. The contents are slightly hyperdense and there is an associated enhancing wall. This could represent a distorted loop of small bowel or a separate extraluminal fluid collection. This measures up to 7.2 cm in length and 4.1 cm in thickness. There is no gas within this collection. Therefore, could represent a postoperative seroma, hematoma, or possibly a developing abscess. 4. Additional findings as described above. Consultations: Surgery Medication Reconciliation Continued Medications: Ascorbic Acid (Vitamin C) 500 Mg Tab 500 MG PO BID Atorvastatin (Lipitor) 10 Mg Tab 10 MG PO DAILY AT NOON, TAB Calcium/Vitamin D (Os-Scot 500 Plus D) Tab 1 TAB PO BID, TAB Fish Oil (Fargo-3) 1 Ea Cap 1 CAP PO QAM, CAP Lisinopril (Prinivil) 10 Mg Tab 10 MG PO DAILY AT NOON, TAB Multiple Vitamin (Multivitamin) 1 Tab Tab 1 TAB PO NOON, TAB Discharge Exam Review of Systems: Constitutional: No fever, No chills Respiratory: No shortness of breath Cardiovascular: No chest pain Abdomen: No pain, No nausea, No vomiting, No diarrhea Genitourinary - Male: No dysuria Physical Exam: General Appearance: no apparent distress Eyes: normal inspection Neck: supple Respiratory/Chest: lungs clear, normal breath sounds Cardiovascular: regular rate, rhythm, no murmur Abdomen / GI: normal bowel sounds, non tender, soft, + pertinent finding ( intact midline abdominal incision kaelyn; no surgical site erythema/drainage noted; LLQ ostomy site clean/dry/non-erythematous (bag full with yellowish formed output)) Extremities: normal inspection, no pedal edema Neurologic/Psychiatric: alert, normal mood/affect, oriented x 3 Hospital Course 72yo male with HTN, HLP, s/p exploratory laparotomy, sigmoid resection with end ostomy placement, and appendectomy in 12/19/17 presented with nausea/emesis and abdominal distension/pain. Pt was found to have high grade bowel obstruction. 1. Bowel obstruction - no evidence of perforation/free air or fluid on CT - improved with conservative management - CT abd/pelv 01/04/18: proximal to mid small bowel loops distended and filled with gas and fluid - measuring up to 4.7 cm in diameter, high-grade small bowel obstruction. also evidence of fluid-filled structure within the right side of the abdomen which could represent a seroma/hematoma/or possibly a developing abscess. - Repeat KUB 01/07 showed improvement in distention. - Gen surgery was consulted: NGT, IVF received, advanced diet slowly. - Received Zosyn - Received Zofran PRN for nausea - Received Morphine PRN for pain control (did not need since 01/05) - Exam improved; + ostomy output no sabas blood, improved in consistency 2. HTN - stable - Continued home Lisinopril 10mg 3. HLD - stable - Continued home Lipitor 10mg Ppx - Lovenox Code - Full Dispo - home Resident Physician Supervision Note: I interviewed and examined the patient. Discussed with Dr. Thorne and agree with findings and plan as documented in the note. Any exceptions or clarifications are listed here: None Documented By: Tree Simpson feeling better eating more vitals noted nad breathing unlabored abd soft nd nt no masses SBO - improved. stable for home - as above Total Time Spent: Greater than 30 minutes This includes examination of the patient, discharge planning, medication reconciliation, and communication with other providers. Discharge Instructions Please refer to the electronic Patient Visit Report (Discharge Instructions) for additional information. Additional Copies To Sabas Estrada M.D.
[2018-01-10 12:09] VITALS: BP 156/80; PULSE 63; TEMP 36.7; O2SAT 96
== END 2018-01-10 12:45 | disposition home health service (06) | DRG 390 ==
LOC: C.EDB 22:59 → C.MSW 01-05 01:11 → ENRESERV 01-05 02:11
PROVIDERS: ADMIT Internal Medicine; ATTEND Family Medicine
DX: K56.600 Partial intestinal obstruction, unspecified as to cause (principal); Z93.3 Colostomy status; E78.5 Hyperlipidemia, unspecified; I10 Essential (primary) hypertension; Z98.890 Other specified postprocedural states

== ENCOUNTER 2021-08-16 12:19 | Observation (INO) ==
[2021-08-16] MEDS ORDERED: LIDO/EPINEPHRINE/SOD BICARB 20 ML VIAL ONE (12:47)
[2021-08-16] MEDS ORDERED: TXA 10% Non-IV Routes 100 MG/ML VIAL TOP ONE (13:08)
--- NOTE | 2021-08-16 13:12 | Emergency Department Note ---
ED Visit Note I assisted Dr. Patel with repair of this patient's lip laceration. Examination reveals a complex laceration of the lower lip with arterial bleeding. Verbal consent was obtained to perform the procedure. 3 mL of 1% lidocaine with epinephrine was infiltrated into the wound to achieve local anesthesia. Once the wound was anesthetized, pressure was applied proximally to help control bleeding. Several 5-0 simple interrupted Vicryl sutures were used to achieve hemostasis. Patient tolerated the procedure well. TXA soaked gauze was then applied to the wound to help stop the minimal oozing bleeding which remained. Please see Dr. Patel's note for full ED course. .
[2021-08-16] MEDS ORDERED: DIPHTHERIA/TETANUS/PERTUSSIS 0.5 ML SYR/VIAL IM ONE (13:13)
[2021-08-16] MEDS ORDERED: AMPICILLIN/SULBACTAM SOD 3,000 MG in 0.9 % SODIUM CHLORIDE 100 ML IV STA (13:13)
--- NOTE | 2021-08-16 13:13 | Emergency Department Note ---
Impression & Plan Syncope, Face lacerations, Contusion of face ED Provider Note NAME: SONAM CLAYTON AGE: 76 SEX: M : 1945 ARRIVES VIA: Walk-In INFORMANT: Patient, the patient significant other ED PROVIDER(S): Alfredo Patel DO CHIEF COMPLAINT: Syncope HPI: The patient is a 76-year-old male who presented to emergency department with his significant other for an evaluation of syncope. The patient suffered a facial injury. He states he has been having episodes of near syncope ever since he had his flecainide dose changed at the beginning of this month. He denies having any vomiting. He has had no chest discomfort. He has had some palpitations. He states lately when he goes from a sitting to standing position he feels though he may pass out. The patient has been compliant with his usual medications. He also takes blood thinners for history of atrial tachycardia and atrial fibrillation. He has a large lip laceration. Has been putting pressure to the area with only minimal relief of his bleeding prior to arrival. He denies having any fevers or chills. He denies having any lower extremity swelling or pain. He said no abdominal pain. The patient describes epistaxis that resolved prior to arrival. ROS: See above HPI for pertinent positives & negatives. A total of 10 systems reviewed and were otherwise negative. PAST MEDICAL HISTORY: See Below PAST SURGICAL HISTORY: See Below FAMILY HISTORY: See Below SOCIAL HISTORY: See Below HOME MEDICATIONS: See Below ALLERGIES: See Below VITALS: See Below PHYSICAL EXAMINATION: GENERAL: The patient is awake and alert. He is very anxious appearing. EYES: The conjunctivae are clear. The pupils are round and reactive. EARS, NOSE, MOUTH AND THROAT: The nose is without any evidence of any deformity. The patient has a complex lower inner lip laceration with active bleeding noted. There was also a chipped upper front tooth. NECK: The neck is nontender and supple. RESPIRATORY: Normal respiratory effort is noted there is no evidence of wheezing rhonchi or rales CARDIOVASCULAR: Regular rate and rhythm noted there no murmurs rubs or gallops normal S1 normal S2. GASTROINTESTINAL: The abdomen is soft. Abdomen is nontender. MUSCULOSKELETAL/EXTREMITIES: There is no evidence of gross deformity full range of motion is noted in the hips and shoulders. SKIN: There is no obvious evidence of any rash. There are no petechiae, pallor or cyanosis noted. NEUROLOGIC: Patient is awake alert and oriented x3 strength is symmetric patellar reflexes are 2+ bilaterally MEDICAL DECISION MAKING: The patient is a 76-year-old male who presented to the emergency department for an evaluation after having a syncopal episode. The patient's had multiple episodes of syncope and near syncope over the last few weeks. He recently had increases to his cardiac medications. The patient felt today striking his face. He presented with a very complex lip laceration. The lip laceration was repaired by my physician compliance assistant Joyce Ceballos PA-C. Please see her note for formal procedure. Discussed the patient's laboratory and radiographic studies with him. His cardiac history and his degree of syncope I do reveal that he should remain in the hospital for inpatient management as well as monitoring. He may also need to have further evaluation of this facial laceration as well as to rule out labial artery injury. He does take an oral anticoagulant. This could be what caused the significant swelling in his lip. I discussed the patient's laboratory and radiographic studies with the on-call [facility] hospitalist. They have agreed to evaluate the patient in the emergency department. Triage Nursing notes reviewed. Prior medical records reviewed Vital Signs: reviewed and remarkable for elevated blood pressure and bradycardia. Differential diagnosis: Vasovagal event, dehydration, infection, hypoglycemia, electrolyte abnormalities, cardiac sources, intracerebral event, pulmonary embolism, seizur e, toxicologic, neurologic, as well as other pathologies. ER treatment provided: See below Diagnostics interpreted by me: ECG: EKG was obtained in the emergency department. My interpretation is sinus bradycardia 53 bpm. There is no ectopy. There was no acute ST segment abn ormalities noted. This was compared to a tracing from December 19, 2017. No changes were noted. Cardiac Monitoring: An order was placed for continuous cardiac monitoring. The monitor shows a rate of 57 bpm with sinus bradycardia. Laboratory studies: As stated above and show below. Imaging studies: See below Consultation(s): I discussed this case with Dr. Singh who is on-call for the [facility]. Past Med/Surg History Medical History Anastomotic ulcer Basal cell carcinoma (BCC) of abdomen removed in office Chronic osteoarthritis Diverticular disease Dyslipidemia Hydrocele Hyperglycemia Hypertension Male erectile disorder of organic origin Male stress incontinence Malignant neoplasm of prostate Osteoporosis PAF (paroxysmal atrial fibrillation) (~02/2021) Prostate cancer (~2012) followed by Urology Surgical History History of appendectomy History of bowel resection for perforated bowel History of colonoscopy Last 09/2018 no further screening recommended History of colostomy History of colostomy reversal 04/2018 History of evacuation of hematoma right lower leg History of left inguinal hernia repair History of prostate biopsy malignant History of prostatectomy (~2012) 2012 History of right inguinal hernia repair History of tonsillectomy and adenoidectomy History of wisdom tooth extraction Family History Father Leukemia Hypertension Mother Hypertension Brain tumor Sister Hypertension Other No family history of adverse response to anesthesia Social History Smoking Status: Never smoker Second Hand Exposure: No (father smoked); Hx Alcohol Use: Yes Alcohol type: beer Alcohol Intake Frequency: Monthly or Less Hx Substance Use: No Preferred Language: Frisian Communication Ability: Effective Visual Impairment: Limited Hearing Ability: Normal Mold Shifter Required: No Beliefs That Will Affect Care: None marital status: Current Living Situation: Spouse current occupational status: retired Feels Safe at Home: Yes Childhood Exposure to Second-Hand Smoke: Yes caffeine: No Dental Care, Regularly: Yes Physical Activity Frequency: Daily Physical Activity Frequency Comment: walk Seatbelt Use: always Sunscreen Use: Yes Do you think of yourself as: straight/heterosexual Assistive Devices: Contacts Allergies Allergies Allergy/AdvReac Type Severity Reaction Status Date / Time No Known Allergies Allergy Verified 08/16/21 15:55 Home Meds Home Medications Medication Instructions Recorded Confirmed apixaban 5 mg tablet (Eliquis) 5 mg PO BID 07/22/21 08/16/21 Collagen Peptides 1 dose PO QAM 08/16/21 08/16/21 ascorbic acid (vitamin C) 500 mg 500 mg PO BID 08/16/21 08/16/21 tablet (Vitamin C) atorvastatin 10 mg tablet 10 mg PO DAILY@1200 08/16/21 08/16/21 cholecalciferol (vitamin D3) 125 125 mcg PO DAILY@1200 08/16/21 08/16/21 mcg (5,000 unit) tablet (Vitamin D3) flecainide 100 mg tablet 100 mg PO BID 08/16/21 08/16/21 metoprolol succinate 25 mg 12.5 mg PO DAILY@1700 08/16/21 08/16/21 tablet,extended release 24 hr multivitamin 1 tab PO DAILY@1200 08/16/21 08/16/21 omega 3 350 mg-dha 235 mg-epa 90 1 cap PO QDD 08/16/21 08/16/21 mg-fish oil 597 mg capsule,delay rel ([place]-3) Previous Rx's Medication Instructions Recorded lisinopril 10 mg tablet 10 mg PO QAM #90 tab 04/14/21 Results & Data (ED) Vital Signs Vital Signs - 24 hr 08/16/21 12:28 08/16/21 13:35 08/16/21 13:44 Temperature 36.3 C L Temperature Source Temporal Artery Scan Pulse Rate 56 L 54 L Pulse Rate [Apical] Pulse Rhythm Regular Pulse Rhythm [Apical] Pulse Strength [Apical] Respiratory Rate 18 17 Respiratory Effort / Characteristics Non-Labored Spontaneous Respiratory Depth Normal Respiratory Pattern Regular Blood Pressure 201/99 H Blood Pressure [Right Arm] Blood Pressure Mean 133 Blood Pressure Mean [Right Arm] Blood Pressure Position Sitting Pulse Oximetry 99 96 Oxygen Delivery Method Room Air Room Air Room Air Sepsis Recent Fever Within 48 Hours No Sepsis New/Unexplained Change in Mental Status No Sepsis Action Taken by Nursing No Action Required Pulse Oximetry Post Tiitration 96 08/16/21 14:19 Temperature Temperature Source Pulse Rate Pulse Rate [Apical] 53 L Pulse Rhythm Pulse Rhythm [Apical] Regular Pulse Strength [Apical] Normal Respiratory Rate 17 Respiratory Effort / Characteristics Non-Labored Spontaneous Respiratory Depth Normal Respiratory Pattern Regular Blood Pressure Blood Pressure [Right Arm] 187/84 H Blood Pressure Mean Blood Pressure Mean [Right Arm] 118 Blood Pressure Position Pulse Oximetry 100 Oxygen Delivery Method Room Air Sepsis Recent Fever Within 48 Hours Sepsis New/Unexplained Change in Mental Status Sepsis Action Taken by Nursing Pulse Oximetry Post Tiitration Home Medications Current Medication List: was personally reviewed by me Laboratory Data Attestation: I reviewed the patient's lab results. Result diagrams: 08/16/21 12:51 08/16/21 12:51 Lab Results 08/16/21 08/16/21 08/16/21 Range/Units 12:51 12:51 12:51 WBC 10.92 H (4.8-10.8) K/uL RBC 5.10 (4.7-6.1) M/uL Hgb 16.0 (14.0-18.0) g/dL Hct 48.1 (42-52) % MCV 94.3 (80-100) fL MCH 31.4 (25-34) pg MCHC 33.3 (32-36) g/dL RDW Std Deviation 46.7 H (36.4-46.3) fL RDW Coeff of Zena 13.5 (11.5-14.5) % Plt Count 241 (130-400) K/uL MPV 11.0 H (7.4-10.4) fL Immature Gran % (Auto) 0.2 % Neut % (Auto) 82.4 % Lymph % (Auto) 10.0 % [place] % (Auto) 6.4 % Eos % (Auto) 0.8 % Baso % (Auto) 0.2 % Neut # (Auto) 9.00 H (1.4-6.5) K/uL Lymph # (Auto) 1.09 L (1.2-3.4) K/uL [place] # (Auto) 0.70 H (0.11-0.59) K/uL Eos # (Auto) 0.09 (0-0.5) K/uL Baso # (Auto) 0.02 (0-0.2) K/uL Immature Gran # (Auto) 0.02 (0.00-0.02) K/uL PT 10.2 (9.0-12.0) Seconds INR 1.0 (0.9-1.1) APTT 23.7 (21.0-31.0) Seconds PTT Ratio 0.9 Sodium 138 (136-145) mmol/L Potassium 4.3 (3.5-5.1) mmol/L Chloride 106 (98-107) mmol/L Carbon Dioxide 27 (21-32) mmol/L Anion Gap 5.0 (3-11) BUN 29 H (7-18) mg/dl Creatinine 1.15 (0.6-1.4) mg/dl Est Cr Clr Drug Dosing Not Reportable Est GFR ( Amer) 70.7 ml/min Est GFR (Non-Af Amer) 61.0 ml/min BUN/Creatinine Ratio 25.4 H (10-20) Glucose 106 H (70-99) mg/dl Calcium 9.5 (8.5-10.1) mg/dl Magnesium 2.4 (1.8-2.4) mg/dl Total Bilirubin 0.7 (0.2-1) mg/dl AST 60 H (15-37) U/L ALT 114 H (12-78) Alkaline Phosphatase 104 (45-117) U/L Troponin I < 0.015 (0-0.045) ng/ml Total Protein 7.4 (6.4-8.2) gm/dl Albumin 3.7 (3.4-5.0) gm/dl Globulin 3.7 (2.5-4.0) gm/dl Albumin/Globulin Ratio 1.0 (0.9-2) TSH 3.200 (0.300-4.500) uIu/ml SARS-CoV-2, RNA, NAAT (NEGATIVE) 08/16/21 Range/Units 15:00 WBC (4.8-10.8) K/uL RBC (4.7-6.1) M/uL Hgb (14.0-18.0) g/dL Hct (42-52) % MCV (80-100) fL MCH (25-34) pg MCHC (32-36) g/dL RDW Std Deviation (36.4-46.3) fL RDW Coeff of Zena (11.5-14.5) % Plt Count (130-400) K/uL MPV (7.4-10.4) fL Immature Gran % (Auto) % Neut % (Auto) % Lymph % (Auto) % [place] % (Auto) % Eos % (Auto) % Baso % (Auto) % Neut # (Auto) (1.4-6.5) K/uL Lymph # (Auto) (1.2-3.4) K/uL [place] # (Auto) (0.11-0.59) K/uL Eos # (Auto) (0-0.5) K/uL Baso # (Auto) (0-0.2) K/uL Immature Gran # (Auto) (0.00-0.02) K/uL PT (9.0-12.0) Seconds INR (0.9-1.1) APTT (21.0-31.0) Seconds PTT Ratio Sodium (136-145) mmol/L Potassium (3.5-5.1) mmol/L Chloride (98-107) mmol/L Carbon Dioxide (21-32) mmol/L Anion Gap (3-11) BUN (7-18) mg/dl Creatinine (0.6-1.4) mg/dl Est Cr Clr Drug Dosing Est GFR ( Amer) ml/min Est GFR (Non-Af Amer) ml/min BUN/Creatinine Ratio (10-20) Glucose (70-99) mg/dl Calcium (8.5-10.1) mg/dl Magnesium (1.8-2.4) mg/dl Total Bilirubin (0.2-1) mg/dl AST (15-37) U/L ALT (12-78) Alkaline Phosphatase (45-117) U/L Troponin I (0-0.045) ng/ml Total Protein (6.4-8.2) gm/dl Albumin (3.4-5.0) gm/dl Globulin (2.5-4.0) gm/dl Albumin/Globulin Ratio (0.9-2) TSH (0.300-4.500) uIu/ml SARS-CoV-2, RNA, NAAT NEGATIVE (NEGATIVE) Administered Medications Discontinued Medications Diphtheria/Pertussis/Tetanus Vacc (Diphtheria/Tetanus/Pertussis 0.5 Ml Syr/Vial) 0.5 ml IM .ONCE ONE Stop: 08/16/21 13:14 Last Admin: 08/16/21 14:43 Dose: 0.5 ml Documented by: [id number] Ampicillin Sodium/Sulbactam Sodium 3,000 mg/ Sodium Chloride 108 mls @ 200 mls/hr IV NOW STA; Protocol Stop: 08/16/21 13:45 Last Infusion: 08/16/21 14:44 Dose: 0 mls/hr Documented by: [id number] Admin: 08/16/21 14:05 Dose: 200 mls/hr Documented by: [id number] Lidocaine/Epinephrine (Lido/Epinephrine/Sod Bicarb 20 Ml Vial) Confirm Administered Dose 20 ml .ROUTE .STK-MED ONE Stop: 08/16/21 12:48 Last Admin: 08/16/21 12:50 Dose: 20 ml Documented by: [id number] Tranexamic Acid (Txa 10% Non-Iv Routes 100 Mg/Ml Vial) 1,000 mg TOP ONE ONE Stop: 08/16/21 13:09 Last Admin: 08/16/21 13:15 Dose: 1,000 mg Documented by: [id number] Imaging Data Radiologist's Impression: Cervical Spine CT 08/16/21 12:51 CT SCAN OF THE CERVICAL SPINE CLINICAL HISTORY: Fall. COMPARISON STUDY: No priors. TECHNIQUE: CT scan of the cervical spine is performed from the skull base to the upper thoracic spine. Images are reviewed in the axial, sagittal, and coronal planes. IV contrast was not administered for this examination. A dose lowering technique was utilized adhering to the principles of ALARA. CT DOSE: 1013.48 mGy.cm FINDINGS: Skeletal structures: The skeletal structures are osteopenic. There is no evidence of fracture or subluxation involving the cervical spine. Vertebral body height and alignment are maintained. Large anterior osteophytes are seen throughout. There is straightening of the cervical lordosis. The odontoid process and lateral masses are intact. The atlantoaxial articulation is preserved noting advanced productive degenerative change. The spinous processes appear intact. There is moderate to advanced multilevel cervical spondylosis. Uncovertebral and facet arthropathy contribute to neural foraminal narrowing at most levels. Intervertebral discs: There is advanced disc space narrowing with near complete bony fusion of C3 and C4. Advanced disc space narrowing is also seen at C2-C3, C4-C5, C5-C6, and C6-C7. There is multilevel degenerative endplate sclerosis. Central canal: Large posterior disc osteophyte complexes are seen at all cervical levels and contribute to multilevel acquired compromise of the central canal. Soft tissues: The prevertebral and paraspinous soft tissues are within normal limits. There is atherosclerotic calcification of the carotid bulbs. Calvarium: The visualized calvarium at the skull base appears intact. Brain parenchyma: Partially visualized brain parenchyma at the skull base is within normal limits. Sinuses and mastoids: The visualized paranasal sinuses are clear. The mastoid air cells are well pneumatized. Lung apices: Clear as visualized. IMPRESSION: 1. There is no evidence of fracture or subluxation involving the cervical spine. 2. Osteopenia and spondylotic change as above. ACT 112: Negative or not required by law. Electronically signed by: Derek Acevedo M.D. 08/16/2021 2:05 PM Chest X-Ray 08/16/21 12:51 SINGLE VIEW CHEST CLINICAL HISTORY: Syncope. FINDINGS: 2 AP, portable, upright chest radiographs are compared to study dated 12/18/2017. The examination is degraded by portable technique and patient rotation. The heart is mildly enlarged noting atherosclerotic calcification of the thoracic aorta. The pulmonary vasculature is noncongested. Chronic inter stitial thickening is similar to previous. There is mild bibasilar scarring/atelectasis. No airspace consolidation or large pleural effusion is identified. No pneumothorax is seen. The skeletal structures are osteopenic. The bony thorax is grossly intact. IMPRESSION: Mild cardiomegaly with no acute cardiopulmonary abnormality. ACT 112: Negative or not required by law. Electronically signed by: Derek Acevedo M.D. 08/16/2021 2:[address] 08/16/21 12:51 CT SCAN OF THE FACIAL BONES WITHOUT IV CONTRAST CLINICAL HISTORY: Syncope. Fall. Facial injuries. COMPARISON STUDY: CT of the brain performed concurrently on 08/16/2021. TECHNIQUE: High-resolution CT scan of the facial bones is performed. Images are reviewed in the axial, sagittal, and coronal planes. IV contrast was not administered for this examination. A dose lowering technique was utilized adhering to the principles of ALARA. FINDINGS: The skeletal structures are osteopenic. There is no evidence of facial bone fracture. The bony orbits are intact and the orbital contents are within normal limits. The zygomatic arches, nasal bones, and pterygoid plates are preserved. The maxilla and mandible are intact. Mild degenerative changes noted in the temporomandibular joints. There are no layering blood products within the paranasal sinuses. There is trace fluid in the right maxillary antrum. The remaining paranasal sinuses are clear. The mastoid air cells are well pneumatized. The visualized calvarium and upper cervical spine are maintained. Partially imaged brain parenchyma is within normal limits. Soft tissue contusion/hematoma overlies the chin. A 4 mm foreign body is seen at the dermal surface on axial image #75 of 96. IMPRESSION: 1. There is no evidence of facial bone fracture. 2. Soft tissue injury of the chin as above. ACT 112: Negative or not required by law. Electronically signed by: Derek Acevedo M.D. 08/16/2021 2:[address] 08/16/21 12:51 CT SCAN OF THE BRAIN WITHOUT IV CONTRAST CLINICAL HISTORY: Syncope COMPARISON STUDY: No priors. TECHNIQUE: Unenhanced axial CT scan of the brain is performed from the vertex to the skull base. A dose lowering technique was utilized adhering to the principles of ALARA. FINDINGS: Brain parenchyma: There are age-related involutional changes noting minimal subcortical and periventricular microangiopathic change. There is no hemorrhage, mass effect, or evidence of acute territorial ischemia by CT criteria. Orr- white matter differentiation is preserved. No extra-axial fluid collection is seen. Ventricles, sulci, cisterns: Prominent secondary to involutional change. Intracranial vasculature: There is minimal atherosclerotic calcification of the cavernous carotid arteries. Calvarium: The skeletal structures are osteopenic. No depressed calvarial fracture is identified. Sinuses and mastoids: There is trace fluid within the right maxillary antrum. The remaining visualized paranasal sinuses are clear. The mastoid air cells are well pneumatized. Orbits: The bony orbits are grossly intact. IMPRESSION: There is no hemorrhage, mass effect, or evidence of acute territorial ischemia by CT criteria. ACT 112: Negative or not required by law. Electronically signed by: Derek Acevedo M.D. 08/16/2021 1:51 PM Discharge Plan Visit Data Chief Complaint: Syncope Stated Complaint: PASSED OUT/BLEEDING FROM MOUTH ED Provider: Alfredo Patel Discharge Problem: Syncope, Face lacerations, Contusion of face Patient Disposition: Being Evaluated by Hospitalist
[2021-08-16 13:28] LABS: Basophils # (auto) 0.02 K/uL (0-0.2); Basophils % (auto) 0.2 %; Eosinophils # (auto) 0.09 K/uL (0-0.5); Eosinophils % (auto) 0.8 %; Hematocrit (blood only) 48.1 % (42-52); Immature Granulocytes # (auto) 0.02 K/uL (0.00-0.02); Immature Granulocytes % (auto) 0.2 %; Lymphocytes # (auto) 1.09 K/uL (1.2-3.4); Mean Corpuscular Hemoglobin 31.4 pg (25-34); Mean Corpuscular Hgb Conc 33.3 g/dL (32-36); Mean Corpuscular Volume 94.3 fL (80-100); Monocytes % (auto) 6.4 %; Neutrophils % (auto) 82.4 %; Platelet Count 241 K/uL (130-400); RDW Coefficient of Variation 13.5 % (11.5-14.5); RDW Standard Deviation 46.7 fL (36.4-46.3); White Blood Count 10.92 K/uL (4.8-10.8)
[2021-08-16 13:43] LABS: Partial Thromboplastin Ratio 0.9; Partial Thromboplastin Time 23.7 Seconds (21.0-31.0); Prothrombin Time 10.2 Seconds (9.0-12.0)
[2021-08-16 13:48] LABS: Alanine Aminotransferase 114 (12-78); Albumin Level 3.7 gm/dl (3.4-5.0); Aspartate Aminotransferase 60 U/L (15-37); BUN Creatinine Ratio 25.4 (10-20); Blood Urea Nitrogen 29 mg/dl (7-18); Calcium 9.5 mg/dl (8.5-10.1); Carbon Dioxide 27 mmol/L (21-32); Chloride 106 mmol/L (98-107); Est GFR (African American) 70.7 ml/min; Glucose 106 mg/dl (70-99); Magnesium 2.4 mg/dl (1.8-2.4); Potassium 4.3 mmol/L (3.5-5.1); Sodium 138 mmol/L (136-145)
--- NOTE | 2021-08-16 13:52 | CT Scan Report ---
CT SCAN OF THE BRAIN WITHOUT IV CONTRAST CLINICAL HISTORY: Syncope COMPARISON STUDY: No priors. TECHNIQUE: Unenhanced axial CT scan of the brain is performed from the vertex to the skull base. A do se lowering technique was utilized adhering to the principles of ALARA. FINDINGS: Brain parenchyma: There are age-related involutional changes noting minimal subcortical and perivent ricular microangiopathic change. There is no hemorrhage, mass effect, or evidence of acute territoria l ischemia by CT criteria. Orr-white matter differentiation is preserved. No extra-axial fluid colle ction is seen. Ventricles, sulci, cisterns: Prominent secondary to involutional change. Intracranial vasculature: There is minimal atherosclerotic calcification of the cavernous carotid art eries. Calvarium: The skeletal structures are osteopenic. No depressed calvarial fracture is identified. Sinuses and mastoids: There is trace fluid within the right maxillary antrum. The remaining visualize d paranasal sinuses are clear. The mastoid air cells are well pneumatized. Orbits: The bony orbits are grossly intact. IMPRESSION: There is no hemorrhage, mass effect, or evidence of acute territorial ischemia by CT andrea ulrich. ACT 112: Negative or not required by law. Electronically signed by: Derek Acevedo M.D. 08/16/2021 1:51 PM
[2021-08-16 13:59] LABS: Alkaline Phosphatase 104 U/L (45-117); Bilirubin,Total 0.7 mg/dl (0.2-1); Globulin 3.7 gm/dl (2.5-4.0); Total Protein 7.4 gm/dl (6.4-8.2); Troponin I < 0.015 ng/ml (0-0.045)
--- NOTE | 2021-08-16 14:02 | CT Scan Report ---
CT SCAN OF THE FACIAL BONES WITHOUT IV CONTRAST CLINICAL HISTORY: Syncope. Fall. Facial injuries. COMPARISON STUDY: CT of the brain performed concurrently on 08/16/2021. TECHNIQUE: High-resolution CT scan of the facial bones is performed. Images are reviewed in the axia l, sagittal, and coronal planes. IV contrast was not administered for this examination. A dose lower ing technique was utilized adhering to the principles of ALARA. FINDINGS: The skeletal structures are osteopenic. There is no evidence of facial bone fracture. The b breann orbits are intact and the orbital contents are within normal limits. The zygomatic arches, nasal bones, and pterygoid plates are preserved. The maxilla and mandible are intact. Mild degenerative siobhan nges noted in the temporomandibular joints. There are no layering blood products within the paranasal sinuses. There is trace fluid in the right maxillary antrum. The remaining paranasal sinuses are nenita ar. The mastoid air cells are well pneumatized. The visualized calvarium and upper cervical spine are maintained. Partially imaged brain parenchyma is within normal limits. Soft tissue contusion/hematom a overlies the chin. A 4 mm foreign body is seen at the dermal surface on axial image #75 of 96. IMPRESSION: 1. There is no evidence of facial bone fracture. 2. Soft tissue injury of the chin as above. ACT 112: Negative or not required by law. Electronically signed by: Derek Acevedo M.D. 08/16/2021 2:01 PM
--- NOTE | 2021-08-16 14:07 | CT Scan Report ---
CT SCAN OF THE CERVICAL SPINE CLINICAL HISTORY: Fall. COMPARISON STUDY: No priors. TECHNIQUE: CT scan of the cervical spine is performed from the skull base to the upper thoracic spine . Images are reviewed in the axial, sagittal, and coronal planes. IV contrast was not administered fo r this examination. A dose lowering technique was utilized adhering to the principles of ALARA. CT DOSE: 1013.48 mGy.cm FINDINGS: Skeletal structures: The skeletal structures are osteopenic. There is no evidence of fracture or subl uxation involving the cervical spine. Vertebral body height and alignment are maintained. Large anter ior osteophytes are seen throughout. There is straightening of the cervical lordosis. The odontoid pr ocess and lateral masses are intact. The atlantoaxial articulation is preserved noting advanced produ ctive degenerative change. The spinous processes appear intact. There is moderate to advanced multile alessia cervical spondylosis. Uncovertebral and facet arthropathy contribute to neural foraminal narrowin g at most levels. Intervertebral discs: There is advanced disc space narrowing with near complete bony fusion of C3 and C4. Advanced disc space narrowing is also seen at C2-C3, C4-C5, C5-C6, and C6-C7. There is multileve l degenerative endplate sclerosis. Central canal: Large posterior disc osteophyte complexes are seen at all cervical levels and contribu te to multilevel acquired compromise of the central canal. Soft tissues: The prevertebral and paraspinous soft tissues are within normal limits. There is athero sclerotic calcification of the carotid bulbs. Calvarium: The visualized calvarium at the skull base appears intact. Brain parenchyma: Partially visualized brain parenchyma at the skull base is within normal limits. Sinuses and mastoids: The visualized paranasal sinuses are clear. The mastoid air cells are well pneu matized. Lung apices: Clear as visualized. IMPRESSION: 1. There is no evidence of fracture or subluxation involving the cervical spine. 2. Osteopenia and spondylotic change as above. ACT 112: Negative or not required by law. Electronically signed by: Derek Acevedo M.D. 08/16/2021 2:05 PM
--- NOTE | 2021-08-16 14:30 | XRay Report ---
SINGLE VIEW CHEST CLINICAL HISTORY: Syncope. FINDINGS: 2 AP, portable, upright chest radiographs are compared to study dated 12/18/2017. The examin ation is degraded by portable technique and patient rotation. The heart is mildly enlarged noting ath erosclerotic calcification of the thoracic aorta. The pulmonary vasculature is noncongested. Chronic interstitial thickening is similar to previous. There is mild bibasilar scarring/atelectasis. No airs pace consolidation or large pleural effusion is identified. No pneumothorax is seen. The skeletal str uctures are osteopenic. The bony thorax is grossly intact. IMPRESSION: Mild cardiomegaly with no acute cardiopulmonary abnormality. ACT 112: Negative or not required by law. Electronically signed by: Derek Acevedo M.D. 08/16/2021 2:28 PM
--- NOTE | 2021-08-16 15:21 | History & Physical Report ---
Date of Service August 16, 2021 Assessment & Plan (1) Syncope: Plan: Increased flecainide dosing 100mg PO BID on July 31 - suspected related to this however would favor continuing and stopping metoprolol currently Orthostatics qshift Monitor for arrhythmias on on telemetry Consult cardiology for ongoing advice on atrial tachycardia and atrial fibrillation in setting of syncope ?related to flecainide (2) PAF (paroxysmal atrial fibrillation): Plan: Continue on flecainide 100mg PO BID Hold anticoagulation given extent of lip laceration and only brief episodes of atrial fibrillation (3) Hypertension: Plan: Continue lisinopril 10 mg p.o. every morning (4) Lip laceration: Plan: Sutured in the ER. Hold Eliquis as above Plan: VTE Prophylaxis - chemical deferred on admission given lip laceration and bleeding Diet - heart healthy Disposition - observation status on med/tele Admission and Anticipated Discharge Date Admission Date: August 16, 2021 History of Present Illness Chief Complaint: Syncope Primary Care Provider: Blair Davis DO Param Butts is a 76 year old male who present to the ER after a syncopal episode at home. He reports ongoing orthostasis symptoms since his flecainide dose was increased on July 31. He had been doing relatively well however and taking his time to get up until yesterday and today. Today he felt he got up too quickly from recliner around 11am this morning. [place] dizzy prior to full syncopal episode with a "wave" coming over him. Earlier in the morning he walked for a couple of hours without any symptoms. No hip or back pain after fall. Lip laceration present which was sutured in the ER. He reports taking his usual medications this morning. No current chest pain or shortness of breath. He was referred to medicine for admission and ongoing management of syncope. Allergies Allergy/AdvReac Type Severity Reaction Status Date / Time No Known Allergies Allergy Verified 08/16/21 15:55 Home Medications Medication Instructions Recorded Confirmed Type lisinopril 10 mg tablet 10 mg PO QAM #90 tab 04/14/21 08/16/21 Rx apixaban 5 mg tablet (Eliquis) 5 mg PO BID 07/22/21 08/16/21 History Collagen Peptides 1 dose PO QAM 08/16/21 08/16/21 History ascorbic acid (vitamin C) 500 mg 500 mg PO BID 08/16/21 08/16/21 History tablet (Vitamin C) atorvastatin 10 mg tablet 10 mg PO DAILY@1200 08/16/21 08/16/21 History cholecalciferol (vitamin D3) 125 125 mcg PO DAILY@1200 08/16/21 08/16/21 History mcg (5,000 unit) tablet (Vitamin D3) flecainide 100 mg tablet 100 mg PO BID 08/16/21 08/16/21 History metoprolol succinate 25 mg 12.5 mg PO DAILY@1700 08/16/21 08/16/21 History tablet,extended release 24 hr multivitamin 1 tab PO DAILY@1200 08/16/21 08/16/21 History omega 3 350 mg-dha 235 mg-epa 90 1 cap PO QDD 08/16/21 08/16/21 History mg-fish oil 597 mg capsule,delay rel ([place]-3) Past Med/Surg History Medical History Anastomotic ulcer Basal cell carcinoma (BCC) of abdomen removed in office Chronic osteoarthritis Diverticular disease Dyslipidemia Hydrocele Hyperglycemia Hypertension Male erectile disorder of organic origin Male stress incontinence Malignant neoplasm of prostate Osteoporosis PAF (paroxysmal atrial fibrillation) (~02/2021) Prostate cancer (~2012) followed by Urology Surgical History History of appendectomy History of bowel resection for perforated bowel History of colonoscopy Last 09/2018 no further screening recommended History of colostomy History of colostomy reversal 04/2018 History of evacuation of hematoma right lower leg History of left inguinal hernia repair History of prostate biopsy malignant History of prostatectomy (~2012) 2012 History of right inguinal hernia repair History of tonsillectomy and adenoidectomy History of wisdom tooth extraction Family History Father Leukemia Hypertension Mother Hypertension Brain tumor Sister Hypertension Other No family history of adverse response to anesthesia Social History Smoking Status: Never smoker Second Hand Exposure: No; Do You Dip or Chew Tobacco: No; Tobacco Cessation Education Requested by Patient: No Hx Alcohol Use: Yes Alcohol type: beer Alcohol Intake Frequency: Monthly or Less Hx Substance Use: No Preferred Language: Citizen Of [place] Communication Ability: Effective Visual Impairment: Limited Hearing Ability: Normal Mobility Scooter Repairer Required: No Beliefs That Will Affect Care: None marital status: Current Living Situation: Spouse current occupational status: retired Other Information That Helps Us Care for You: No Feels Safe at Home: Yes Safety Concerns: Feels Safe At This Time Childhood Exposure to Second-Hand Smoke: Yes caffeine: No Dental Care, Regularly: Yes Physical Activity Frequency: Daily Physical Activity Frequency Comment: walk Seatbelt Use: always Sunscreen Use: Yes Do you think of yourself as: straight/heterosexual Assistive Devices: Contacts Review of Systems Review of Systems: All systems reviewed & are unremarkable except as noted in HPI & below Physical Exam Constitutional: WD/WN, vitals as above Eyes: PERRL, conjunctivae normal, anicteric sclerae ENMT: Lower lip laceration sutures noted with minimal active bleeding but significant swelling to this area Neck: trachea midline, no thyromegaly Respiratory: normal respiratory effort, lungs clear to auscultation Cardiovascular: Rate/Rhythm: regular rate and regular rhythm Heart Sounds: no murmur Extremities: normal capillary refill; no calf tenderness and no pedal edema Gastrointestinal (Abdomen): Inspection/Auscultation: normal bowel sounds Percussion/Palpation: abdomen soft; abdomen nontender, no guarding and abdomen not rigid Musculoskeletal: no cyanosis or clubbing, extremities motor strength 5/5 Skin: no rashes, warm and dry Neurologic: moves all extremities and awake; no focal motor deficits and not confused Motor/Sensory: no tremor and no pronator drift Psychiatric: A+Ox3, euthymic affect Results & Data Results & Data ([facility]) Vital Signs (Past 12 Hours) Vital Signs Temp Pulse Pulse Resp BP BP Pulse Ox 08/16/21 14:19 53 L 17 187/84 H 100 08/16/21 13:35 54 L 17 96 08/16/21 12:28 36.3 C L 56 L 18 201/99 H 99 Laboratory Results Abnormal lab results 08/16/21 08/16/21 Range/Units 12:51 12:51 WBC 10.92 H (4.8-10.8) K/uL RDW Std Deviation 46.7 H (36.4-46.3) fL MPV 11.0 H (7.4-10.4) fL Neut # (Auto) 9.00 H (1.4-6.5) K/uL Lymph # (Auto) 1.09 L (1.2-3.4) K/uL [place] # (Auto) 0.70 H (0.11-0.59) K/uL BUN 29 H (7-18) mg/dl BUN/Creatinine Ratio 25.4 H (10-20) Glucose 106 H (70-99) mg/dl AST 60 H (15-37) U/L ALT 114 H (12-78) Diagnostic Findings CT SCAN OF THE BRAIN WITHOUT IV CONTRAST CLINICAL HISTORY: Syncope COMPARISON STUDY: No priors. TECHNIQUE: Unenhanced axial CT scan of the brain is performed from the vertex to the skull base. A dose lowering technique was utilized adhering to the principles of ALARA. FINDINGS: Brain parenchyma: There are age-related involutional changes noting minimal subcortical and periventricular microangiopathic change. There is no hemorrhage, mass effect, or evidence of acute territorial ischemia by CT criteria. Orr- white matter differentiation is preserved. No extra-axial fluid collection is seen. Ventricles, sulci, cisterns: Prominent secondary to involutional change. Intracranial vasculature: There is minimal atherosclerotic calcification of the cavernous carotid arteries. Calvarium: The skeletal structures are osteopenic. No depressed calvarial fracture is identified. Sinuses and mastoids: There is trace fluid within the right maxillary antrum. The remaining visualized paranasal sinuses are clear. The mastoid air cells are well pneumatized. Orbits: The bony orbits are grossly intact. IMPRESSION: There is no hemorrhage, mass effect, or evidence of acute territorial ischemia by CT criteria. CT SCAN OF THE FACIAL BONES WITHOUT IV CONTRAST CLINICAL HISTORY: Syncope. Fall. Facial injuries. COMPARISON STUDY: CT of the brain performed concurrently on 08/16/2021. TECHNIQUE: High-resolution CT scan of the facial bones is performed. Images are reviewed in the axial, sagittal, and coronal planes. IV contrast was not administered for this examination. A dose lowering technique was utilized adhering to the principles of ALARA. FINDINGS: The skeletal structures are osteopenic. There is no evidence of facial bone fracture. The bony orbits are intact and the orbital contents are within normal limits. The zygomatic arches, nasal bones, and pterygoid plates are preserved. The maxilla and mandible are intact. Mild degenerative changes noted in the temporomandibular joints. There are no layering blood products within the paranasal sinuses. There is trace fluid in the right maxillary antrum. The remaining paranasal sinuses are clear. The mastoid air cells are well pneumatized. The visualized calvarium and upper cervical spine are maintained. Partially imaged brain parenchyma is within normal limits. Soft tissue contusion/hematoma overlies the chin. A 4 mm foreign body is seen at the dermal surface on axial image #75 of 96. IMPRESSION: 1. There is no evidence of facial bone fracture. 2. Soft tissue injury of the chin as above. CT SCAN OF THE CERVICAL SPINE CLINICAL HISTORY: Fall. COMPARISON STUDY: No priors. TECHNIQUE: CT scan of the cervical spine is performed from the skull base to the upper thoracic spine. Images are reviewed in the axial, sagittal, and coronal planes. IV contrast was not administered for this examination. A dose lowering technique was utilized adhering to the principles of ALARA. CT DOSE: 1013.48 mGy.cm FINDINGS: Skeletal structures: The skeletal structures are osteopenic. There is no evidence of fracture or subluxation involving the cervical spine. Vertebral body height and alignment are maintained. Large anterior osteophytes are seen throughout. There is straightening of the cervical lordosis. The odontoid process and lateral masses are intact. The atlantoaxial articulation is preserved noting advanced productive degenerative change. The spinous processes appear intact. There is moderate to advanced multilevel cervical spondylosis. Uncovertebral and facet arthropathy contribute to neural foraminal narrowing at most levels. Intervertebral discs: There is advanced disc space narrowing with near complete bony fusion of C3 and C4. Advanced disc space narrowing is also seen at C2-C3, C4-C5, C5-C6, and C6-C7. There is multilevel degenerative endplate sclerosis. Central canal: Large posterior disc osteophyte complexes are seen at all cervical levels and contribute to multilevel acquired compromise of the central canal. Soft tissues: The prevertebral and paraspinous soft tissues are within normal limits. There is atherosclerotic calcification of the carotid bulbs. Calvarium: The visualized calvarium at the skull base appears intact. Brain parenchyma: Partially visualized brain parenchyma at the skull base is within normal limits. Sinuses and mastoids: The visualized paranasal sinuses are clear. The mastoid air cells are well pneumatized. Lung apices: Clear as visualized. IMPRESSION: 1. There is no evidence of fracture or subluxation involving the cervical spine. 2. Osteopenia and spondylotic change as above. SINGLE VIEW CHEST CLINICAL HISTORY: Syncope. FINDINGS: 2 AP, portable, upright chest radiographs are compared to study dated 12/18/2017. The examination is degraded by portable technique and patient rotation. The heart is mildly enlarged noting atherosclerotic calcification of the thoracic aorta. The pulmonary vasculature is noncongested. Chronic interstitial thickening is similar to previous. There is mild bibasilar scarring/atelectasis. No airspace consolidation or large pleural effusion is identified. No pneumothorax is seen. The skeletal structures are osteopenic. The bony thorax is grossly intact. IMPRESSION: Mild cardiomegaly with no acute cardiopulmonary abnormality. Medications Administered ER Medications Given: Tranexamic acid 10% topical application Unasyn 3000mg IV TDaP 0.5ml IM ECG Indication: syncope Rate (beats per minute): 53 Rhythm: sinus bradycardia Findings: no acute ischemic change Comparison ECG Date: from (December 19, 2017) Change: the following changes noted (TWI no longer evident in lateral leads) Code Status & VTE Plan Code Status DNR/DNI VTE Prophylaxis Plan VTE Prophylaxis will be ordered: Yes PG Care Time/CCT Total # of Minutes Spent Total Time Spent with Patient: Total time spent is greater than 50% in coordination of care (as documented) at patient's floor/unit and/or counseling patient: Coding Level of Care Code INT OBSERVATION CARE 70M LVL 3 Diagnoses PAF (paroxysmal atrial fibrillation) I48.0 Syncope R55 Hypertension I10 Lip laceration S01.511A
[2021-08-16] MEDS ORDERED: ATORVASTATIN 10 MG TAB PO ONE (20:00)
[2021-08-16] MEDS: AMOXICILLIN/CLAVULANATE 875 MG TAB PO SCH (20:33)
[2021-08-16] MEDS: ASCORBIC ACID 500 MG TAB PO SCH (21:00)
[2021-08-16] MEDS: FLECAINIDE ACETATE 100 MG TABLET PO SCH (21:00)
--- NOTE | 2021-08-16 22:52 | Electrocardiogram Report ---
Test Reason : Blood Pressure : / mmHG Vent. Rate : 053 BPM Atrial Rate : 053 BPM P-R Int : 176 ms QRS Dur : 094 ms QT Int : 444 ms P-R-T Axes : 035 018 030 degrees QTc Int : 416 ms Sinus bradycardia When compared with ECG of 19-DEC-2017 01:02, Vent. rate has decreased BY 34 BPM T wave inversion no longer evident in Lateral leads Confirmed by Eduardo Wang ([id number]) on 08/16/2021 10:52:06 PM Referred By: ED Confirmed By:Eduardo Wang
[2021-08-17 02:11] LABS: Appearance Urine Clear (Clear); Bilirubin Urine Negative (Negative); Blood Urine Negative (Negative); Color Urine Yellow; Glucose Urine UA Negative (Negative); Ketones Urine 1+ (Negative); Leukocyte Esterase Urine Negative (Negative); Nitrite Urine Negative (Negative); Protein Urine Negative (Negative); Specific Gravity Urine 1.017 (1.000-1.030); Urobilinogen Urine Negative (Negative)
[2021-08-17] MEDS: FLECAINIDE ACETATE 100 MG TABLET PO SCH (06:44)
[2021-08-17] MEDS ORDERED: lisinopril 10 MG TAB PO SCH (09:00)
[2021-08-17] MEDS: ASCORBIC ACID 500 MG TAB PO SCH ×2 (09:00→19:55)
[2021-08-17] MEDS: AMOXICILLIN/CLAVULANATE 875 MG TAB PO SCH ×2 (09:00→18:37)
[2021-08-17 09:10] LABS: Basophils # (auto) 0.01 K/uL (0-0.2); Basophils % (auto) 0.1 %; Eosinophils # (auto) 0.05 K/uL (0-0.5); Eosinophils % (auto) 0.6 %; Hematocrit (blood only) 43.7 % (42-52); Hemoglobin 14.8 g/dL (14.0-18.0); Immature Granulocytes # (auto) 0.02 K/uL (0.00-0.02); Immature Granulocytes % (auto) 0.2 %; Lymphocytes % (auto) 13.7 %; Mean Corpuscular Hemoglobin 31.2 pg (25-34); Mean Platelet Volume 10.6 fL (7.4-10.4); Monocytes # (auto) 0.79 K/uL (0.11-0.59); Neutrophils # (auto) 6.69 K/uL (1.4-6.5); Neutrophils % (auto) 76.4 %; Platelet Count 232 K/uL (130-400); RDW Coefficient of Variation 13.5 % (11.5-14.5); Red Blood Count 4.75 M/uL (4.7-6.1); White Blood Count 8.76 K/uL (4.8-10.8)
[2021-08-17 09:14] LABS: Mean Corpuscular Hgb Conc 33.9 g/dL (32-36)
[2021-08-17 09:30] LABS: Albumin Level 3.2 gm/dl (3.4-5.0); BUN Creatinine Ratio 17.5 (10-20); Calcium 8.9 mg/dl (8.5-10.1); Creatinine Clr Calc Pharmacy 45.9 ml/min; Est GFR (African American) 63.3 ml/min; Est GFR (Non-African American) 54.7 ml/min; Potassium 3.9 mmol/L (3.5-5.1)
[2021-08-17 09:33] LABS: Albumin Globulin Ratio 0.9 (0.9-2); Globulin 3.6 gm/dl (2.5-4.0); Total Protein 6.8 gm/dl (6.4-8.2)
--- NOTE | 2021-08-17 09:37 | Ultrasound Report ---
US carotid doppler BI CLINICAL HISTORY: 76 years-old Male with syncope. Acute syncope COMPARISON: Head CT 08/16/2021 TECHNIQUE: Multiple real time sonographic images of the carotid bifurcations were obtained assessing huynh scale, color Doppler and spectral wave form appearance FINDINGS: RIGHT CAROTID: The peak systolic velocity measured within the right ICA is84 cm/sec. The end diasto lic velocity measured 15 cm/sec. The ICA to CCA ratio measured 0.9 which correlates with a stenosis of 0-50%. Mild atherosclerotic plaque of the right carotid bulb. LEFT CAROTID: The peak systolic velocity measured within the left ICA is104 cm/sec. The end diastol ic velocity measured 20 cm/sec. The ICA to CCA ratio measured 1.0 which correlates with a stenosis of 0-50%. Mild atherosclerotic plaque of the left carotid bulb. There is normal antegrade vertebral flow bilaterally. IMPRESSION: 1. Mild atherosclerosis without hemodynamically significant stenosis. 2. Normal antegrade vertebral flow bilaterally. ACT 112: Negative or not required by law. The above report was generated using voice recognition software. It may contain grammatical, syntax o r spelling errors. Electronically signed by: Shamar Jacob M.D. 08/17/2021 9:35 AM
--- NOTE | 2021-08-17 11:36 | Cardiology Consultation ---
Date of Consultation August 17, 2021 History of Present Illness Reason for Consultation: Syncope likely secondary to chronotropic incompetence and possibly related to pauses. Attending Physician: Beau Kirby DO History of Present Illness Patient has had symptomatic paroxysmal atrial tachycardia as an outpatient. Mostly he is felt palpitations. The episodes have been brief up to a minute at most. He is symptomatic with them but denies any lightheadedness or dizziness presyncope or syncope. He initially was placed on flecainide in addition to his Toprol 50 mg twice daily. On an event recorder he was having pauses and it was discontinued he saw the EP service who recommended ablation but in the meantime wanted to consider flecainide 100 mg twice daily in addition to his beta-stiven. He has been having lightheadedness and dizziness if he does something quickly especially standing up he notes yesterday he [place] when he got to the top of the incline he was lightheaded and dizzy. He denied any palpitations. That did nicolle. Later he went to do something quickly and got up out of a chair started to walk got to the kitchen was lightheaded and dizzy and then the next thing he knows he was on the floor he hit his lip clearly he was unable to catch himself. Denies any chest pain just pressure chest heaviness. He denies any lightheadedness or dizziness here in the hospital. He denies any palpitations. His lip is swollen and edematous with ecchymosis due to the fact that he is on anticoagulation. His carotid ultrasound was essentially normal his echocardiogram is also normal. The rest of a complete her systems otherwise negative Allergies Allergy/AdvReac Type Severity Reaction Status Date / Time No Known Allergies Allergy Verified 08/16/21 15:55 Home Medications Medication Instructions Recorded Confirmed Type lisinopril 10 mg tablet 10 mg PO QAM #90 tab 04/14/21 08/16/21 Rx apixaban 5 mg tablet (Eliquis) 5 mg PO BID 07/22/21 08/16/21 History Collagen Peptides 1 dose PO QAM 08/16/21 08/16/21 History ascorbic acid (vitamin C) 500 mg 500 mg PO BID 08/16/21 08/16/21 History tablet (Vitamin C) atorvastatin 10 mg tablet 10 mg PO DAILY@1200 08/16/21 08/16/21 History cholecalciferol (vitamin D3) 125 125 mcg PO DAILY@1200 08/16/21 08/16/21 History mcg (5,000 unit) tablet (Vitamin D3) flecainide 100 mg tablet 100 mg PO BID 08/16/21 08/16/21 History metoprolol succinate 25 mg 12.5 mg PO DAILY@1700 08/16/21 08/16/21 History tablet,extended release 24 hr multivitamin 1 tab PO DAILY@1200 08/16/21 08/16/21 History omega 3 350 mg-dha 235 mg-epa 90 1 cap PO QDD 08/16/21 08/16/21 History mg-fish oil 597 mg capsule,delay rel ([place]-3) Patient History Medical History Anastomotic ulcer Basal cell carcinoma (BCC) of abdomen removed in office Chronic osteoarthritis Diverticular disease Dyslipidemia Hydrocele Hyperglycemia Hypertension Male erectile disorder of organic origin Male stress incontinence Malignant neoplasm of prostate Osteoporosis PAF (paroxysmal atrial fibrillation) (~02/2021) Prostate cancer (~2012) followed by Urology Surgical History History of appendectomy History of bowel resection for perforated bowel History of colonoscopy Last 09/2018 no further screening recommended History of colostomy History of colostomy reversal 04/2018 History of evacuation of hematoma right lower leg History of left inguinal hernia repair History of prostate biopsy malignant History of prostatectomy (~2012) 2012 History of right inguinal hernia repair History of tonsillectomy and adenoidectomy History of wisdom tooth extraction Family History Father Leukemia Hypertension Mother Hypertension Brain tumor Sister Hypertension Other No family history of adverse response to anesthesia Social History Smoking Status: Never smoker Second Hand Exposure: No; Do You Dip or Chew Tobacco: No; Tobacco Cessation Education Requested by Patient: No Hx Alcohol Use: Yes Alcohol type: beer Alcohol Intake Frequency: Monthly or Less Hx Substance Use: No Preferred Language: Spanish Communication Ability: Effective Visual Impairment: Limited Hearing Ability: Normal Management Developer Required: No Beliefs That Will Affect Care: None marital status: Current Living Situation: Spouse current occupational status: retired Other Information That Helps Us Care for You: No Feels Safe at Home: Yes Safety Concerns: Feels Safe At This Time Childhood Exposure to Second-Hand Smoke: Yes caffeine: No Dental Care, Regularly: Yes Physical Activity Frequency: Daily Physical Activity Frequency Comment: walk Seatbelt Use: always Sunscreen Use: Yes Do you think of yourself as: straight/heterosexual Assistive Devices: Contacts Results & Data ([facility]) Vital Signs (Past 12 Hours) Vital Signs Temp Pulse Pulse Resp BP Pulse Ox 08/17/21 07:57 52 L 08/17/21 07:51 37.3 C 57 L 18 141/82 H 95 08/17/21 04:10 37.4 C 18 94 08/17/21 00:31 60 He is awake alert and oriented x3 is in no acute distress HEENT: 2+ carotid upstrokes normal to carotid bruits Lungs: Clear to auscultation bilaterally no rales rhonchi or wheezing Heart: Regular rate and rhythm (bradycardic) no appreciable murmurs or rubs Abdomen: Soft nontender distended positive bowel sounds Extremities: No clubbing cyanosis or edema Psychiatric his affect appeared appropriate His EKG and echocardiogram and carotid ultrasound and laboratory studies were all reviewed. I spent 10 minutes reviewing his inpatient diagnostic studies and his outpatient diagnostic studies. IMPRESSIONS: 1. Syncope likely secondary to chronotropic incompetence from a combination of beta-blockers and flecainide less likely from pauses leading to syncope 2. Paroxysmal atrial tachycardia 3. chronic anticoagulation 4. normal echocardiogram with normal biventricular size and function His baseline rhythm is sinus rhythm on low-dose beta-blockers with the addition of flecainide it appears that he has significant chronotropic incompetence. This would explain his symptoms yesterday walking up the hill suggesting he could get his heart rate up leading to decreased cardiac output and when he gets up out of a chair quickly his heart does not have time to increase the rate fast enough to compensate for the drop in his blood pressure. As I discussed with him he has one of two options we can put a pacemaker in and leave him on flecainide and beta-blockers. This would reduce the chance that is going pauses as well as chronotropic incompetence and allow us to increase his heart rate with activity. The other option is to stop his flecainide allowing his heart rate to come up and reduce his lisinopril from 10 mg to 5 mg. Continue with plans for an ablation on September 16 hoping that we can maintain sinus rhythm without the need of antiarrhythmic therapy. If he were to need antiarrhythmic therapy his option would be Tikosyn or at that point he would need a pacemaker. We know he likely has sinus node dysfunction just based on his slow heart rate with minimal AV verito blockers at baseline. His echocardiogram is essentially normal his carotids were also minimally abnormal but not the cause for his syncope. I would monitor him overnight if he feels well he can be discharged tomorrow I discussed and he cannot drive for at least the next 2 weeks. I also discussed him given the fact that the episodes of his paroxysmal atrial tachycardia were relatively well-tolerated the chance of the PAT causing him any trouble like heart failure would be relatively small between now and his ablation in a month.
[2021-08-17] MEDS ORDERED: ATORVASTATIN 10 MG TAB PO SCH (12:00)
[2021-08-17] MEDS ORDERED: CEROVITE ADV FORMULA TAB PO SCH (12:00)
[2021-08-17] MEDS: CHOLECALCIFEROL 5,000 UNITS 125 MCG TAB PO SCH (12:09)
--- NOTE | 2021-08-17 14:28 | Hospitalist Progress Note ---
Date of Service August 17, 2021 Assessment & Plan (1) Syncope: Plan: 76 yo male with a pmhx of paroxysmal atrial fibrillation on both Metoprolol and Flecainide with a dose increase of the Flecainide on 07/31 - Increased flecainide dosing 100mg PO BID on July 31 - Cardiology consulted, appreciate Dr. Heredia's input, advised stopping Flecainide, continuing BB and reducing NORA - Continue cardiac monitoring - Echo performed with results as noted above - Carotid duplex study as noted above (no hemodynamic stenosis appreciated) - Orthostatics are negative - can d/c orthostatic VS - No driving for minimum of 2 weeks or longer if otherwise advised by cardiology (2) PAF (paroxysmal atrial fibrillation): Plan: - Discontinue flecainide 100mg as noted above - Continue Lopressor - AC held d/t lip laceration but will resume (no active bleeding) (3) Hypertension: Plan: - Continue Lisinopril & Lopressor, adjust dose from 10mg to 5mg (per cards) - Monitor (4) Lip laceration: Plan: - Sutured in the ER - Eliquis held, but will resume this evening Plan: Follow up labs in AM Gentle fluids overnight x 1L then stop D/C planning -- anticipate can d/c back home tomorrow w/ outpatient cardiology f/u Admission and Anticipated Discharge Date Admission Date: August 16, 2021 Subjective Mr. Butts was seen on rounds this morning. He was hospitalized 08/16 after suffering a syncopal episode at home. Review of Systems Review of Systems: CONSTITUTIONAL: Denies weight loss/gain, fever and chills, fatigue, malaise, generalized weakness. HEENT: Denies changes in vision and hearing. RESPIRATORY: Denies SOB, cough, wheezing. CV: Denies palpitations, CP, lower extremity edema, orthopnea, PND. GI: Denies abdominal pain, nausea, vomiting and diarrhea. : Denies dysuria and urinary frequency, urgency, hesitancy. MUSCULOSKELETAL: Denies myalgia and joint pain. SKIN: Denies rash and pruritus. NEUROLOGICAL: Denies headache, syncope, focal weakness, numbness, tingling. PSYCHIATRIC: Denies recent changes in mood. Denies anxiety and depression. Physical Exam Physical Exam: GENERAL: 76 yo elderly WD/WN WM. AAOx3. Pleasant and cooperative. NAD. LUNGS: Clear to auscultation bilaterally. No W/R/R. CARDIOVASCULAR: Sinus bradycardia. No M/G/R. No JVD. ABDOMEN: Soft, NT/ND. BS normal x 4 quad. EXTREMITIES: No edema. Non-tender. Peripheral pulses +2/4. PSYCHIATRIC: Cooperative. Appropriate mood and affect. SKIN: Warm, dry, intact. No rashes or lesions. Results & Data Results & Data ([facility]) Vital Signs (Past 12 Hours) Vital Signs Temp Pulse Pulse Resp BP Pulse Ox 08/17/21 11:36 37.0 C 51 L 18 128/68 96 08/17/21 07:57 52 L 08/17/21 07:51 37.3 C 57 L 18 141/82 H 95 08/17/21 04:10 37.4 C 18 94 Laboratory Results 08/17/21 08:57 08/17/21 08:57 Diagnostic Findings Chest X-Ray 08/16/21 12:51 SINGLE VIEW CHEST CLINICAL HISTORY: Syncope. FINDINGS: 2 AP, portable, upright chest radiographs are compared to study dated 12/18/2017. The examination is degraded by portable technique and patient rotation. The heart is mildly enlarged noting atherosclerotic calcification of the thoracic aorta. The pulmonary vasculature is noncongested. Chronic interstitial thickening is similar to previous. There is mild bibasilar scarring/atelectasis. No airspace consolidation or large pleural effusion is identified. No pneumothorax is seen. The skeletal structures are osteopenic. The bony thorax is grossly intact. IMPRESSION: Mild cardiomegaly with no acute cardiopulmonary abnormality. ACT 112: Negative or not required by law. Electronically signed by: Derek Acevedo M.D. 08/16/2021 2:28 PM Carotid Doppler Study 08/17/21 08:45 US carotid doppler BI CLINICAL HISTORY: 76 years-old Male with syncope. Acute syncope COMPARISON: Head CT 08/16/2021 TECHNIQUE: Multiple real time sonographic images of the carotid bifurcations were obtained assessing huynh scale, color Doppler and spectral wave form appearance FINDINGS: RIGHT CAROTID: The peak systolic velocity measured within the right ICA is84 cm/sec. The end diastolic velocity measured 15 cm/sec. The ICA to CCA ratio measured 0.9 which correlates with a stenosis of 0-50%. Mild atherosclerotic plaque of the right carotid bulb. LEFT CAROTID: The peak systolic velocity measured within the left ICA is104 cm/sec. The end diastolic velocity measured 20 cm/sec. The ICA to CCA ratio measured 1.0 which correlates with a stenosis of 0-50%. Mild atherosclerotic plaque of the left carotid bulb. There is normal antegrade vertebral flow bilaterally. IMPRESSION: 1. Mild atherosclerosis without hemodynamically significant stenosis. 2. Normal antegrade vertebral flow bilaterally. ACT 112: Negative or not required by law. The above report was generated using voice recognition software. It may contain grammatical, syntax or spelling errors. Electronically signed by: Shamar Jacob M.D. 08/17/2021 9:35 AM Echocardiogram: 08/17/21 The left ventricle is normal in size. There is normal left ventricular wall thickness. Left ventricular systolic function is normal. Ejection fraction is 60-65% The left ventricular wall motion is normal. The right ventricle is normal in size and function. Right ventricular systolic pressure is normal. PG Care Time/CCT Total # of Minutes Spent Total Time Spent with Patient: Total time spent is greater than 50% in coordination of care (as documented) at patient's floor/unit and/or counseling patient: Coding Level of Care Code 77080 Subseq Obs Care Lvl 2 Diagnoses Syncope R55 PAF (paroxysmal atrial fibrillation) I48.0 Hypertension I10 Lip laceration S01.511A
[2021-08-17] MEDS ORDERED: SODIUM CHLORIDE 0.9% 500 ML IV SCH (14:45)
[2021-08-17] MEDS ORDERED: OMEGA-3 (PURIFIED FISH OIL) 1 GM CAP PO SCH (16:30)
[2021-08-17] MEDS ORDERED: APIXABAN 5 MG TABLET PO SCH (19:00)
[2021-08-18 06:34] LABS: BUN Creatinine Ratio 16.1 (10-20); Calcium 9.4 mg/dl (8.5-10.1); Creatinine Clr Calc Pharmacy 45.5 ml/min; Est GFR (African American) 62.7 ml/min; Est GFR (Non-African American) 54.1 ml/min; Potassium 4.2 mmol/L (3.5-5.1)
[2021-08-18] MEDS ORDERED: APIXABAN 5 MG TABLET PO SCH (07:00)
--- NOTE | 2021-08-18 08:14 | Cardiology Progress Note ---
Date of Service August 18, 2021 Assessment & Plan Admission and Anticipated Discharge Date Admission Date: August 16, 2021 Subjective He feels well this morning. The only issue is eating soft foods with his swollen lip. He denies any lightheadedness or dizziness. He is he has been up to the bathroom without any dizziness. He denies any further syncopal episode. Denies any chest pain just pressure chest heaviness. Denies any shortness of breath. Overall he is feeling back to himself. He has not had any palpitations either. Results & Data ([facility]) Vital Signs (Past 12 Hours) Vital Signs Temp Pulse Pulse Resp BP Pulse Ox 08/18/21 07:49 37.3 C 60 16 158/83 H 94 08/18/21 02:47 37.0 C 53 L 18 106/63 96 08/18/21 00:54 57 L 08/17/21 22:54 37.0 C 59 L 18 129/65 96 He is awake alert and oriented x3 is in no acute distress HEENT: 2+ carotid upstrokes normal to carotid bruits Lungs: Clear to auscultation bilaterally no rales rhonchi or wheezing Heart: Regular rate and rhythm (bradycardic) no appreciable murmurs or rubs Abdomen: Soft nontender distended positive bowel sounds Extremities: No clubbing cyanosis or edema Psychiatric his affect appeared appropriate IMPRESSIONS: 1. Syncope likely secondary to chronotropic incompetence from a combination of beta-blockers and flecainide less likely from pauses leading to syncope 2. Paroxysmal atrial tachycardia 3. chronic anticoagulation 4. normal echocardiogram with normal biventricular size and function I think his episodes of dizziness were all related to chronotropic incompetence. It is always possible he had a pause that led to a syncopal episode. We know on his outpatient event recorder he was having pauses. We discontinued his flecainide. He has not had any paroxysmal atrial tachycardia but I expect he will wants his flecainide is out of his system. He should remain on beta-blockers. I did reduce his lisinopril from 10 mg to 5 mg. At this point I'm willing to accept some degree of mild hypertension in order to avoid any orthostatic symptoms. He is scheduled to have his ablation at [facility] in August. He will keep that date we did discuss expectations before and after the procedure. If his palpitations are more bothersome in the short-term I asked him to let us know and we could try to adjust his beta-blockers further. I did discuss with the nursing staff that he can get up and walk around and as long as he feels okay and he is not lightheaded or dizzy he can be discharged home. This was discussed with the hospitalist service as well.
--- NOTE | 2021-08-18 08:39 | Discharge Summary ---
Date of Service August 18, 2021 Admission HPI Per Admitting Provider Param Butts is a 76 year old male who present to the ER after a syncopal episode at home. He reports ongoing orthostasis symptoms since his flecainide dose was increased on July 31. He had been doing relatively well however and taking his time to get up until yesterday and today. Today he felt he got up too quickly from recliner around 11am this morning. [place] dizzy prior to full syncopal episode with a "wave" coming over him. Earlier in the morning he walked for a couple of hours without any symptoms. No hip or back pain after fall. Lip laceration present which was sutured in the ER. He reports taking his usual medications this morning. No current chest pain or shortness of breath. He was referred to medicine for admission and ongoing management of syncope. Principal Diagnosis Syncope Discharge Exam General: well developed, well nourished, no acute distress, comfortable EENT: lower lip laceration, stitches intact, lip is swollen, chipped front tooth on left Neck: supple, trachea midline, normal thyroid Lungs: clear to auscultation bilaterally, normal respiratory effort, no accessory muscle use, no distress Heart: regular S1 and S2, no murmur, peripheral pulses normal, capillary refill normal, no edema Abdomen: soft, NT, ND, + BS, no hepatomegaly, normal to percussion Extremities: normal in appearance, no cyanosis, no petechiae, strength is 5/5 bilaterally Neuro: awake, cooperative, moves all extremities, no focal motor deficits, CN II-XII intact, sensation in extremities intact, normal speech Skin: warm, dry, no rash, normal turgor Psych: Awake, alert oriented x 3, euthymic affect Discharge Data Allergies Allergy/AdvReac Type Severity Reaction Status Date / Time No Known Allergies Allergy Verified 08/16/21 15:55 Consultations 08/16/21 15:26 ED Decision to Admit Stat 08/16/21 15:45 Consult Cardiology Routine Ordered Studies 08/16/21 12:51 CT cervical spine wo con Stat CT facial bones wo con Stat CT head/brain wo con Stat 08/17/21 08:45 US carotid doppler BI Routine Hospital Course (1) Syncope: 76 yo male with a pmhx of paroxysmal atrial fibrillation on both Metoprolol and Flecainide with a dose increase of the Flecainide on 07/31 - Increased flecainide dosing 100mg PO BID on July 31 - Cardiology consulted, appreciate Dr. Heredia's input, advised stopping Flecainide, continuing BB and reducing NORA - Continue cardiac monitoring, no issues while here - Echo performed: normal EF, no valve disease - Carotid duplex study as noted above (no hemodynamic stenosis appreciated) - Orthostatics are negative - can d/c orthostatic VS - No driving for minimum of 2 weeks he ambulated well in the hallway discharge to home on metoprolol, lisinopril 5mg and hold flecainide follow up with [facility] in August for ablation as previously scheduled (2) PAF (paroxysmal atrial fibrillation): - Discontinue flecainide 100mg as noted above - Continue metoprolol - AC held d/t lip laceration but will resume (no active bleeding) (3) Hypertension: continue metoprolol lisinopril lowered to 5mg from 10mg to allow for high BP, more brain perfusion (4) Lip laceration: - Sutured in the ER - Eliquis resumed continue three more days of Augmentin d/c to home Total Time Total Time Spent Total Time Spent (In Minutes): 33 minutes Total Time Includes: Examination of the Patient, Discharge Planning, Medication Reconciliation and Communication With Other Providers Discharge Plan Discharge Items Patient Disposition: Home - Self-Care Reason For Visit: SYNCOPE Discharge Diagnosis: Syncope, likely from flecainide Condition on Discharge: Good Activity: Per Instructions section Lifting: Gradually increase as tolerated Sexual Activity: When tolerated Exercise/Sports: Gradually increase as tolerated Driving/Machine Use: no driving for 2 weeks Weightbearing: Full weightbearing Non-emergency contact: Primary Care Provider and Home Health Travel Ot Call non-emergency contact if: you have any medication questions and your symptoms worsen Follow-up/Referrals: Blair Davis, [Primary Care Provider] - 08/26/21 2:00 pm () Diet: Heart Healthy Addtl Attending Provider Instructions: Syncope, likely from flecainide decreasing the heart's ability to increase heart rate with activity stopped flecainide reduced lisinopril to 5mg to allow for higher blood pressure, more blood flow to heart continue Toprol at 12.5mg daily let Dr. Heredia know if you are having palpitations, could potentially increase Toprol please keep appointment with [facility] to get ablation in August Lip laceration: follow up with PCP in 7-10 days to look at sutures, consider removal at that time continue Eliquis finish 3 more days of Augmentin to cover for any potential infection stay well nourished, well hydrated do not drive for 2 weeks Pending Studies at Discharge: No Stand-Alone Forms: [facility] Medications and DC Order Prescriptions: New lisinopril [Zestril] 5 mg Tablet 5 mg PO QAM 30 Days Qty: 30 RF: 0 amoxicillin-pot clavulanate [Augmentin] 875-125 mg Tablet 1 tab PO BIDM 3 Days Qty: 6 RF: 0 Continued Eliquis 5 mg tablet 5 mg PO BID RF: 0 multivitamin Tablet 1 tab PO DAILY@1200 RF: 0 ascorbic acid (vitamin C) [Vitamin C] 500 mg Tablet 500 mg PO BID RF: 0 metoprolol succinate 25 mg tablet extended release 24 hr 12.5 mg PO DAILY@1700 RF: 0 cholecalciferol (vitamin D3) [Vitamin D3] 125 mcg (5,000 unit) Tablet 125 mcg PO DAILY@1200 RF: 0 Boyce-3 350 mg-235 mg- 90 mg-597 mg Capsule,Delayed Release(Dr/Ec) 1 cap PO QDD RF: 0 Collagen Peptides 1 dose PO QAM RF: 0 atorvastatin 10 mg tablet 10 mg PO DAILY@1200 RF: 0 Discontinued lisinopril 10 mg tablet 10 mg PO QAM Qty: 90 RF: 3 flecainide 100 mg tablet 100 mg PO BID RF: 0 Discharge Orders: Discharge Order (Routine); Ordered 08/18/21 Ordered By: Beau Hollingsworth/Other Patient Handouts: Syncope Tx Heart Admission Data Admit Date/Time: 08/16/21 15:21 Attending Provider: Beau Kirby Admit Provider: Luis Singh Primary Care Provider: Blair Davis Other Providers: Luis Singh ; Eduardo Wang Other Interventions: Discharge Summary Assessment (RN) Last Done: 08/18/21 10:44 Coding Level of Care Code D/C DAY MANAGEMENT >30 MINS Diagnoses Syncope R55 PAF (paroxysmal atrial fibrillation) I48.0 Hypertension I10 Lip laceration S01.511A
[2021-08-18] MEDS: AMOXICILLIN/CLAVULANATE 875 MG TAB PO SCH (08:52)
[2021-08-18] MEDS: ASCORBIC ACID 500 MG TAB PO SCH (08:55)
[2021-08-18] MEDS: CHOLECALCIFEROL 5,000 UNITS 125 MCG TAB PO SCH (08:55)
[2021-08-18] MEDS ORDERED: lisinopril 5 MG TAB PO SCH (09:00)
[2021-08-18] MEDS ORDERED: METOPROLOL SUCC 25MG EXT REL TAB PO SCH (09:00)
== END 2021-08-18 11:37 | disposition home or self-care (01) ==
LOC: ED 12:19 → EDINP 12:19 → SUATTDRO 15:21 → 2N 20:00
DX: R55 Syncope and collapse; W19.XXXA Unspecified fall, initial encounter; S01.511A Laceration without foreign body of lip, initial encounter; Z20.822 Contact with and (suspected) exposure to COVID-19; Z79.899 Other long term (current) drug therapy; Z85.46 Personal history of malignant neoplasm of prostate; S00.83XA Contusion of other part of head, initial encounter; I48.0 Paroxysmal atrial fibrillation; E78.5 Hyperlipidemia, unspecified; I10 Essential (primary) hypertension; Z79.01 Long term (current) use of anticoagulants; M81.0 Age-related osteoporosis without current pathological fracture

== ENCOUNTER 2022-11-30 05:10 | Observation (INO) ==
--- NOTE | 2022-11-27 08:53 | Anesthesiology Consultation ---
Date of Service November 27, 2022 Assessment & Plan (1) Encounter for pre-operative examination: Chart Review Chart Review: Acceptable Risk for Surgery and Patient NOT seen in Pre Admission Testing Pt requiring admission post operatively. Plan for recheck with [facility] AM DOS due to possibility that patient may have a roommate. OR aware. [facility] order placed -COVID screening: Per PAT nursing assessment on 11/26/22. No known COVID-19 positive contacts or current COVID-19 related symptoms. Travel screen negative. Patient vaccinated for Covid. At surgeon discretion if preop Covid testing being done. Patient seen by cardiology 11/03/2022 = seen for follow-up. Patient feels well. Notes occasional palpitations. Patient walks his dog 2.5 miles per day without difficultiesthere is a long hillshe is able to climb without having to stop. Describes functional capacity is stable. Symptomatic PVCs/PACs and runs of atrial tachycardia. [id number] score 3currently on apixaban. Status post pulmonary vein isolation August 2020 with induction of both paroxysmal atrial tachycardia from the pulmonary vein and incessant atrial fibrillation. Hyperten kaykay. Hyperlipidemia. Patient is feeling well from my standpoint and remains stable. Can take extra Toprol if palpitations become bothersome. Functional capacity stable. BP elevated in office todayHome BPs are well controlled. Additionally heart rate is usually in low 60s to low 70s. Patient should call if heart rate increases. Tolerating anticoagulation. Follow-up in 6 months. History Surgery Operation Date: 11/30/22 07:15 Proposed Procedures p Left Quadriceps Tendon Repair - Masoud Amos MD Height/Weight Height: 5 ft 9 in Weight: 70.307 kg Allergies Allergy/AdvReac Type Severity Reaction Status Date / Time No Known Allergies Allergy Verified 11/26/22 09:34 Medications Home Medications Medication Instructions Recorded Confirmed Last Taken apixaban 5 mg tablet (Eliquis) 5 mg PO BID 07/22/21 11/26/22 08/16/21 07:00 Collagen Peptides 1 dose PO QAM 08/16/21 11/26/22 08/16/21 07:00 ascorbic acid (vitamin C) 500 mg 500 mg PO BID 08/16/21 11/26/22 08/16/21 07:00 tablet (Vitamin C) cholecalciferol (vitamin D3) 125 125 mcg PO QPM 08/16/21 11/26/22 08/15/21 12:00 mcg (5,000 unit) tablet (Vitamin D3) multivitamin 1 tab PO QPM 08/16/21 11/26/22 08/15/21 12:00 omega 3 350 mg-dha 235 mg-epa 90 1 cap PO QAM 08/16/21 11/26/22 08/15/21 07:00 mg-fish oil 597 mg capsule,delay rel ([place]-3) psyllium husk 3.4 gram/5.4 gram 1 tbsp PO DAILY 10/10/21 11/26/22 Unknown oral powder (Metamucil) metoprolol succinate 25 mg 25 mg PO QPM 12/08/21 11/26/22 Unknown tablet,extended release 24 hr lisinopril 5 mg tablet (Zestril) 5 mg PO QAM #90 tabs 09/07/22 11/26/22 Unknown atorvastatin 10 mg tablet 10 mg PO QPM 11/26/22 11/26/22 Unknown Past Medical History Medical History (Updated 11/27/22 @ 08:51 by Reanna Stephenson PA-C) Atrial tachycardia Status post pulmonary vein isolation August 2020 with induction of both paroxysmal atrial tachycardia from the pulmonary vein and incessant atrial fibrillation per cardio records Basal cell carcinoma (BCC) of abdomen s/p excision in office Chronic anticoagulation Dyslipidemia Hydrocele "COMES AND GOES, NO RECENT ISSUES" Hypertension Male erectile disorder of organic origin Male stress incontinence Osteoporosis PAF (paroxysmal atrial fibrillation) (~02/2021) F/U [facility] ON ELIQUIS Pre-diabetes Hgb A1C 5.7 in 05/2022 Prostate cancer (~2012) followed by Urology Past Family History Family History Father Leukemia Hypertension Mother Hypertension Brain tumor Sister Hypertension Other No family history of adverse response to anesthesia Past Surgical History Surgical History History of appendectomy History of bowel resection for perforated bowel History of cardiac radiofrequency ablation 09/2021, [facility] [place]; F/U [facility] History of colonoscopy Last 09/2018 no further screening recommended History of colostomy History of colostomy reversal 04/2018 History of evacuation of hematoma right lower leg History of left inguinal hernia repair History of prostate biopsy malignant History of prostatectomy (~2012) 2012 History of right inguinal hernia repair History of tonsillectomy and adenoidectomy History of wisdom tooth extraction Social History Smoking Status: Never smoker Do You Dip or Chew Tobacco: No Hx Alcohol Use: Yes Alcohol type: beer alcohol intake frequency: holidays/special occasions only Hx Substance Use: No substance use type: does not use Testing Laboratory Results 10/30/22= WBC: 7.02 H/H: 15.9/47.8 PLATELETS: 230 SODIUM: 139 POTASSIUM: 4.4 CHLORIDE: 106 CO2: 28 BUN: 23 CREATININE: 1.05 GLUCOSE: 101 Electrocardiogram Date: 11/03/22 Findings: + NSR @ (60bpm) Nonspecific T wave abnormality When compared to EKG from January 292PVCs are no longer present per cardio Echocardiogram Date: 08/17/21 EF: 60 to 65% LV Function: normal RWMA: + none Other Findings: no LVH Mild WA. Other Testing Carotid doppler 08/17/21= Mild atherosclerosis without hemodynamically significant stenosis. Normal antegrade vertebral flow bilaterally.
[2022-11-30] MEDS ORDERED: ceFAZolin 2000MG 2,000 MG/15 ML SYR IV SCH (06:00)
[2022-11-30] MEDS ORDERED: LACTATED RINGER'S 1,000 ML IV SCH (06:00)
[2022-11-30] MEDS ORDERED: LR 15ML/HR IV SCH (06:00)
[2022-11-30] MEDS ORDERED: ROPIVACAINE 0.5% 5 MG/ML 30 ML VIAL ONE (06:36)
[2022-11-30] MEDS ORDERED: fentaNYL citrate PF 100 MCG/2 ML VIAL ONE (06:44)
[2022-11-30] MEDS ORDERED: LIDOCAINE 2% MPF LOCAL 5 ML VIAL ONE (06:44)
[2022-11-30] MEDS ORDERED: PROPOFOL IV EMULSION 10 MG/ML 20 ML VIAL IV ONE (06:44)
[2022-11-30] MEDS ORDERED: MIDAZOLAM HCL 1 MG/ML 2ML VIAL ONE (06:44)
[2022-11-30] MEDS ORDERED: ONDANSETRON INJ 2 MG/ML 2 ML VIAL ONE (06:44)
[2022-11-30] MEDS ORDERED: ATROPINE SULFATE 0.1 MG/ML 10ML SYR IV PRN (06:58)
[2022-11-30] MEDS ORDERED: fentaNYL citrate PF 100 MCG/2 ML VIAL IV PRN (06:58)
[2022-11-30] MEDS ORDERED: ePHEDrine sulfate 50 MG/ML AMP IV PRN (06:58)
[2022-11-30] MEDS ORDERED: ONDANSETRON INJ 2 MG/ML 2 ML VIAL IV PRN ×2 (06:58→09:53)
--- NOTE | 2022-11-30 06:59 | History & Physical Bridge Note ---
Date of Service November 30, 2022 History & Physical Bridge Note I have examined the patient, reviewed the History & Physical and in the interval since the performance of the History & Physical I have noted the following changes of clinical significance: no changes noted
--- NOTE | 2022-11-30 08:58 | Operative Report ---
Post Operative Report Pre & Post Diagnosis Operation Date: 11/30/22 07:15 Pre-Op Diagnosis: Quadriceps tendon rupture Post-Op Diagnosis: Quadriceps tendon rupture I identified the patient and participated in the time-out.: Yes Procedure Operation Date: 11/30/22 07:15 Actual Procedures p Left Quadriceps Tendon Repair(Left) - Masoud Amos MD Surgeon Masoud Amos MD Acquisition Marketing Manager Hanna Razo no resident or fellow available Estimated Blood Loss 5 Findings Consistent with Post-Op Diagnosis Specimens None Anesthesia Type General Regional Complications none Disposition Accompanied Patient To Recovery: No Disposition: Recovery Room Indications Param is 77. He injured his leg going down the steps about a week ago. He has clinical and radiographic evidence of a complete quadriceps tendon rupture. I recommended surgery and he agreed to proceed. Description of Procedure Informed consent obtained. Patient identified. He identified the operative site as the left knee. I marked with my initials. A preoperative surgical timeout was performed. A preop dose of IV antibiotics was given. He was taken to the OR positioned supine on the operating room table. The anesthetic was administered. The leg was prescribed prepped and draped in usual sterile fashion. The examination showed softness at the quadriceps insertion onto the patella with a palpable defect. There was bruising on the back of the leg. DVT prophylaxis with foot pumps intraoperatively. Postop early mobility chemoprophylaxis and mechanical devices. Limb exsanguinated with the Esmarch. Tourniquet inflated 250 mmHg. Approximately 15 cm longitudinal incision was made over the patella. Electrocautery was utilized down to the subcutaneous tissues. The quadriceps tear was identified. Dissection was performed medial and lateral to identify the retinacular tears which were present. Extending somewhat proximal lateral by about 3 to 4 cm and into the VMO on the medial side. The wound and knee were irrigated. The undersurface of the patella was palpated and found to be intact with perhaps some softened cartilage distally. Two #2 FiberWire's were weaved through the quadriceps tendon. Using a modified Krakw stitch taking about 5-7 bites for each throw. The proximal patella was exposed and debrided. The periosteum and quadriceps tendon remnant were elevat ed anteriorly. There was a large superior osteophyte which was debrided. All of the superior patella was debrided with a rongeur. Debrided of soft tissue with curette and electrocautery. Bone excoriated. I then placed 3 drill holes one central and one medial and 1 lateral. Shuttling was performed to pass the central 2 stitches through the central hole and the medial and lateral sutures through the respective holes. They were then repaired distally. I ensured that all of the slack was out of the sutures. The tourniquet was then let down and meticulous hemostasis was performed. The knee was held in full extension and a tension-free repair was performed tying the knots and backing up with reverse half hitches on alternating posts. The stitches were passed either the medial or lateral and tied directly over the bone. This resulted in a secure repair. The periosteum and quadriceps tendon remnant were reapproximated over to the top of the tendon using interrupted #1 Vicryl. The medial and lateral retinacular tears were repaired in interrupted fashion with [id number] stitches using #1 Vicryl. Taper needles. [place] flexion was then 90 degrees with good integrity of the repair. Irrigation was performed. Vicryl sutures were placed over the small divisions in the patellar tendon to retrieve the stitches. The skin was then closed with 0 and 2-0 Vicryl followed by kaelyn on the skin. The leg was cleaned with wet and dry sponges and a soft sterile dressing was applied Xeroform 4 x 4's ABD soft wrap full- length Charles wrap and knee brace. Patient awakened from anesthesia without difficulty and taken to the recovery room in stable condition. There were no specimens or complications. Counts were correct and blood loss is estimated to be 10 cc. At the conclusion the operation I spoke to patient's daughter informed her of my findings and postop instructions were discussed. We will restart his blood thinner the morning after surgery. He will be able to weight-bear as tolerated with a knee brace on. He will then be rehabilitated as an outpatient according to the quadriceps tendon repair protocol. Tendon tissue of good quality. Drill holes were made w ith a 2.0 drill bit from superior to inferior. Will suture passer utilized. I attest to the content of the Intraoperative Record and any orders documented therein. Any exceptions are noted below.
--- NOTE | 2022-11-30 08:59 | Operative Report ---
Post Operative Report Pre & Post Diagnosis Operation Date: 11/30/22 07:15 Pre-Op Diagnosis: Quadriceps tendon rupture Post-Op Diagnosis: Quadriceps tendon rupture I identified the patient and participated in the time-out.: Yes Procedure Operation Date: 11/30/22 07:15 Actual Procedures p Left Quadriceps Tendon Repair(Left) - Masoud Amos MD Surgeon Masoud Amos M.D. Metal Welder Hanna Razo PA-C Estimated Blood Loss 5 Findings Consistent with Post-Op Diagnosis Specimens None Drains None Anesthesia Type General Description of Procedure Patient was taken to the operating room, placed under general anesthesia. Time out performed, prepped and draped in routine sterile fashion. I was present during the entire case, please see Dr. Amos's operative report for further detail. Patient was awakened and taken to the recovery room in stable con dition. I attest to the content of the Intraoperative Record and any orders documented therein. Any exceptions are noted below.
[2022-11-30] MEDS ORDERED: ePHEDrine sulfate 50 MG/ML SYR ONE (09:07)
--- NOTE | 2022-11-30 09:42 | Anesthesiology Progress Note ---
Date of Service November 30, 2022 Anesthesia Post Procedure Vital Signs Vital Signs: Temp Pulse Resp BP Pulse Ox O2 Del Method O2 Flow Rate 11/30/22 09:35 97.7 F 11/30/22 09:25 62 16 125/62 95 Room Air 11/30/22 09:15 61 18 127/66 96 Room Air 11/30/22 09:05 63 18 139/73 100 Oxymask 5 11/30/22 08:57 97.5 F L 67 18 141/79 H 100 Oxymask 5 11/30/22 05:34 98.2 F 73 20 171/100 H 97 Room Air Transfer of Care Handoff Completed per policy Notes Mental Status: alert / awake / arousable and participated in evaluation Patient Amnestic to Procedure: Yes Nausea / Vomiting: adequately controlled Pain: adequately controlled Airway Patency, RR, SpO2: stable & adequate BP & HR: stable & adequate Hydration State: stable & adequate Anesthetic Complications: no major complications apparent and Pt Satisfied with anesthetic care
[2022-11-30] MEDS ORDERED: NALOXONE HCL 0.4 MG/1 ML VIAL/CARP IV PRN (09:53)
[2022-11-30] MEDS ORDERED: TAMSULOSIN HCL 0.4 MG CAP PO PRN (09:53)
[2022-11-30] MEDS ORDERED: HYDROmorphone INJ 0.5 MG/0.5 ML SYR IV PRN (09:53)
[2022-11-30] MEDS ORDERED: oxyCODONE HCL IR 5 MG TAB (IMMEDIATE RELEASE) PO PRN (09:53)
[2022-11-30] MEDS ORDERED: MAGNESIUM HYDROXIDE SUSP 30 ML UDC PO PRN (09:53)
[2022-11-30] MEDS ORDERED: bisacodyL 10 MG SUPP PR PRN (09:53)
[2022-11-30] MEDS: SODIUM CHLORIDE 0.9% 1000ML 1,000 ML IV SCH ×2 (10:17→19:43)
[2022-11-30] MEDS: ASCORBIC ACID 500 MG TAB PO SCH ×2 (10:58→20:23)
[2022-11-30] MEDS: lisinopril 5 MG TAB PO SCH (10:58)
[2022-11-30] MEDS: OMEGA-3 (PURIFIED FISH OIL) 1 GM CAP PO SCH (10:58)
[2022-11-30] MEDS: PSYLLIUM or GUAR GUM FIBER POWDER PACKET PO SCH (10:58)
[2022-11-30] MEDS ORDERED: MULTIVITAMIN TAB PO SCH (12:00)
[2022-11-30] MEDS ORDERED: CHOLECALCIFEROL 5,000 UNITS 125 MCG TAB PO SCH (12:00)
[2022-11-30] MEDS ORDERED: ATORVASTATIN 10 MG TAB PO SCH (12:00)
[2022-11-30] MEDS: ceFAZolin 2000MG 2,000 MG/15 ML SYR IV SCH ×2 (15:00→22:27)
[2022-11-30] MEDS: ACETAMINOPHEN 500 MG TAB PO SCH ×2 (15:00→22:26)
--- NOTE | 2022-11-30 15:13 | Orthopedic Progress Note ---
Date of Service November 30, 2022 Assessment & Plan (1) Quadriceps tendon rupture: Plan: Patient is postop day 0 status post a left quadricep tendon repair with Dr. Amos Knee immobilizer on at all times He will continue weightbearing as tolerated with knee brace on for ambulating and transfers using walker. He will continue with ice over the left knee as needed for pain control. Continue with pain medication as needed He will restart Eliquis tomorrow morning for DVT prophylaxis Continue with foot pumps at this time. Anticipate discharge home tomorrow with family prior to lunch Patient is scheduled for outpatient physical therapy on 12/08/2022 Present on Admission?: Yes Admission and Anticipated Discharge Date Admission Date: November 30, 2022 Subjective Patient is a 77-year-old male who is status post a left quadriceps tendon repair with Dr. Amos today. He is seen bedside this p.m. at approximately 3:00. He is in good spirits he is alert and oriented x3. He states he is doing well. He states he is not having any pain and had been up into the chair earlier. He states he was able to eat his breakfast and lunch tray. He denies any nausea or vomiting. He denies any fever or chills. He offers no concerns at this time. Review of Systems Review of Systems: Please refer to HPI Physical Exam Physical Exam: General: Patient is alert and oriented x3 no acute distress pleasant and conversive Musculoskeletal/integumentary: Dressing is intact negative for any soiling. Knee immobilizer is in place. Ice pack is over top of the knee. Patient is able to freely flex and extend toes. He is able to dorsiflex and plantarflex the left ankle. Negative for any calf pain. Left lower extremity is neurovascularly intact. Results & Data Vital Signs (Past 12 Hours) Vital Signs Temp Pulse Resp BP Pulse Ox O2 Del Method O2 Flow Rate 11/30/22 12:52 36.3 C L 70 14 133/67 98 Room Air 11/30/22 11:52 36.2 C L 67 16 145/72 H 97 Room Air 11/30/22 11:01 36.2 C L 63 14 173/89 H 96 Room Air 11/30/22 10:18 36.3 C L 65 18 168/88 H 97 Room Air 11/30/22 09:35 36.5 C 11/30/22 09:25 62 16 125/62 95 Room Air 11/30/22 09:15 61 18 127/66 96 Room Air 11/30/22 09:05 63 18 139/73 100 Oxymask 5 11/30/22 08:57 36.4 C L 67 18 141/79 H 100 Oxymask 5 11/30/22 05:34 36.8 C 73 20 171/100 H 97 Room Air Laboratory Results 11/30/22 Range/Units 05:25 SARS-CoV-2, RNA, NAAT NEGATIVE (NEGATIVE)
[2022-11-30] MEDS ORDERED: METOPROLOL SUCC 25MG EXT REL TAB PO SCH (17:00)
[2022-11-30] MEDS: DOCUSATE SODIUM 100 MG CAP PO SCH (20:23)
[2022-12-01] MEDS: ACETAMINOPHEN 500 MG TAB PO SCH (05:21)
--- NOTE | 2022-12-01 08:09 | Progress Notes ---
DATE OF SERVICE: 12/01/2022. SUBJECTIVE: Param is resting comfortably on bed. He reports no problems. He is eating well and d enies any nausea, chest pains or shortness of breath. His pain is 4/10 and reasonably controlled wit h Tylenol. He was out of bed to chair yesterday. OBJECTIVE: He is afebrile. His vital signs are stable. His urine output is adequate. He will be r estarted on his Eliquis later this morning. On exam, the dressing is clean and dry. Sensation intact to the foot. PT pulse 1+. He has 5/5 ankl e and toe plantarflexion, dorsiflexion and eversion. IMPRESSION: Left quadriceps tendon repair. PLAN: He is doing very well. I discussed with him the results of the surgery. He may weightbear as tolerated with the brace locked in extension. He will have PT and OT today. If he meets criteria, we can plan on discharging him home. He will follow up on Wednesday for physical therapy and can leave his dressing intact until then. Keep things clean and dry. Do not ambulate without the knee immobil izer. His Eliquis will serve for his DVT prophylaxis. If there are any problems with pain, fever, s welling or any other problems or questions, please call the office. He has received a routine course of postoperative IV antibiotics. Job ID: [id number]
[2022-12-01] MEDS: ASCORBIC ACID 500 MG TAB PO SCH (08:19)
[2022-12-01] MEDS: lisinopril 5 MG TAB PO SCH (08:19)
[2022-12-01] MEDS: DOCUSATE SODIUM 100 MG CAP PO SCH (08:19)
[2022-12-01] MEDS: OMEGA-3 (PURIFIED FISH OIL) 1 GM CAP PO SCH (08:19)
[2022-12-01] MEDS: PSYLLIUM or GUAR GUM FIBER POWDER PACKET PO SCH (08:19)
[2022-12-01] MEDS ORDERED: APIXABAN 5 MG TABLET PO SCH (09:00)
--- NOTE | 2022-12-01 09:13 | Orthopedic Progress Note ---
Date of Service December 01, 2022 Assessment & Plan (1) Quadriceps tendon rupture: Plan: Patient is postop day # 1 status post a left quadriceps tendon repair with Dr. Amos Knee immobilizer on at all times He will continue weightbearing as tolerated with knee brace on for ambulating and transfers using walker. He will continue with ice over the left knee as needed for pain control. Continue with pain medication as needed, prescription for percocet was sent pre operatively He restarted Eliquis and this will be utilized for DVT prophylaxis He was advised on keeping the dressing intact until f/u appointment in PT and to keep clean and dry Anticipate discharge home today with family prior to lunch if PT/OT feels he is safe to be d/c. Patient is scheduled for outpatient physical therapy and advised to call the office with any concerns. Present on Admission?: Yes Admission and Anticipated Discharge Date Admission Date: November 30, 2022 Subjective Patient is a 77-year-old male who is status post a left quadriceps tendon repair with Dr. Amos 11/30/2022. He is seen this am sitting upright in bedside chair. He is in good spirits he is alert and oriented x3. He states he is doing well. He states he started to have pain this moring around 4:30 am. He was just given pain medication around 5:30 and states the pain medication is helping and rates as 5/10. He denies any paresthesia or calf pain. He denies any fever or chills. He offers no concerns at this time.He states he has not seen PT/OT yet. Review of Systems Review of Systems: Please refer to HPI Physical Exam Physical Exam: General: Patient is alert and oriented x3 no acute distress pleasant and conversive Musculoskeletal/integumentary: Dressing is intact negative for any soiling. Knee immobilizer is in place and ice pack is over top of the knee. Left leg is elevated on step stool. Patient is able to freely flex and extend toes. He is able to dorsiflex and plantarflex the left ankle. Negative for any calf pain. DP 2+Left lower extremity is neurovascularly intact. Results & Data Vital Signs (Past 12 Hours) Vital Signs Temp Pulse Resp BP Pulse Ox O2 Del Method 12/01/22 07:30 36.3 C L 67 16 161/83 H 96 Room Air 12/01/22 02:04 36.6 C 68 16 124/65 95 Room Air 11/30/22 21:43 36.5 C 69 16 122/68 95 Room Air
--- NOTE | 2022-12-01 15:04 | Discharge Summary ---
Date of Service December 01, 2022 Discharge Data Procedures Performed Operation Date: 11/30/22 07:15 Actual Procedures p Left Quadriceps Tendon Repair(Left) - Masoud Amos MD Hospital Course (1) Quadriceps tendon rupture: Patient was kept in observation at [facility] after undergoing an elective quadriceps tendon repair of his left knee. Surgery was performed with general anesthesia. He tolerated the procedure well without any intraoperative complications. He was given 2 g of IV Ancef for surgical prophylaxis which was continued for 24 hours after his procedure. Pos toperatively he was allowed to weight-bear as tolerated with the use of a knee immobilizer and crutches or walker. Physical therapy and Occupational Therapy consults were placed. His home medications were resumed. He was given a regular diet. He was given Tylenol, oxycodone and Dilaudid as needed for postoperative pain control. His postoperative dressings were kept in place. He was safe and did well with physical therapy and Occupational Therapy and was deemed safe for discharge to his home. He was discharged to his home with outpatient physical therapy with his on December 01, 2022. He will follow-up on December 04, 2022 as scheduled. Discharge instructions were reviewed. He was given pain medication preoperatively. All questions were answered.
== END 2022-12-01 11:37 | disposition home or self-care (01) ==
LOC: ASU 05:10 → 3E 05:10